=== PATIENT | female | born 1980 | race Caucasian/White ===

== ENCOUNTER 2016-06-01 09:07 | Emergency (ER) | payer MEDICAID ==
[~2016-06-01] VITALS: Ht 147.3 cm; Wt 77.1 kg
[~2016-06-01 09:07] MED LIST: ATEN50TA PO; ESZO3TAB10 PO; LORA2TAB95 PO; OXYC-133; ZOLP10TA2 PO; [UNRECOGNIZED DRUG - CODE]
[2016-06-01 09:12] VITALS: BP 119/90; PULSE 97; RESP 16; TEMP 97.8; O2SAT 99
--- NOTE | 2016-06-01 09:19 | NUR ---
Patient to ER bed 6 to gown for evaluation. Side rails up. Report given to Colleen TORIBIO.
--- NOTE | 2016-06-01 09:25 | NUR ---
Patient in bed, stable condition, alert and oriented x4. States was pulling laundry out and fell onto right side of body hitting leg and arm. States has pain in right knee, right thigh and right upper arm. Patient ambulating with steady gait, active range of motion in all joints. No deformities, bruising, or injury to body. No other complaints/injuries per patient or noted.
--- NOTE | 2016-06-01 09:34 | NUR ---
ER at bedside examining patient.
[2016-06-01] MEDS ORDERED: HYDROcodone/ACETAMIN 7.5-325 MG TAB PO ONE (09:45)
[2016-06-01] MEDS ORDERED: LORazepam 1 MG TABLET PO ONE (09:45)
--- NOTE | 2016-06-01 10:03 | NUR ---
Patient states can not urinate at this time (for pregancy test).
--- NOTE | 2016-06-01 10:31 | NUR ---
Patient refusing urine for test. aware.
[2016-06-01 11:05] VITALS: BP 121/77; PULSE 97; RESP 16; TEMP 98.1; O2SAT 99
--- NOTE | 2016-06-01 11:05 | NUR ---
Patient given written and verbal discharge instructions and verbalizes understanding. ER MD Dr. Lima discussed with patient the results and treatment provided. Patient in stable condition. ID arm band removed. No Rx given. Patient educated on pain management and to follow up with PMD. Pain Scale 0/10 Opportunity for questions provided and answered. Pt. not driving, waiting for her boyfriend to pick her up in the waiting area
== END 2016-06-01 11:05 | disposition home or self-care (01) ==
LOC: SED 09:07
DX: S80.01XA Contusion of right knee, initial encounter (principal); S70.11XA Contusion of right thigh, initial encounter; S40.021A Contusion of right upper arm, initial encounter; I10 Essential (primary) hypertension; Z88.0 Allergy status to penicillin; Z88.6 Allergy status to analgesic agent; Z91.048 Other nonmedicinal substance allergy status; W19.XXXA Unspecified fall, initial encounter; Y93.E2 Activity, laundry; Y92.89 Other specified places as the place of occurrence of the external cause; Y99.8 Other external cause status
CPT/HCPCS: 99283

== ENCOUNTER 2016-06-02 08:55 | Emergency (ER) | payer MEDICAID ==
[~2016-06-02] VITALS: Ht 147.3 cm; Wt 77.1 kg
[2016-06-02 08:55] VITALS: BP 121/80; PULSE 78; RESP 19; TEMP 98.1; O2SAT 97
--- NOTE | 2016-06-02 08:55 | NUR ---
BROUGHT IN BY PATT FARNSWORTH, PLACED IN BED #6 AND TRIAGED. REPORT GIVEN TO NURYS.
--- NOTE | 2016-06-02 09:01 | NUR ---
DR ROTH AT BEDSIDE FOR EVALUATION
[2016-06-02 09:12] VITALS: BP 117/78; PULSE 74; RESP 17; TEMP 98.7
--- NOTE | 2016-06-02 09:15 | NUR ---
OFFERED NON-NARCOTIC PAIN MEDICATION TO WHICH PT REFUSED.
[2016-06-02 09:20] VITALS: O2SAT 97
--- NOTE | 2016-06-02 09:20 | NUR ---
Patient given written and verbal discharge instructions and verbalizes understanding. ER MD discussed with patient the results and treatment provided. Given copies of tests performed in ER. Patient in stable condition. ID arm band removed. Rx of NONE given. Patient educated on pain management and to follow up with PMD. Pain Scale 0/10. Opportunity for questions provided and answered.
== END 2016-06-02 09:12 | disposition home or self-care (01) ==
LOC: SED 08:55
DX: G89.4 Chronic pain syndrome (principal); M79.601 Pain in right arm; I10 Essential (primary) hypertension; M41.9 Scoliosis, unspecified; Z88.0 Allergy status to penicillin; Z88.6 Allergy status to analgesic agent; Z91.048 Other nonmedicinal substance allergy status
CPT/HCPCS: 99283

== ENCOUNTER 2016-06-07 06:20 | Emergency (ER) | payer MEDICAID ==
[~2016-06-07] VITALS: Ht 147.3 cm; Wt 77.1 kg
[2016-06-07 06:20] VITALS: BP 136/71; PULSE 100; RESP 18; TEMP 97.8; O2SAT 96
--- NOTE | 2016-06-07 06:20 | NUR ---
PT BIB [facility] C/O BACK PAIN. PAIN SCALE 10/10. PT ALSO STATED SHE ALSO HAVE CHEST PAIN AND SOB BUT O2 SATURATION 96%. PT NOT IN CP DISTRESS AND WILL CONTINUE TO MONITOR.
--- NOTE | 2016-06-07 06:20 | NUR ---
Patient to ER bed 6 to gown for evaluation. Side rails up.
--- NOTE | 2016-06-07 07:00 | NUR ---
ER at bedside examining patient.
[2016-06-07 07:29] VITALS: BP 121/76; PULSE 78; RESP 17; TEMP 97.8; O2SAT 99
--- NOTE | 2016-06-07 07:31 | NUR ---
Patient given written and verbal discharge instructions and verbalizes understanding. ER MD discussed with patient the results of physical exam. ID arm band removed. No Rx given. Patient educated on pain management and to follow up with [facility] for Poly Substance Abuse. Pain Scale 3/10 Dr. Sun notified pain no medication given due to substance abuse and no ride home. Opportunity for questions provided and answered. Pt yelling as exiting emergency room stating she wants pain medication and is going to call 911. Dr Sun discussed with patient plan of care and informed pt to f/u with [facility] for detox from poly substance.
== END 2016-06-07 07:31 | disposition home or self-care (01) ==
LOC: SED 06:20
DX: Z76.5 Malingerer [conscious simulation] (principal); I10 Essential (primary) hypertension; R07.9 Chest pain, unspecified; F41.9 Anxiety disorder, unspecified; M41.9 Scoliosis, unspecified; Z88.0 Allergy status to penicillin; Z91.048 Other nonmedicinal substance allergy status; Z88.6 Allergy status to analgesic agent
CPT/HCPCS: 99283

== ENCOUNTER 2016-07-09 12:42 | Emergency (ER) | payer MEDICAID ==
[~2016-07-09] VITALS: Ht 147.3 cm; Wt 76.7 kg
[2016-07-09 12:50] VITALS: BP 114/67; PULSE 76; RESP 18; TEMP 98.2; O2SAT 98
--- NOTE | 2016-07-09 13:11 | NUR ---
Placed in room 3 . To gown for exam. Side rails up.
--- NOTE | 2016-07-09 13:13 | NUR ---
pt present to ED c/o of lower back pain for a couple of days, umbilical hernia pain for a while.pt awake,alert,no distress noted.
--- NOTE | 2016-07-09 13:23 | NUR ---
EVAN Chu at bedside examining patient.
--- NOTE | 2016-07-09 13:45 | NUR ---
Dr. Monahan at the bedside evaluating Pt. Currently awaiting for new orders.
[2016-07-09 13:50] VITALS: BP 124/64; PULSE 65; RESP 22; TEMP 98.5; O2SAT 99
--- NOTE | 2016-07-09 13:51 | NUR ---
Patient given written and verbal discharge instructions and verbalizes understanding. ER MD discussed with patient the results and treatment provided. Given copies of tests performed in ER. Patient in stable condition. ID arm band removed. IV catheter removed intact and dressing applied, no active bleeding. Rx of flexeril 5mg tab given. Patient educated on pain management and to follow up with PMD. Pain Scale 2/10. Opportunity for questions provided and answered.
== END 2016-07-09 13:51 | disposition home or self-care (01) ==
LOC: SED 12:42
DX: G89.29 Other chronic pain (principal); I10 Essential (primary) hypertension; Z88.5 Allergy status to narcotic agent; Z88.0 Allergy status to penicillin; Z91.048 Other nonmedicinal substance allergy status
CPT/HCPCS: 81025; 99283

== ENCOUNTER 2016-08-05 13:41 | Emergency (ER) | payer MEDICAID ==
[~2016-08-05] VITALS: Ht 147.3 cm; Wt 80.3 kg
[~2016-08-05 13:41] MED LIST changes: -ESZO3TAB10 PO; -LORA2TAB95 PO
--- NOTE | 2016-08-05 13:45 | NUR ---
Pt report received from CATARINO Crouch. Pt c/o mid chest pain since yesterday. Pt denies c/o radiation, no N/V reported. Non diaphoretic, VSS. Dr. Hernandez made aware of complaint.
--- NOTE | 2016-08-05 13:45 | NUR ---
Pt triaged, pt on stable condiiton VS WNL, EKG given to Dr Hernandez.
[2016-08-05 13:54] VITALS: BP_SYST 116
--- NOTE | 2016-08-05 14:00 | NUR ---
environmental services floor tech drawing cardiac blood work at this time
[2016-08-05 14:18] LABS: BASOPHILS # (AUTO) 0.1 K/uL (0.0-0.2); BASOPHILS % (AUTO) 0.7 % (0.0-2.0); EOSINOPHILS # (AUTO) 0.1 K/uL (0.0-0.4); EOSINOPHILS % (AUTO) 1.6 % (0.0-4.0); LYMPHOCYTES # (AUTO) 2.2 K/uL (1.0-5.5); MEAN CORPUSCULAR HEMOGLOBIN 22 pg (27-31); MEAN CORPUSCULAR HGB CONC 31 % (32-36); MEAN CORPUSCULAR VOLUME 70 fL (79.0-98.0); MONOCYTES # (AUTO) 0.8 K/uL (0.0-1.0); NEUTROPHILS # (AUTO) 5.8 K/uL (1.8-7.7); NEUTROPHILS % (AUTO) 63.7 % (40.0-70.0); PLATELET COUNT (AUTO) 227 K/uL (130-430); RED BLOOD CELL COUNT(AUTO) 4.58 MIL/uL (4.2-6.2); RED CELL DISTRIBUTION WIDTH 15.5 % (9.0-15.0); WHITE BLOOD COUNT (AUTO) 8.9 K/uL (4.8-10.8)
[2016-08-05 14:32] LABS: CALCIUM 9.1 mg/dL (8.4-11.0); CREATININE 0.7 mg/dL (0.55-1.30); POTASSIUM 3.6 mmol/L (3.5-5.1)
--- NOTE | 2016-08-05 15:19 | NUR ---
Dr. Hernandez at bedside to discuss POC.
--- NOTE | 2016-08-05 15:20 | NUR ---
Pt wants refill of psyc meds. States "my boyfriend has them and I can't get in touch with him."
[2016-08-05] MEDS ORDERED: IBUPROFEN 400 MG TABLET PO ONE (15:30)
--- NOTE | 2016-08-05 15:36 | NUR ---
endorsed patient from Yue Cordova.
[2016-08-05 15:41] LABS: SALICYLATE 1 mg/dL (3-30)
[2016-08-05 15:42] LABS: ALCOHOL, BLOOD < 3 mg/dL (<10)
[2016-08-05 16:22] LABS: BILIRUBIN,URINE NEGATIVE (NEGATIVE); BLOOD, URINE NEGATIVE (NEGATIVE); CLARITY/URINE CLEAR (CLEAR); COLOR,URINE YELLOW (YELLOW); GLUCOSE,URINE NEGATIVE (NEGATIVE); KETONES,URINE NEGATIVE (NEGATIVE); LEUKOCYTE ESTERASE ,URINE NEGATIVE (NEGATIVE); NITRITE, URINE NEGATIVE (NEGATIVE); PROTEIN URINE NEGATIVE (NEGATIVE); UROBILINOGEN,URINE 0.2 (0.2-1.0)
[2016-08-05 16:37] LABS: BARBITURATE, URINE POSITIVE (NEG <=200); BENZODIAZEPINE, URINE POSITIVE (NEG <=150); CANNABINOID, URINE NEGATIVE (NEG <=50); COCAINE, URINE NEGATIVE (NEG <=150); METHAMPHETAMINES SCREEN,URINE NEGATIVE (NEG <=500); OPIATE, URINE POSITIVE (NEG <=100); PHENCYCLIDINE SCREEN,URINE NEGATIVE (NEG <=25); UR TRICYCLIC ANTIDEPRESSANTS POSITIVE (NEG <=300); URINE AMPHETAMINE NEGATIVE (NEG <=500); URINE METHADONE NEGATIVE (NEG <=200); URINE OXYCODONE SCREEN NEGATIVE (NEG <=100); URINE PROPOXYPHENE SCREEN NEGATIVE (NEG <=300)
--- NOTE | 2016-08-05 16:53 | NUR ---
Psych eval team at bedside.
[2016-08-05 17:00] VITALS: BP_SYST 112
--- NOTE | 2016-08-05 17:00 | NUR ---
Patient given written and verbal discharge instructions and verbalizes understanding. ER MD discussed with patient the results and treatment provided. Patient in stable condition. ID arm band removed. Patient educated on pain management and to follow up with PMD. Pain Scale 0/10. Opportunity for questions provided and answered.
== END 2016-08-05 17:00 | disposition home or self-care (01) ==
LOC: SED 13:41
DX: R07.9 Chest pain, unspecified (principal); I10 Essential (primary) hypertension; Z88.5 Allergy status to narcotic agent; Z88.0 Allergy status to penicillin; Z91.048 Other nonmedicinal substance allergy status
CPT/HCPCS: 36415; 80048; 80307; 81003; 84484; 85025; 93005; 99285; G0481; G0482

== ENCOUNTER 2017-02-24 20:07 | Emergency (ER) | payer MEDICAID, OTHER ==
[~2017-02-24] VITALS: Ht 147.3 cm; Wt 81.6 kg
[2017-02-24 20:22] VITALS: BP_SYST 139
[2017-02-24 21:05] LABS: BILIRUBIN,URINE NEGATIVE (NEGATIVE); BLOOD, URINE NEGATIVE (NEGATIVE); CLARITY/URINE CLEAR (CLEAR); COLOR,URINE YELLOW (YELLOW); GLUCOSE,URINE NEGATIVE (NEGATIVE); KETONES,URINE NEGATIVE (NEGATIVE); LEUKOCYTE ESTERASE ,URINE NEGATIVE (NEGATIVE); NITRITE, URINE NEGATIVE (NEGATIVE); PH,URINE 5.5 (5.0-8.0); PROTEIN URINE NEGATIVE (NEGATIVE); UROBILINOGEN,URINE 0.2 (0.2-1.0)
[2017-02-24 21:36] LABS: BARBITURATE, URINE NEGATIVE (NEG <=200); BENZODIAZEPINE, URINE POSITIVE (NEG <=150); CANNABINOID, URINE NEGATIVE (NEG <=50); COCAINE, URINE NEGATIVE (NEG <=150); METHAMPHETAMINES SCREEN,URINE NEGATIVE (NEG <=500); OPIATE, URINE NEGATIVE (NEG <=100); PHENCYCLIDINE SCREEN,URINE NEGATIVE (NEG <=25); UR TRICYCLIC ANTIDEPRESSANTS NEGATIVE (NEG <=300); URINE AMPHETAMINE NEGATIVE (NEG <=500); URINE METHADONE NEGATIVE (NEG <=200); URINE OXYCODONE SCREEN NEGATIVE (NEG <=100); URINE PROPOXYPHENE SCREEN NEGATIVE (NEG <=300)
[2017-02-24] MEDS ORDERED: MORPHINE 4 MG/ML INJ. SYRINGE IM ONE (21:45)
[2017-02-24] MEDS ORDERED: ONDANSETRON HCL 4 MG/2 ML VIAL IM ONE (22:00)
[2017-02-24] MEDS ORDERED: LORazepam 2 MG/ML VIAL (FOR ER USE) IM ONE (23:30)
[2017-02-24 23:44] VITALS: BP_SYST 139
== END 2017-02-24 23:44 | disposition home or self-care (01) ==
LOC: SED 20:07
DX: K52.9 Noninfective gastroenteritis and colitis, unspecified (principal); I10 Essential (primary) hypertension; F41.9 Anxiety disorder, unspecified; M41.9 Scoliosis, unspecified; Z88.0 Allergy status to penicillin; Z88.6 Allergy status to analgesic agent; Z91.048 Other nonmedicinal substance allergy status; Z88.1 Allergy status to other antibiotic agents
CPT/HCPCS: 80307; 81003; 81025; 96372; 99284; J2060; J2270; J2405

== ENCOUNTER 2017-04-10 09:45 | Emergency (ER) | payer OTHER ==
[~2017-04-10] VITALS: Ht 147.3 cm; Wt 83.0 kg
[2017-04-10 10:04] VITALS: BP_SYST 116
[2017-04-10] MEDS: HYDROcodone/ACETAMIN 10-325 MG TAB PO ONE (10:42)
== END 2017-04-10 10:52 | disposition home or self-care (01) ==
LOC: SED 09:45
DX: G89.29 Other chronic pain (principal); M54.9 Dorsalgia, unspecified; I10 Essential (primary) hypertension; F41.9 Anxiety disorder, unspecified; M41.9 Scoliosis, unspecified; Z88.0 Allergy status to penicillin; Z88.6 Allergy status to analgesic agent; Z88.5 Allergy status to narcotic agent; Z91.048 Other nonmedicinal substance allergy status
CPT/HCPCS: 99283

== ENCOUNTER 2017-04-28 21:40 | Emergency (ER) | payer OTHER ==
[~2017-04-28] VITALS: Ht 147.3 cm; Wt 72.6 kg
[2017-04-28 21:55] VITALS: BP_SYST 152
--- NOTE | 2017-04-28 21:55 | NUR ---
Pt sttaes that she is out of her ativan medication and is having an anxiety attack. Pt would like a refill. Will continue to monitor. No distress noted. AAOx4.
--- NOTE | 2017-04-28 22:34 | NUR ---
ER Dr. Rico examining patient.
[2017-04-28 22:38] VITALS: BP_SYST 152
--- NOTE | 2017-04-28 22:38 | NUR ---
Patient given written and verbal discharge instructions and verbalizes understanding. ER MD discussed with patient the results and treatment provided. Patient in stable condition. ID arm band removed. Rx of Ativan given. Patient educated on pain management and to follow up with PMD. Pain Scale 0/10. Opportunity for questions provided and answered.
== END 2017-04-28 22:38 | disposition home or self-care (01) ==
LOC: SED 21:40
DX: F41.9 Anxiety disorder, unspecified (principal); I10 Essential (primary) hypertension; M41.9 Scoliosis, unspecified; Z88.0 Allergy status to penicillin; Z88.1 Allergy status to other antibiotic agents; Z88.6 Allergy status to analgesic agent; Z91.048 Other nonmedicinal substance allergy status
CPT/HCPCS: 99283

== ENCOUNTER 2017-05-02 14:07 | Emergency (ER) | payer OTHER ==
[~2017-05-02] VITALS: Ht 147.3 cm; Wt 81.6 kg
[2017-05-02 14:07] VITALS: BP_SYST 146
--- NOTE | 2017-05-02 14:07 | NUR ---
BROUGHT IMMEDIATELY BACK TO BED #5 AND TRIAGED. REPORT GIVEN TO ARIES
--- NOTE | 2017-05-02 14:12 | NUR ---
Patient to ER bed 05 to gown for evaluation. Side rails up. Report given to Kassi TORIBIO.
--- NOTE | 2017-05-02 14:20 | NUR ---
Pt AAOx4 ambulated into ED c/o anxiety and suicidal ideations x 3 days. Pt reports attempting to cut her L wrist with a razor. Pt L wrist intact, no signs of trauma, no deformities present. Pt crying at bedside reporting feeling stressed, anxious, and thirsty. PT states "I'm really scared that nobody believes me." Pt reports not sleeping x 3 days. Pt states she takes norco and ativan which relieved symptoms, but "I feel worse once the meds wear off." Pt reports feeling 10/10 pain on lower back. Will continue to monitor.
--- NOTE | 2017-05-02 14:30 | NUR ---
Pt removed all clothing and shoes and changed into a hospital gown. Pt is crying and in emotional distress but is compliant. All belongings secured in a labeled belongings bag, and belongings checklist completed at this time.
--- NOTE | 2017-05-02 14:45 | NUR ---
Pt lying down in bed and states she wishes she was . Still crying. Will continue to observe.
--- NOTE | 2017-05-02 15:15 | NUR ---
Evaluation by Dr. Godoy at this time.
--- NOTE | 2017-05-02 15:30 | NUR ---
Scientist/Engineer Will at bedside for blood draw.
--- NOTE | 2017-05-02 15:45 | NUR ---
Escorted to the restroom at this time.
[2017-05-02 15:49] LABS: BILIRUBIN,URINE NEGATIVE (NEGATIVE); BLOOD, URINE NEGATIVE (NEGATIVE); CLARITY/URINE CLEAR (CLEAR); COLOR,URINE YELLOW (YELLOW); GLUCOSE,URINE NEGATIVE (NEGATIVE); KETONES,URINE NEGATIVE (NEGATIVE); LEUKOCYTE ESTERASE ,URINE NEGATIVE (NEGATIVE); NITRITE, URINE NEGATIVE (NEGATIVE); PH,URINE 5.5 (5.0-8.0); PROTEIN URINE NEGATIVE (NEGATIVE); UROBILINOGEN,URINE 0.2 (0.2-1.0)
[2017-05-02 15:54] LABS: BARBITURATE, URINE NEGATIVE (NEG <=200); BENZODIAZEPINE, URINE POSITIVE (NEG <=150); CANNABINOID, URINE NEGATIVE (NEG <=50); COCAINE, URINE NEGATIVE (NEG <=150); METHAMPHETAMINES SCREEN,URINE NEGATIVE (NEG <=500); OPIATE, URINE NEGATIVE (NEG <=100); PHENCYCLIDINE SCREEN,URINE NEGATIVE (NEG <=25); UR TRICYCLIC ANTIDEPRESSANTS POSITIVE (NEG <=300); URINE AMPHETAMINE NEGATIVE (NEG <=500); URINE METHADONE NEGATIVE (NEG <=200); URINE OXYCODONE SCREEN NEGATIVE (NEG <=100); URINE PROPOXYPHENE SCREEN NEGATIVE (NEG <=300)
--- NOTE | 2017-05-02 16:00 | NUR ---
Jered TORIBIO at bedside to start IV line.
[2017-05-02 16:07] LABS: BASOPHILS % (AUTO) 0.4 % (0.0-2.0); EOSINOPHILS % (AUTO) 0.6 % (0.0-4.0); HEMATOCRIT 39.9 % (36-48); HEMOGLOBIN 12.7 g/dL (12.0-16.0); LYMPHOCYTES # (AUTO) 1.5 K/uL (1.0-5.5); LYMPHOCYTES % (AUTO) 19.1 % (20.5-51.5); MEAN CORPUSCULAR HEMOGLOBIN 27 pg (27-31); MEAN CORPUSCULAR HGB CONC 32 % (32-36); MEAN CORPUSCULAR VOLUME 84 fL (79.0-98.0); MONOCYTES # (AUTO) 0.5 K/uL (0.0-1.0); NEUTROPHILS # (AUTO) 5.7 K/uL (1.8-7.7); NEUTROPHILS % (AUTO) 73.9 % (40.0-70.0); PLATELET COUNT (AUTO) 231 K/uL (130-430); RED BLOOD CELL COUNT(AUTO) 4.75 MIL/uL (4.2-6.2); RED CELL DISTRIBUTION WIDTH 14.6 % (9.0-15.0); WHITE BLOOD COUNT (AUTO) 7.7 K/uL (4.8-10.8)
--- NOTE | 2017-05-02 16:15 | NUR ---
Kassi TORIBIO at bedside to medicate pt.
[2017-05-02 16:20] LABS: ANION GAP 9 (5-15); CHLORIDE 105 mmol/L (98-107); GLUCOSE 121 mg/dL (70-99); POTASSIUM 3.6 mmol/L (3.5-5.1); SODIUM SERUM 139 mmol/L (136-145); UREA NITROGEN, BLOOD 9 mg/dL (8-21)
[2017-05-02 16:21] LABS: CREATININE 0.59 mg/dL (0.55-1.30); GFR AFRICAN AMERICAN 147 mL/min (>90)
[2017-05-02] MEDS: OXYCODONE/ACETAMINOPHEN *10*mg/325 mg TABLET PO ONE (16:22)
[2017-05-02] MEDS: ONDANSETRON HCL 4 MG/2 ML VIAL IVP ONE (16:22)
--- NOTE | 2017-05-02 16:22 | NUR ---
Danna correa in [facility] - 05/02/17 at 1623 by [facility] Kassi TORIBIO at bedside to medicate.
[2017-05-02] MEDS: LORazepam 1 MG TABLET PO ONE (16:23)
[2017-05-02 16:25] LABS: ASPARTATE AMINOTRANSFERASE 17 U/L (10-37); TOTAL BILIRUBIN 0.3 mg/dL (0.0-1.0)
[2017-05-02 16:26] LABS: ACETAMINOPHEN < 1 ug/mL (1-30); ALANINE AMINOTRANSFERASE 23 U/L (12-78); ALBUMIN 4.2 g/dL (3.4-4.8)
--- NOTE | 2017-05-02 16:30 | NUR ---
Pt is sitting up and crying, stating that she is agitated. Kassi RN at bedside to start 1L NS IV bolus. Pt given cup of ice and apple juice upon request.
[2017-05-02] MEDS: NACL 0.9% 1,000 ML IV ONE (16:35)
--- NOTE | 2017-05-02 16:45 | NUR ---
Escorted to restroom and back to bed. Kassi RN at bedside for evaluation.
--- NOTE | 2017-05-02 17:00 | NUR ---
Pt is in bed and states she is feeling less anxious, relieved of her agitation, and that her pain level is now 3/10. Waiting for dietary to deliver food tray.
--- NOTE | 2017-05-02 17:15 | NUR ---
Dietary staff delivered soft food diet tray. Pt is eating at this time.
--- NOTE | 2017-05-02 18:09 | NUR ---
PT IS AWAKE AND ALERT. CALM AND VERY TALKATIVE
[2017-05-02] MEDS: LORazepam 2 MG/ML VIAL (FOR ER USE) IVP ONE (18:11)
[2017-05-02] MEDS: DIPHENHYDRAMINE INJ 50 MG/ML VIAL IVP ONE ×2 (18:11→19:42)
--- NOTE | 2017-05-02 18:14 | NUR ---
pt is on the phone with her fiance. He wanted to speak with me. He stated that she has an appointment with Mental health services and her psych on this April.
--- NOTE | 2017-05-02 18:31 | NUR ---
pt is calm. No distress. Her pain level is a 3/10.
--- NOTE | 2017-05-02 18:38 | NUR ---
pt is asking for percocet for her headache.
--- NOTE | 2017-05-02 18:48 | NUR ---
pt is compaining about headache and saying her pain is now 10/10. Pt also stated that she likes to come to the hospital because of the "good medication". pt is now sitting up.
--- NOTE | 2017-05-02 19:00 | NUR ---
Took pt to the restroom. Pt is back in bed.
--- NOTE | 2017-05-02 19:14 | NUR ---
Pt is falling asleep. No signs of distress. Will continue to monitor
--- NOTE | 2017-05-02 19:15 | NUR ---
Suicide Risk and Lethality Admission Assessment completed and placed in patient chart.
--- NOTE | 2017-05-02 19:20 | NUR ---
Care endorsed to Windy TORIBIO
--- NOTE | 2017-05-02 19:20 | NUR ---
Pt is awake. Complaining about headache. pt keeps stating she wants more drugs.
[2017-05-02] MEDS: ACETAMINOPHEN 500 MG TABLET PO ONE (19:25)
--- NOTE | 2017-05-02 19:26 | NUR ---
Patient refused tylenol for headache. Patient states she needs stronger meds. No acute distress noted. Will continue to monitor.
--- NOTE | 2017-05-02 19:26 | NUR ---
Pt is crying and in distress wanting stronger medication. Screaming "I want to go to sleep".
--- NOTE | 2017-05-02 19:41 | NUR ---
pt is in great distress screaming that "no one is listening" to her. pt is requesting norcos and screaming due to not recieving any. Will continue to monitor.
[2017-05-02] MEDS: HALOPERIDOL LACTATE 5 MG/ML VIAL IVP ONE (19:44)
--- NOTE | 2017-05-02 19:46 | NUR ---
pt is now asleep. Stevie contine to monitor
--- NOTE | 2017-05-02 19:59 | NUR ---
pt is asleep. will continue to monitor
--- NOTE | 2017-05-02 20:00 | NUR ---
PT is sleeping and in no sign of distress. will continue to monitor.
--- NOTE | 2017-05-02 20:05 | NUR ---
PET Team at bedside, examining patient.
--- NOTE | 2017-05-02 20:17 | NUR ---
PET team is bedside. pt is still sleeping. Pt is in no distress. Will continue to monitor.
--- NOTE | 2017-05-02 20:18 | NUR ---
Patient placed on 5150 hold by PET team.
--- NOTE | 2017-05-02 20:25 | NUR ---
Pt is sleeping. pt has no signs of distress. Will continue to monitor.
--- NOTE | 2017-05-02 20:45 | NUR ---
Pt is sleeping and in now sign of distress. will continue to monitor.
--- NOTE | 2017-05-02 21:15 | NUR ---
PT is sleeping and in no sign of distress. will continue to monitor.
--- NOTE | 2017-05-02 21:34 | NUR ---
Pt is sleeping. No signs of distress. will continue to monitor.
--- NOTE | 2017-05-02 21:51 | NUR ---
pt is sleeping. No signs of distress. will continue to monitor
--- NOTE | 2017-05-02 22:02 | NUR ---
Pt is sleeping. no signs of distress. will continue to monitor.
--- NOTE | 2017-05-02 22:16 | NUR ---
PT is sleeping. No signs of distress. Will continue to monitor.
--- NOTE | 2017-05-02 22:30 | NUR ---
Pt is awake and is requesting for another dose of Ativan. Dr. Pang says that she cannot have any more Ativan at this time. Pt remains calm and states that her mouth is dry. She is given cup of iced water.
--- NOTE | 2017-05-02 22:45 | NUR ---
Pt is asleep. No signs of distress. Will continue to monitor.
--- NOTE | 2017-05-02 23:00 | NUR ---
Pt is asleep. No signs of distress. Will continue to monitor.
--- NOTE | 2017-05-02 23:10 | NUR ---
Pt is asleep. No signs of distress. Will continue to monitor.
--- NOTE | 2017-05-02 23:42 | NUR ---
PT is asleep. No signs of distress. Will continue to monitor.
--- NOTE | 2017-05-03 | NUR ---
pt is sleeping. no signs of distress. Will continue to monitor.
--- NOTE | 2017-05-03 00:15 | NUR ---
pt is sleeping. no signs of any distress. Will continue to monitor.
--- NOTE | 2017-05-03 00:30 | NUR ---
PT is sleeping. no sign of distress. will continue to monitor.
--- NOTE | 2017-05-03 00:45 | NUR ---
PT is sleeping. No signs of distress. Will continue to monitor.
--- NOTE | 2017-05-03 01:00 | NUR ---
pt is sleeping. no signs of distress. Will continue to monitor.
--- NOTE | 2017-05-03 01:15 | NUR ---
PT is sleeping. no signs of distress. will continue to monitor.
--- NOTE | 2017-05-03 01:30 | NUR ---
pt is sleeping. No signs of distress. Will continue to monitor.
--- NOTE | 2017-05-03 01:45 | NUR ---
Pt is asleep. No sign of distress at this time. Will continue to monitor.
--- NOTE | 2017-05-03 02:00 | NUR ---
Pt is asleep. No sign of distress at this time. Will continue to monitor.
--- NOTE | 2017-05-03 02:10 | NUR ---
Spoke w/ Kye, pt's significant other, he advised me that pt has a psych appt on and they are trying to take pt down to [facility] to have insurance switch over to [facility]. Once insurance has switched over, they are going to placed pt on waiting list for [facility]. Pt's delinquency prevention social worker is Jessica Crooks [phone] or [phone] and Olga.
--- NOTE | 2017-05-03 02:15 | NUR ---
Pt is asleep. No sign of distress at this time. Will continue to monitor.
--- NOTE | 2017-05-03 02:30 | NUR ---
pt is asleep. No signs of distress at this time. Will continue to monitor.
--- NOTE | 2017-05-03 02:45 | NUR ---
Pt is asleep. No sign of distress at this time. Will continue to monitor.
--- NOTE | 2017-05-03 03:00 | NUR ---
Pt is asleep. No sign of distress at this time. Will continue to monitor.
--- NOTE | 2017-05-03 03:14 | NUR ---
Pt is asleep. No sign of distress at this time. Will continue to monitor.
--- NOTE | 2017-05-03 03:30 | NUR ---
PT is asleep. No signs of distress. Will continue to monitor.
--- NOTE | 2017-05-03 03:53 | NUR ---
pt is awake. Escorted pt to the restroom. pt is back in bed resting.
--- NOTE | 2017-05-03 04:00 | NUR ---
Pt is asleep. No sign of distress at this time. Will continue to monitor.
--- NOTE | 2017-05-03 04:15 | NUR ---
Pt is asleep. No sign of distress at this time. Will continue to monitor.
--- NOTE | 2017-05-03 04:30 | NUR ---
Pt is asleep. No sign of distress at this time. Will continue to monitor.
--- NOTE | 2017-05-03 04:45 | NUR ---
Pt is asleep. No sign of distress at this time. Will continue to monitor.
--- NOTE | 2017-05-03 05:03 | NUR ---
Pt is asleep. No sign of distress at this time. Will continue to monitor.
--- NOTE | 2017-05-03 05:18 | NUR ---
Pt is asleep. No sign of distress at this time. Will continue to monitor.
--- NOTE | 2017-05-03 05:30 | NUR ---
Pt is asleep. No sign of distress at this time. Will continue to monitor.
--- NOTE | 2017-05-03 05:45 | NUR ---
Pt is asleep. No sign of distress at this time. Will continue to monitor.
--- NOTE | 2017-05-03 06:00 | NUR ---
pt is asleep. no signs of distress. will continue to monitor.
--- NOTE | 2017-05-03 06:09 | NUR ---
pt is awake. Pt is sitting up and asking for medication. Pt is stating she has a headache and needs ativan and tyleol to help.
--- NOTE | 2017-05-03 06:24 | NUR ---
pt states her pain scale is 7/10 due to her headache. Pt states that her anxiety is getting worse and that she cannot sit still.
--- NOTE | 2017-05-03 06:39 | NUR ---
Patient ambulated to bathroom. Vital signs checked, WNL. Patient axious and stating " I need my ativan, I have my ativan at home, can I have my ativan now."
--- NOTE | 2017-05-03 06:45 | NUR ---
Received report at bedside PT is laying in bed asleep.
--- NOTE | 2017-05-03 07:00 | NUR ---
PT is up and agitated, she keeps saying "she needs to talk to the DR. I need my Ativan I take it at home.".
--- NOTE | 2017-05-03 07:05 | NUR ---
Report given to CATARINO Alejandro. All care endorsed.
--- NOTE | 2017-05-03 07:15 | NUR ---
PT is sitting upright in bed crying and is anxious. RN came to bedside and talked to the patient about her being able to receive the Ativan. PT is now more relaxed and cooperative and is asking for food.
--- NOTE | 2017-05-03 07:30 | NUR ---
PT laying in bed getting agitated asking why she has not received the Ativan yet, complaining that it is taking too long.
--- NOTE | 2017-05-03 07:45 | NUR ---
PT reports feeling anxious, tossing and turning in bed. Calling out at Nurses walking by. PT then assisted to the bathroom and is now sitting upright.
--- NOTE | 2017-05-03 08:00 | NUR ---
PT is sitting upright still anxious and and requests to speak with the RN.
[2017-05-03] MEDS: LORazepam 2 MG/ML VIAL (FOR ER USE) IVP ONE ×3 (08:26→18:02)
--- NOTE | 2017-05-03 08:29 | NUR ---
Assessment- A&O x4, Respiration even unlabored and clear no s/s of distress, pt states she wanted to get her life by cutting her wrist, no attempt, hx of SI with no attempts states last ideation was last year. Hx of anxiety and depression states taking her medication on regular basis. Lives with pamella, son (5yrs old) and pamella's parents. States home life is stable with good support and resources. Pt statesed she wanted to "end it all" because she has not been able to sleep x 3 days prior to coming into hospital. Pt states anxiety level 9/10 Ativan 1mg given per MD order, safety food tray provided. Pt does c/o RUCKER 9/10 with back pain. VS updated will continue to monitor closely. Addendum: 05/03/[address] Assessment- A&O x4, Respiration even unlabored and clear no s/s of distress, pt states she wanted to end her life by cutting her wrist, no attempt, hx of SI with no attempts states last ideation was last year. Hx of anxiety and depression states taking her medication on regular basis. Lives with pamella, son (5yrs old) and pamella's parents. States home life is stable with good support and resources. Pt stated she wanted to "end it all" because she has not been able to sleep x 3 days prior to coming into hospital. Pt states anxiety level 9/10 Ativan 1mg given per MD order, safety food tray provided. Pt does c/o RUCKER 9/10 with back pain. VS updated will continue to monitor closely.
--- NOTE | 2017-05-03 08:30 | NUR ---
RN in room doing assessment.
--- NOTE | 2017-05-03 08:40 | NUR ---
lethality assessment completed and place in chart
--- NOTE | 2017-05-03 08:45 | NUR ---
PT finished her meal and requested a phone call. Phone call was attempted but nobody picked up. PT is now in bed attempting to sleep.
--- NOTE | 2017-05-03 09:00 | NUR ---
PT in bed resting.
--- NOTE | 2017-05-03 09:15 | NUR ---
PT in bed sleeping.
--- NOTE | 2017-05-03 09:24 | NUR ---
Report given to donny pollard. PT still in bed asleep.
--- NOTE | 2017-05-03 09:30 | NUR ---
pt is asleep in bed. no signs of distress. will continue to monitor.
--- NOTE | 2017-05-03 09:45 | NUR ---
pt is sleeping in bed. no signs of distress. will continue to monitor.
--- NOTE | 2017-05-03 10:00 | NUR ---
pt is sleeping in bed. no signs of distress. will continue to monitor.
--- NOTE | 2017-05-03 10:15 | NUR ---
pt is sleeping in bed. no signs of distress. will continue to monitor.
--- NOTE | 2017-05-03 10:19 | NUR ---
pt woke up and stated her headache was a 10/10.
--- NOTE | 2017-05-03 10:30 | NUR ---
pt is awake in bed. stated her headache was 10/10. requested narcos because she was having an anxiety attack. pt is currently laying in bed drinking apple juice. will continue to monitor.
--- NOTE | 2017-05-03 10:36 | NUR ---
assisted pt to bathroom and pt is back in bed calling . will continue to monitor.
--- NOTE | 2017-05-03 10:36 | NUR ---
Pt stating she is having anxiety attack, pt easily calmed down. Resting in gurney juice provided. Sitter at bedside
--- NOTE | 2017-05-03 10:39 | NUR ---
Viry wipes provided
--- NOTE | 2017-05-03 10:45 | NUR ---
pt is sleeping in bed. no signs of distress. will continue to monitor.
--- NOTE | 2017-05-03 10:49 | NUR ---
Medication ordered for anxiety pt resting with eyes closed, medication held.
--- NOTE | 2017-05-03 11:00 | NUR ---
pt is sleeping in bed. no signs of distress. will continue to monitor.
--- NOTE | 2017-05-03 11:15 | NUR ---
pt is awake in bed askuing for the RN. pt said he pain is an 8/10 and feels anxious and shakey. will continue to monitor.
--- NOTE | 2017-05-03 11:32 | NUR ---
pt is getting frustrated and crying and yelling stating "no one wants me here. i dont want to live. no one is listening to me. everyone hates me" tried to calm pt down by talking about her family and she de-escalated for a bit but continued to yell and cry.
[2017-05-03] MEDS: HALOPERIDOL LACTATE 5 MG/ML VIAL IVP ONE (11:41)
[2017-05-03] MEDS: DIPHENHYDRAMINE INJ 50 MG/ML VIAL IVP ONE ×2 (11:41→18:03)
--- NOTE | 2017-05-03 11:50 | NUR ---
Patient crying, yelling, requesting percocet and ativan attempting to deescalated. Dr. Godoy spoke with patient, haldol and benadryl given placed on featheredge machine operator. Pt requested to use restroom stating she started her period, underwear and pad provided. Sitter at bedside
--- NOTE | 2017-05-03 11:50 | NUR ---
assisted pt to the bathroom and pt is back in bed. will continue to monitor.
--- NOTE | 2017-05-03 12:00 | NUR ---
pt is awake resting in bed. no signs of distress. will continue to monitor.
--- NOTE | 2017-05-03 12:15 | NUR ---
pt is awake and taking meds. safety tray is on the way. no signs of distress. will continue to monitor.
[2017-05-03] MEDS: OXYCODONE/ACETAMINOPHEN *10*mg/325 mg TABLET PO ONE (12:18)
--- NOTE | 2017-05-03 12:20 | NUR ---
Medicated with Percocet per Dr. Godoy's order for 01/27 back pain. On cardiac/spo2 monitor with high alarms. Side rails x 2 bed low brake on
--- NOTE | 2017-05-03 12:30 | NUR ---
pt is eating lunch, safety tray. no signs of distress. will continue to monitor.
--- NOTE | 2017-05-03 12:37 | NUR ---
pt said she was getting tired so she asked if she can just eat the rest later. pt is resting in bed. no signs of distress. will continue to monitor.
--- NOTE | 2017-05-03 12:45 | NUR ---
pt is resting in bed. no signs of distress. will continue to monitor.
--- NOTE | 2017-05-03 13:00 | NUR ---
pt is resting in bed. no signs of distress. will continue to monitor.
--- NOTE | 2017-05-03 13:09 | NUR ---
Pt inquiring about percocet duration and when her next dose of medication is. Pt verbilizing anxiety with no s/s of distress at this time
--- NOTE | 2017-05-03 13:19 | NUR ---
assisted pt to the bathroom. pt is now laying in bed. no signs of distress. will continue to monitor.
--- NOTE | 2017-05-03 13:30 | NUR ---
pt is awake and getting anxious. RN is speaking with pt about calming down. will continue to monitor.
--- NOTE | 2017-05-03 13:42 | NUR ---
Medicated with Ativan 2mg IVP on cardiac/spo2 monitor with high alarms side rails x 2 sitter at bedside. Will cont to monitor
--- NOTE | 2017-05-03 13:45 | NUR ---
pt is relaxing in bed. no signs of distress. will continue to monitor.
--- NOTE | 2017-05-03 13:54 | NUR ---
assisted pt to bathroom pt back in bed. will continue to monitor.
--- NOTE | 2017-05-03 14:00 | NUR ---
pt is resting in bed. no signs of distress. will continue to monitor.
--- NOTE | 2017-05-03 14:15 | NUR ---
pt is sleeping in bed. no signs of distress. will continue to monitor.
--- NOTE | 2017-05-03 14:30 | NUR ---
pt is sleeping in bed. no signs of distress. will continue to monitor.
--- NOTE | 2017-05-03 14:45 | NUR ---
pt is sleeping in bed. no signs of distress. will continue to monitor.
--- NOTE | 2017-05-03 15:07 | NUR ---
pt is resting in bed. no signs of distress will continue to monitor.
--- NOTE | 2017-05-03 15:15 | NUR ---
pt is sleeping in bed. no signs of distress. will continue to monitor.
--- NOTE | 2017-05-03 15:30 | NUR ---
pt is sleeping in bed. no signs of distress. will continue to monitor.
--- NOTE | 2017-05-03 15:45 | NUR ---
pt is in bed sleeping. pt said her pain is 0/10. no signs of distress. will continue to monitor.
--- NOTE | 2017-05-03 16:00 | NUR ---
Assumed care of patient at this time. Patient resting quietly in no acute distress on right side. Patient remains on process consultant, showing sinus rhythm without ectopy. Respirations even and unlabored, oxygen saturation of >95%, skin warm and dry to touch. Patient laying on right side in position of comfort, awaiting dispo.
--- NOTE | 2017-05-03 16:00 | NUR ---
pt is sleeping in bed. no signs of distress. will continue to monitor.
--- NOTE | 2017-05-03 16:15 | NUR ---
pt is sleeping in bed. no signs of distress. will continue to monitor.
--- NOTE | 2017-05-03 16:30 | NUR ---
pt is sleeping in bed. no signs of distress. will continue to monitor.
--- NOTE | 2017-05-03 16:45 | NUR ---
pt is asleep in bed. no signs of distress. will continue to monitor.
--- NOTE | 2017-05-03 17:00 | NUR ---
pt is sleeping in bed. no signs of distress. will continue to monitor.
--- NOTE | 2017-05-03 17:15 | NUR ---
pt is sleeping in bed. no signs of distress. will continue to monitor.
--- NOTE | 2017-05-03 17:30 | NUR ---
pt is awake and relaxing in bed. no signs of distress. will continue to monitor.
--- NOTE | 2017-05-03 17:45 | NUR ---
pt is awake and relaxed. pt is conversing with me about son. no signs of distress. will continue to monitor.
--- NOTE | 2017-05-03 18:00 | NUR ---
pt is laying in bed speaking about family. no signs of distress. will continue to monitor.
--- NOTE | 2017-05-03 18:00 | NUR ---
Patient has been medicated with Benadryl, and Ativan per MD order. Patient reports that she was feeling like she was having a Panic Attack. Patient has been seen and re-evaluated by Dr Godoy and orders were implemented as ordered.
--- NOTE | 2017-05-03 18:15 | NUR ---
Patient resting comfortably. Will continue to monitor
--- NOTE | 2017-05-03 18:30 | NUR ---
Patient resting comfortably. Will continiue to monitor.
--- NOTE | 2017-05-03 18:45 | NUR ---
Patient comfortable and resting. Will continue to monitor.
--- NOTE | 2017-05-03 19:00 | NUR ---
Patient comfortable and resting. Will continue to monitor
--- NOTE | 2017-05-03 19:15 | NUR ---
Patient served dinner and eating. Will continue to monitor.
--- NOTE | 2017-05-03 19:30 | NUR ---
Patient comfortable and resting. Will continue to monitor.
--- NOTE | 2017-05-03 19:45 | NUR ---
Assisting patient to the restroom. Will continue to monitor.
--- NOTE | 2017-05-03 20:01 | NUR ---
Patient resting. Will continue to monitor.
--- NOTE | 2017-05-03 20:15 | NUR ---
Patient is resting. Will continue to monitor.
--- NOTE | 2017-05-03 20:30 | NUR ---
Patient is resting. Will continue to monitor.
--- NOTE | 2017-05-03 20:45 | NUR ---
Patient is resting. Will continue to monitor.
--- NOTE | 2017-05-03 21:00 | NUR ---
Patient resting. Will continue to monitor.
--- NOTE | 2017-05-03 21:15 | NUR ---
Patient is resting. Will continue to monitor.
--- NOTE | 2017-05-03 21:30 | NUR ---
Patient resting. Will continue to monitor.
--- NOTE | 2017-05-03 21:45 | NUR ---
Patient is resting. Will continue to monitor.
--- NOTE | 2017-05-03 22:00 | NUR ---
Patient resting. Will continue to monitor.
--- NOTE | 2017-05-03 22:15 | NUR ---
Patient is resting. Will continue to monitor.
--- NOTE | 2017-05-03 22:30 | NUR ---
Patient is resting. Will continue to monitor.
--- NOTE | 2017-05-03 22:45 | NUR ---
Patient used the restroom with assistance. Patient back in bed resting.
--- NOTE | 2017-05-03 23:00 | NUR ---
Patient resting in bed. Will continue to monitor.
--- NOTE | 2017-05-03 23:15 | NUR ---
Patient resting in bed. Will continue to monitor
--- NOTE | 2017-05-03 23:30 | NUR ---
Patient resting in bed. Will continue to monitor.
--- NOTE | 2017-05-03 23:45 | NUR ---
Patient resting in bed. Will continue to monitor.
--- NOTE | 2017-05-04 | NUR ---
Patient resting quietly in no acute distress, will continue to observe and assess.
--- NOTE | 2017-05-04 00:15 | NUR ---
Patient up to bathroom with slow, steady gait in no acute distress. Patient back to bed, with slow steady gait. Respirations even and unlabored, skins warm and dry to touch. Will continue to observe and assess.
--- NOTE | 2017-05-04 00:29 | NUR ---
pt up using the restroom . back in bed sitting at the end up the bed just staring at the ground.
--- NOTE | 2017-05-04 00:45 | NUR ---
Patient resting quietly in no acute distress, will continue to observe and assess.
--- NOTE | 2017-05-04 00:58 | NUR ---
Patient requesting OB pads, stating that she is on her period. Patient provided with OB pads x 3. Patient also requesting Tylenol for discomfort from her period. Will notify Dr Molina of patient's request for Tylenol.
--- NOTE | 2017-05-04 01:15 | NUR ---
Patient resting in bed. Will continue to monitor
--- NOTE | 2017-05-04 01:30 | NUR ---
Patient resting in bed. Will continue to monitor
--- NOTE | 2017-05-04 01:45 | NUR ---
Patient resting in bed. Will continue to monitor.
--- NOTE | 2017-05-04 02:00 | NUR ---
Patient resting in bed. Will continue to monitor.
--- NOTE | 2017-05-04 02:15 | NUR ---
Patient resting in bed. Will continue to monitor
--- NOTE | 2017-05-04 02:30 | NUR ---
Patient resting in bed. Will continue to monitor
--- NOTE | 2017-05-04 02:45 | NUR ---
Patient resting in bed. Will continue to monitor
--- NOTE | 2017-05-04 03:00 | NUR ---
Patient resting in bed. Will continue to monitor.
--- NOTE | 2017-05-04 03:15 | NUR ---
Patient is resting in bed. Will continue to monitor.
--- NOTE | 2017-05-04 03:30 | NUR ---
Patient is resting in bed. Will continue to monitor.
--- NOTE | 2017-05-04 03:45 | NUR ---
Patient is resting in bed. Will continue to monitor.
--- NOTE | 2017-05-04 03:45 | NUR ---
Recieved report from Malcolm. Will assume care at this time. Patient sleeping quietly. Respirations even and unlabored. Vital signs within normal limits. Will continue to monitor.
--- NOTE | 2017-05-04 04:00 | NUR ---
Patient is resting in bed. Will continue to monitor.
--- NOTE | 2017-05-04 04:15 | NUR ---
Patient resting in bed. WIll continue to monitor.
--- NOTE | 2017-05-04 04:30 | NUR ---
Patient resting in bed. Will continue to monitor.
--- NOTE | 2017-05-04 04:45 | NUR ---
Patient resting in bed. Will continue to monitor.
--- NOTE | 2017-05-04 05:00 | NUR ---
Patient resting in bed. Will continue to monitor.
--- NOTE | 2017-05-04 05:15 | NUR ---
Patient resting in bed. Will continue to monitor
--- NOTE | 2017-05-04 05:45 | NUR ---
Patient continuing to sleep. Respirations even and unlabored. Displays no signs of obvious distress. Will continue to monitor.
--- NOTE | 2017-05-04 06:10 | NUR ---
Bedside sitter interchanged. New sitter updated on patient condition and status.
--- NOTE | 2017-05-04 06:28 | NUR ---
OBSERVATION NOTE : PT IS ASLEEP WILL CONTINUE TO MONITOR
--- NOTE | 2017-05-04 06:30 | NUR ---
PT IS ASLEEP WILL CONTINUE TO MONITOR
--- NOTE | 2017-05-04 06:45 | NUR ---
Danna correa in [facility] - 05/04/17 at 0723 by SDCNAMJ PT IS MUNA WILL CONTINUE TO MONITOR
--- NOTE | 2017-05-04 06:45 | NUR ---
PT IS ASLEEP WILL CONTINUE TO MONITOR
--- NOTE | 2017-05-04 07:00 | NUR ---
PT IS ASLEEP WILL CONTINUE TO MONITOR
--- NOTE | 2017-05-04 07:15 | NUR ---
PT IS IN RESTROOM
--- NOTE | 2017-05-04 07:15 | NUR ---
Report given to Daniel TORIBIO.
--- NOTE | 2017-05-04 07:30 | NUR ---
PT IS RESTLESS WALKING AROUND ASK RN FOR MEDICATION
--- NOTE | 2017-05-04 07:30 | NUR ---
Danna correa in [facility] - 05/04/17 at 0806 by SDCNAMJ PT IS OUT OF BED WALKING AROUND
--- NOTE | 2017-05-04 07:45 | NUR ---
Danna correa in [facility] - 05/04/17 at 0800 by SDCNAMJ PT IS EATING BRAK FAST
--- NOTE | 2017-05-04 07:45 | NUR ---
PT IS EATING BREAKFAST
[2017-05-04] MEDS: ATENOLOL 50 MG TABLET (TENORMIN) PO ONE (07:58)
--- NOTE | 2017-05-04 08:00 | NUR ---
PT WAS GIVEN MEDICATON NOW LAYING DOWN IN BED
[2017-05-04] MEDS: LORazepam 2 MG/ML VIAL (FOR ER USE) IVP ONE ×3 (08:03→15:01)
--- NOTE | 2017-05-04 08:06 | NUR ---
Danna correa in [facility] - 05/04/17 at 0807 by SDCNAMJ PT IS RESTLESS WALKING AROUND ASK FOR MEDICATION
--- NOTE | 2017-05-04 08:31 | NUR ---
Pt resting comfortably after being medicated. No signs of distress. Will continue to monitor.
--- NOTE | 2017-05-04 08:39 | NUR ---
Daniel is at bedside medicating pt.
[2017-05-04] MEDS: HYDROcodone/ACETAMIN 10-325 MG TAB PO ONE (08:40)
--- NOTE | 2017-05-04 08:40 | NUR ---
Pt medicated for pain level 8/10 in head and lower back. Pt tolerated well; will continue to monitor.
--- NOTE | 2017-05-04 08:45 | NUR ---
Pt went to restroom in stable condition with no noted difficulty.
--- NOTE | 2017-05-04 09:00 | NUR ---
PT IS RESTING
--- NOTE | 2017-05-04 09:15 | NUR ---
PT IS RESTING
--- NOTE | 2017-05-04 09:30 | NUR ---
PT IS RESTING
--- NOTE | 2017-05-04 09:45 | NUR ---
PT IS ASKING FOR MEDICATION COMPLAINS OF ANXIATY
--- NOTE | 2017-05-04 10:05 | NUR ---
PT WENT TO THE RESTROOM
--- NOTE | 2017-05-04 10:15 | NUR ---
PT IS RESTING WILL CONTINUE TO MONITOR
--- NOTE | 2017-05-04 10:20 | NUR ---
Pt medicated and tolerated well; will continue to monitor.
--- NOTE | 2017-05-04 10:30 | NUR ---
PT IS RESTING NO SIGNS OF DIFFCULTIES WILL CONTINUE TO MONITOR
--- NOTE | 2017-05-04 10:45 | NUR ---
PT IS RESTING
--- NOTE | 2017-05-04 11:00 | NUR ---
PT IS RESTING
--- NOTE | 2017-05-04 11:15 | NUR ---
PT IS RESTING
--- NOTE | 2017-05-04 11:20 | NUR ---
Report given to Isac TORIBIO at [place]. Accepting MD Dr. Yang. Patient will go to [facility]. Will arrange for ambulance transfer.
--- NOTE | 2017-05-04 11:30 | NUR ---
PT IS IN RESTROOM
--- NOTE | 2017-05-04 11:45 | NUR ---
PT IS RESTING
--- NOTE | 2017-05-04 12:10 | NUR ---
PT IS RESTING NO CHANGES
--- NOTE | 2017-05-04 12:30 | NUR ---
PT IS EATING LUNCH
--- NOTE | 2017-05-04 12:45 | NUR ---
PT IS EATING LUNCH
--- NOTE | 2017-05-04 13:00 | NUR ---
PT IS OUT OF BED WALKING AROUND
--- NOTE | 2017-05-04 13:30 | NUR ---
RN IS GIVING MEDICATION TO PT
[2017-05-04] MEDS: HYDROcodone/ACETAMIN 5-325 MG TAB (NORCO/ VICODIN) PO ONE (13:35)
--- NOTE | 2017-05-04 13:46 | NUR ---
PT IS OUT OF BED WALKING AROUND THE IMMEDIATE AREA
--- NOTE | 2017-05-04 14:36 | NUR ---
AT THIS TIME ABULANCE HAS ARRIVE TO TRANSPORT PT TO [facility]
[2017-05-04 15:15] VITALS: BP_SYST 134
--- NOTE | 2017-05-04 15:15 | NUR ---
Patient to be transferred to [place] under the care of Dr. Yang. Is being transferred due to higher level of care. Receiving facility has accepting physician and available space. ER physician has signed transfer form. Patient or responsible constitution party has agreed to transfer and signed form. Patient belongings inventoried and will be sent with patient. Copy of nursing notes, lab reports, EKG, Physicians Orders and X-rays to be sent with patient. Report given to HARVEY Burgos. VS stable upon discharge.
== END 2017-05-04 15:15 ==
LOC: SED 14:07
DX: R45.851 Suicidal ideations (principal); M41.9 Scoliosis, unspecified; F41.9 Anxiety disorder, unspecified; Z76.5 Malingerer [conscious simulation]; Z88.0 Allergy status to penicillin; Z88.6 Allergy status to analgesic agent; Z88.1 Allergy status to other antibiotic agents; Z88.5 Allergy status to narcotic agent; Z91.048 Other nonmedicinal substance allergy status
CPT/HCPCS: 36415; 80053; 80307; 81003; 81025; 84484; 85025; 93005; 96361; 96374; 96375; 96376; 99285; G0480; G0481; G0482; J1200 ×2; J1630 ×2; J2060 ×3; J2405; J7030; J7060

== ENCOUNTER 2017-05-11 18:33 | Emergency (ER) | payer OTHER | END 2017-05-11 19:11 | disposition left against medical advice (07) | LOC: SED 18:33 | DX: R10.9 Unspecified abdominal pain (principal); Z53.21 Procedure and treatment not carried out due to patient leaving prior to being seen by health care provider ==

== ENCOUNTER 2017-05-12 09:33 | Emergency (ER) | payer OTHER ==
[~2017-05-12] VITALS: Ht 147.3 cm; Wt 90.7 kg
[2017-05-12 09:47] VITALS: BP_SYST 118
[2017-05-12] MEDS ORDERED: MAG HYDROX/AL HYDROX/SIMETH 30 ML, BELLADONNA ALKALOIDS/PHENOBARB 10 ML, LIDOCAINE VISC... PO ONE ×3 (10:45)
[2017-05-12] MEDS ORDERED: LORazepam 1 MG TABLET PO ONE (10:45)
[2017-05-12 11:00] VITALS: BP_SYST 118
== END 2017-05-12 11:00 | disposition home or self-care (01) ==
LOC: SED 09:33
DX: F41.0 Panic disorder [episodic paroxysmal anxiety] (principal); F41.9 Anxiety disorder, unspecified; I10 Essential (primary) hypertension; F32.9 Major depressive disorder, single episode, unspecified; Z88.0 Allergy status to penicillin; Z88.6 Allergy status to analgesic agent; Z91.048 Other nonmedicinal substance allergy status; Z79.899 Other long term (current) drug therapy
CPT/HCPCS: 74018; 81025; 99283; J2001

== ENCOUNTER 2017-05-14 09:47 | Emergency (ER) | payer OTHER ==
[~2017-05-14] VITALS: Ht 147.3 cm; Wt 81.6 kg
[2017-05-14 09:47] VITALS: BP_SYST 118
--- NOTE | 2017-05-14 09:57 | NUR ---
BROUGHT BACK TO BED #5 AND TRIAGED. REPORT GIVEN TO NURSE
--- NOTE | 2017-05-14 10:08 | NUR ---
DR ROTH AT BEDSIDE FOR EVALUATION
--- NOTE | 2017-05-14 10:12 | NUR ---
PT UP TO NURSING STATION BEGGING FOR MORE MEDICATION.
--- NOTE | 2017-05-14 10:12 | NUR ---
Danna correa in ED - 05/14/[address] at [address] Poole at bedside for evaluation
[2017-05-14] MEDS ORDERED: ALPRAZolam 0.25 MG TABLET PO ONE ×2 (10:30→12:00)
--- NOTE | 2017-05-14 11:50 | NUR ---
Pt c/o anxiety, Dr. Poole notified.
--- NOTE | 2017-05-14 12:20 | NUR ---
Pt states that she feels better, requesting RX for xanax. EVAN SHARP aware.
--- NOTE | 2017-05-14 12:29 | NUR ---
Patient given written and verbal discharge instructions and verbalizes understanding. ER MD discussed with patient the results and treatment provided. Patient in stable condition. ID arm band removed. Rx of xanax 0.5mg quanity 4 given. Patient educated on pain management and to follow up with PMD. Pain Scale 0/10. Opportunity for questions provided and answered.
[2017-05-14 12:30] VITALS: BP_SYST 106
== END 2017-05-14 12:30 | disposition home or self-care (01) ==
LOC: SED 09:47
DX: K42.9 Umbilical hernia without obstruction or gangrene (principal); F41.9 Anxiety disorder, unspecified; I10 Essential (primary) hypertension; Z88.0 Allergy status to penicillin; Z88.6 Allergy status to analgesic agent; Z88.5 Allergy status to narcotic agent; Z90.49 Acquired absence of other specified parts of digestive tract
CPT/HCPCS: 99284

== ENCOUNTER 2017-05-27 11:59 | Emergency (ER) | payer MEDICAID, OTHER ==
[~2017-05-27] VITALS: Ht 147.3 cm; Wt 81.6 kg
[2017-05-27 12:00] VITALS: BP_SYST 119
--- NOTE | 2017-05-27 12:00 | NUR ---
BROUGHT IN BY [facility], PLACED IN ROOM #4 AND TRIAGED. REPORT GIVEN TO JD
--- NOTE | 2017-05-27 12:10 | NUR ---
Pt presents to ER c/o abdominal pain 11/27. Pt was at [facility] where she was denied narcotic pain meds, pt called 911 from parking lot at [facility]. Pt is in no acute distress, AOX4, respirations even and unlabored.
--- NOTE | 2017-05-27 12:12 | NUR ---
ER Dr. Poole at bedside examining patient.
[2017-05-27 12:40] VITALS: BP_SYST 110
--- NOTE | 2017-05-27 12:40 | NUR ---
Patient given written and verbal discharge instructions and verbalizes understanding. ER MD discussed with patient the results and treatment provided. Patient in stable condition. ID arm band removed. Patient educated on pain management and to follow up with PMD. Pain Scale 4/10, pt instructed to f/u with pain management Opportunity for questions provided and answered.
== END 2017-05-27 12:40 | disposition home or self-care (01) ==
LOC: SED 11:59
DX: G89.29 Other chronic pain (principal); R10.84 Generalized abdominal pain; I10 Essential (primary) hypertension; F41.9 Anxiety disorder, unspecified; M41.9 Scoliosis, unspecified; Z88.0 Allergy status to penicillin; Z88.6 Allergy status to analgesic agent; Z88.5 Allergy status to narcotic agent; Z91.048 Other nonmedicinal substance allergy status
CPT/HCPCS: 99283

== ENCOUNTER 2017-05-29 20:10 | Emergency (ER) | payer MEDICAID ==
[~2017-05-29] VITALS: Ht 149.9 cm; Wt 81.6 kg
[2017-05-29 20:21] VITALS: BP_SYST 142
[2017-05-29] MEDS ORDERED: SUMAtriptan SUCCINATE 6 MG/0.5 ML VIAL SUBCUT ONE (21:00)
[2017-05-29 21:30] LABS: BASOPHILS # (AUTO) 0.1 K/uL (0.0-0.2); BASOPHILS % (AUTO) 0.8 % (0.0-2.0); EOSINOPHILS # (AUTO) 0.1 K/uL (0.0-0.4); EOSINOPHILS % (AUTO) 1.5 % (0.0-4.0); HEMATOCRIT 33.4 % (36-48); LYMPHOCYTES # (AUTO) 1.9 K/uL (1.0-5.5); LYMPHOCYTES % (AUTO) 22.8 % (20.5-51.5); MEAN CORPUSCULAR HEMOGLOBIN 27 pg (27-31); MEAN CORPUSCULAR HGB CONC 33 % (32-36); MEAN CORPUSCULAR VOLUME 82 fL (79.0-98.0); MONOCYTES # (AUTO) 0.6 K/uL (0.0-1.0); MONOCYTES % (AUTO) 6.9 % (1.7-9.3); NEUTROPHILS # (AUTO) 5.8 K/uL (1.8-7.7); PLATELET COUNT (AUTO) 196 K/uL (130-430); RED BLOOD CELL COUNT(AUTO) 4.09 MIL/uL (4.2-6.2); RED CELL DISTRIBUTION WIDTH 14.6 % (9.0-15.0); WHITE BLOOD COUNT (AUTO) 8.5 K/uL (4.8-10.8)
[2017-05-29 21:43] LABS: ACETAMINOPHEN < 1 ug/mL (1-30)
[2017-05-29 21:47] LABS: ANION GAP 10 (5-15); CALCIUM 8.7 mg/dL (8.4-11.0); CHLORIDE 107 mmol/L (98-107); CREATININE 0.67 mg/dL (0.55-1.30); GLUCOSE 102 mg/dL (70-99); POTASSIUM 3.6 mmol/L (3.5-5.1); SODIUM SERUM 145 mmol/L (136-145); UREA NITROGEN, BLOOD 10 mg/dL (8-21)
[2017-05-29 21:48] LABS: GFR AFRICAN AMERICAN 127 mL/min (>90)
[2017-05-29 21:53] LABS: ALANINE AMINOTRANSFERASE 23 U/L (12-78); ALBUMIN 3.6 g/dL (3.4-4.8); ASPARTATE AMINOTRANSFERASE 16 U/L (10-37); TOTAL BILIRUBIN 0.1 mg/dL (0.0-1.0)
[2017-05-29 21:59] LABS: ALCOHOL, BLOOD < 3 mg/dL (<10); HCG,QUANTITATIVE 0 mIU/ML (0-6)
[2017-05-29 22:22] LABS: BILIRUBIN,URINE NEGATIVE (NEGATIVE); BLOOD, URINE NEGATIVE (NEGATIVE); CLARITY/URINE CLEAR (CLEAR); COLOR,URINE YELLOW (YELLOW); GLUCOSE,URINE NEGATIVE (NEGATIVE); KETONES,URINE NEGATIVE (NEGATIVE); LEUKOCYTE ESTERASE ,URINE NEGATIVE (NEGATIVE); NITRITE, URINE NEGATIVE (NEGATIVE); PROTEIN URINE NEGATIVE (NEGATIVE); UROBILINOGEN,URINE 0.2 (0.2-1.0)
[2017-05-29 22:30] LABS: BARBITURATE, URINE POSITIVE (NEG <=200); BENZODIAZEPINE, URINE POSITIVE (NEG <=150); COCAINE, URINE NEGATIVE (NEG <=150); METHAMPHETAMINES SCREEN,URINE NEGATIVE (NEG <=500); URINE AMPHETAMINE NEGATIVE (NEG <=500); URINE METHADONE NEGATIVE (NEG <=200)
[2017-05-29] MEDS ORDERED: HALOPERIDOL LACTATE 5 MG/ML VIAL IM ONE (22:30)
[2017-05-29] MEDS ORDERED: DIPHENHYDRAMINE INJ 50 MG/ML VIAL IM ONE (22:30)
[2017-05-29 22:31] LABS: CANNABINOID, URINE NEGATIVE (NEG <=50); OPIATE, URINE POSITIVE (NEG <=100); PHENCYCLIDINE SCREEN,URINE NEGATIVE (NEG <=25); UR TRICYCLIC ANTIDEPRESSANTS POSITIVE (NEG <=300); URINE OXYCODONE SCREEN NEGATIVE (NEG <=100); URINE PROPOXYPHENE SCREEN NEGATIVE (NEG <=300)
[2017-05-30] MEDS ORDERED: ACETAMINOPHEN 500 MG TABLET PO ONE (07:15)
[2017-05-30] MEDS ORDERED: DIPHENHYDRAMINE INJ 50 MG/ML VIAL IM ONE (08:30)
[2017-05-30] MEDS ORDERED: HALOPERIDOL LACTATE 5 MG/ML VIAL IM ONE (08:30)
[2017-05-30] MEDS ORDERED: LORazepam 2 MG/ML VIAL (FOR ER USE) IM ONE (08:45)
[2017-05-30 12:00] VITALS: BP_SYST 133
== END 2017-05-30 12:00 | disposition home or self-care (01) ==
LOC: SED 20:10
DX: T42.4X2A Poisoning by benzodiazepines, intentional self-harm, initial encounter (principal); F41.9 Anxiety disorder, unspecified; D64.9 Anemia, unspecified; G89.29 Other chronic pain; M54.9 Dorsalgia, unspecified; F11.20 Opioid dependence, uncomplicated; F13.20 Sedative, hypnotic or anxiolytic dependence, uncomplicated; E66.9 Obesity, unspecified; Z68.36 Body mass index [BMI] 36.0-36.9, adult; Z76.5 Malingerer [conscious simulation]; Z88.5 Allergy status to narcotic agent; Z88.0 Allergy status to penicillin; Z88.6 Allergy status to analgesic agent; Z91.048 Other nonmedicinal substance allergy status; Z79.899 Other long term (current) drug therapy; Y92.89 Other specified places as the place of occurrence of the external cause
CPT/HCPCS: 36415; 80053; 80307; 81003; 84702; 85025; 93005; 96372; 99285; G0480; G0481; G0482; J1200 ×2; J1630; J2060; J3030

== ENCOUNTER 2017-06-01 16:16 | Emergency (ER) | payer MEDICAID ==
[~2017-06-01] VITALS: Ht 147.3 cm; Wt 83.9 kg
[2017-06-01 16:20] VITALS: BP_SYST 161
[2017-06-01] MEDS ORDERED: DIAZEPAM 10 MG/2 ML DISP.SYRIN IM ONE (17:00)
[2017-06-01] MEDS ORDERED: ONDANSETRON 4 MG ODT TAB PO ONE (17:00)
[2017-06-01 19:10] VITALS: BP_SYST 149
== END 2017-06-01 19:10 | disposition home or self-care (01) ==
LOC: SED 16:16
DX: F41.9 Anxiety disorder, unspecified (principal); J06.9 Acute upper respiratory infection, unspecified; I10 Essential (primary) hypertension; M41.9 Scoliosis, unspecified; E66.9 Obesity, unspecified; Z68.38 Body mass index [BMI] 38.0-38.9, adult; Z90.49 Acquired absence of other specified parts of digestive tract; Z88.0 Allergy status to penicillin; Z88.5 Allergy status to narcotic agent; Z88.6 Allergy status to analgesic agent
CPT/HCPCS: 36415; 81025; 86710; 99284; J3360; Q0162

== ENCOUNTER 2017-06-03 14:43 | Emergency (ER) | payer MEDICAID ==
--- NOTE | 2017-06-03 14:43 | NUR ---
CALLED TO TRIAGE, ACCORDING TO ADMITTING, PT LEFT OUT THE FRONT DOOR. UNABLE TO LOCATE PT.
--- NOTE | 2017-06-03 14:51 | NUR ---
CALLED FOR TRIAGE, UNABLE TO LOCATE PT.
--- NOTE | 2017-06-03 15:00 | NUR ---
PT IS LWBS, NEVER TRIAGED.
== END 2017-06-03 15:00 | disposition left against medical advice (07) ==
LOC: SED 14:43
DX: M54.9 Dorsalgia, unspecified (principal); Z53.21 Procedure and treatment not carried out due to patient leaving prior to being seen by health care provider

== ENCOUNTER 2017-06-11 09:46 | Emergency (ER) | payer MEDICAID ==
[~2017-06-11] VITALS: Ht 147.3 cm; Wt 81.6 kg
[2017-06-11 09:46] VITALS: BP_SYST 150
[2017-06-11 10:21] VITALS: BP_SYST 132
== END 2017-06-11 10:21 | disposition home or self-care (01) ==
LOC: SED 09:46
DX: G89.29 Other chronic pain (principal); M54.5 Low back pain; I10 Essential (primary) hypertension; F41.9 Anxiety disorder, unspecified; M41.9 Scoliosis, unspecified; Z88.5 Allergy status to narcotic agent; Z88.6 Allergy status to analgesic agent; Z88.0 Allergy status to penicillin; Z91.048 Other nonmedicinal substance allergy status
CPT/HCPCS: 99283

== ENCOUNTER 2017-08-04 09:56 | Emergency (ER) | payer MEDICAID ==
[~2017-08-04] VITALS: Ht 147.3 cm; Wt 88.5 kg
[2017-08-04 10:03] VITALS: BP_SYST 146
[2017-08-04] MEDS ORDERED: LORazepam 1 MG TABLET PO ONE (11:00)
[2017-08-04 11:06] VITALS: BP_SYST 142
== END 2017-08-04 11:06 | disposition home or self-care (01) ==
LOC: SED 09:56
DX: F41.9 Anxiety disorder, unspecified (principal); G89.29 Other chronic pain; M54.5 Low back pain; M54.2 Cervicalgia; I10 Essential (primary) hypertension; Z88.6 Allergy status to analgesic agent; Z88.0 Allergy status to penicillin; Z88.8 Allergy status to other drugs, medicaments and biological substances
CPT/HCPCS: 99284

== ENCOUNTER 2017-08-14 14:30 | Emergency (ER) | payer MEDICAID ==
[~2017-08-14] VITALS: Ht 147.3 cm; Wt 79.4 kg
[2017-08-14 14:45] VITALS: BP_SYST 120
[2017-08-14 15:09] LABS: BILIRUBIN,URINE NEGATIVE (NEGATIVE); BLOOD, URINE NEGATIVE (NEGATIVE); CLARITY/URINE HAZY (CLEAR); COLOR,URINE YELLOW (YELLOW); GLUCOSE,URINE NEGATIVE (NEGATIVE); KETONES,URINE NEGATIVE (NEGATIVE); LEUKOCYTE ESTERASE ,URINE 1+ (NEGATIVE); NITRITE, URINE NEGATIVE (NEGATIVE); PROTEIN URINE NEGATIVE (NEGATIVE); UROBILINOGEN,URINE 0.2 (0.2-1.0)
[2017-08-14 15:16] LABS: BACTERIA,URINE MODERATE /HPF (None Seen); RBC,URINE NONE SEEN /HPF (0-3)
[2017-08-14 15:17] LABS: MUCUS,URINE None Seen /LPF (None Seen)
[2017-08-14] MEDS: PHENAZOPYRIDINE HCL 100 MG TABLET PO ONE (15:33)
[2017-08-14] MEDS: SULFAMETHOXAZOLE/TRIMETHOPR DS 1 TABLET PO ONE (15:33)
[2017-08-14 15:47] VITALS: BP_SYST 120
== END 2017-08-14 15:47 | disposition home or self-care (01) ==
LOC: SED 14:30
DX: N39.0 Urinary tract infection, site not specified (principal); I10 Essential (primary) hypertension; F41.9 Anxiety disorder, unspecified; F32.9 Major depressive disorder, single episode, unspecified; Z88.5 Allergy status to narcotic agent; Z88.0 Allergy status to penicillin; Z88.6 Allergy status to analgesic agent; Z91.048 Other nonmedicinal substance allergy status
CPT/HCPCS: 81000-TC; 87086; 99284

== ENCOUNTER 2017-08-17 11:21 | Emergency (ER) | payer MEDICAID ==
[~2017-08-17] VITALS: Ht 147.3 cm; Wt 87.1 kg
[2017-08-17 11:25] VITALS: BP_SYST 113
[2017-08-17 14:30] LABS: BASOPHILS % (AUTO) 0.4 % (0.0-2.0); EOSINOPHILS # (AUTO) 0.2 K/uL (0.0-0.4); EOSINOPHILS % (AUTO) 2.2 % (0.0-4.0); HEMATOCRIT 30.5 % (36-48); HEMOGLOBIN 9.6 g/dL (12.0-16.0); LYMPHOCYTES # (AUTO) 1.6 K/uL (1.0-5.5); LYMPHOCYTES % (AUTO) 15.3 % (20.5-51.5); MEAN CORPUSCULAR HEMOGLOBIN 25 pg (27-31); MEAN CORPUSCULAR HGB CONC 32 % (32-36); MEAN CORPUSCULAR VOLUME 78 fL (79.0-98.0); MONOCYTES # (AUTO) 0.6 K/uL (0.0-1.0); MONOCYTES % (AUTO) 5.7 % (1.7-9.3); NEUTROPHILS # (AUTO) 8.2 K/uL (1.8-7.7); NEUTROPHILS % (AUTO) 76.4 % (40.0-70.0); PLATELET COUNT (AUTO) 195 K/uL (130-430); RED BLOOD CELL COUNT(AUTO) 3.91 MIL/uL (4.2-6.2); RED CELL DISTRIBUTION WIDTH 15.9 % (9.0-15.0); WHITE BLOOD COUNT (AUTO) 10.6 K/uL (4.8-10.8)
[2017-08-17 14:35] LABS: ANION GAP 6 (5-15); CALCIUM 8.9 mg/dL (8.4-11.0); CHLORIDE 102 mmol/L (98-107); CREATININE 0.66 mg/dL (0.55-1.30); GLUCOSE 89 mg/dL (70-99); POTASSIUM 4.3 mmol/L (3.5-5.1); SODIUM SERUM 140 mmol/L (136-145); UREA NITROGEN, BLOOD 11 mg/dL (8-21)
[2017-08-17 14:41] LABS: ALANINE AMINOTRANSFERASE 19 U/L (12-78); ALBUMIN 3.8 g/dL (3.4-4.8); ASPARTATE AMINOTRANSFERASE 17 U/L (10-37); TOTAL BILIRUBIN 0.1 mg/dL (0.0-1.0)
[2017-08-17 15:07] VITALS: BP_SYST 113
[2017-08-17 15:10] LABS: ACETAMINOPHEN < 1 ug/mL (1-30); ALCOHOL, BLOOD < 3 mg/dL (<10); GFR AFRICAN AMERICAN 129 mL/min (>90)
== END 2017-08-17 15:07 | disposition home or self-care (01) ==
LOC: SED 11:21
DX: R51 Headache (principal); I10 Essential (primary) hypertension; G89.29 Other chronic pain; Z88.0 Allergy status to penicillin; Z88.6 Allergy status to analgesic agent
CPT/HCPCS: 36415; 80053; 85025; 99285; G0480; G0481; G0482

== ENCOUNTER 2017-10-16 13:54 | Emergency (ER) | payer MEDICAID ==
[~2017-10-16] VITALS: Ht 147.3 cm; Wt 90.7 kg
[2017-10-16 14:00] VITALS: BP_SYST 138
--- NOTE | 2017-10-16 14:03 | NUR ---
Patient to ER bed 05 to gown for evaluation. Side rails up.
--- NOTE | 2017-10-16 14:15 | NUR ---
ER at bedside examining patient.
[2017-10-16] MEDS ORDERED: ACETAMINOPHEN 500 MG TABLET PO ONE (14:30)
[2017-10-16 14:31] LABS: BILIRUBIN,URINE NEGATIVE (NEGATIVE); BLOOD, URINE NEGATIVE (NEGATIVE); CLARITY/URINE CLEAR (CLEAR); COLOR,URINE YELLOW (YELLOW); GLUCOSE,URINE NEGATIVE (NEGATIVE); KETONES,URINE NEGATIVE (NEGATIVE); LEUKOCYTE ESTERASE ,URINE TRACE (NEGATIVE); NITRITE, URINE NEGATIVE (NEGATIVE); PH,URINE 6.5 (5.0-8.0); PROTEIN URINE NEGATIVE (NEGATIVE); UROBILINOGEN,URINE 0.2 (0.2-1.0)
[2017-10-16 14:39] LABS: RBC,URINE 0-3 /HPF (0-3)
[2017-10-16 14:40] LABS: BACTERIA,URINE MODERATE /HPF (None Seen)
--- NOTE | 2017-10-16 14:57 | NUR ---
MEDICATED PT WITH TYLENOL EXTRA STRENGTH FOR PAIN TO HER LEGS. PT ANXIOUS AND ASKED IF SHE CAN HAVE SOME ATIVAN. INFORMED DR BRASWELL ABOUT HER COMPLAINT. NO NEW ORDERS. PT MADE AWARE.
--- NOTE | 2017-10-16 15:05 | NUR ---
Patient given written and verbal discharge instructions and verbalizes understanding. ER MD BRASWELL discussed with patient the results and treatment provided. Patient in stable condition. ID arm band removed. Rx of CIPRO, ATENOLO AND ATARAX given. Patient educated on pain management and to follow up with PMD. Pain Scale 8. Opportunity for questions provided and answered. Medication side effect fact sheet provided.
== END 2017-10-16 15:05 | disposition home or self-care (01) ==
LOC: SED 13:54
DX: N39.0 Urinary tract infection, site not specified (principal); M79.605 Pain in left leg; M79.604 Pain in right leg; F41.9 Anxiety disorder, unspecified; I10 Essential (primary) hypertension; M41.9 Scoliosis, unspecified; Z88.5 Allergy status to narcotic agent; Z88.0 Allergy status to penicillin; Z88.6 Allergy status to analgesic agent; Z91.048 Other nonmedicinal substance allergy status; Z90.49 Acquired absence of other specified parts of digestive tract
CPT/HCPCS: 81000-TC; 87086; 99284

== ENCOUNTER 2017-10-29 09:57 | Emergency (ER) | payer MEDICAID ==
[~2017-10-29] VITALS: Ht 147.3 cm; Wt 90.7 kg
[2017-10-29 10:05] VITALS: BP_SYST 125
[2017-10-29] MEDS ORDERED: CYCLOBENZAPRINE HCL 10 MG TABLET (FLEXERIL) PO ONE (10:45)
[2017-10-29] MEDS ORDERED: ACETAMINOPHEN 500 MG TABLET PO ONE (10:45)
== END 2017-10-29 10:52 | disposition home or self-care (01) ==
LOC: SED 09:57
DX: M54.5 Low back pain (principal); F32.9 Major depressive disorder, single episode, unspecified; F41.9 Anxiety disorder, unspecified; I10 Essential (primary) hypertension; Z76.5 Malingerer [conscious simulation]; Z88.6 Allergy status to analgesic agent; Z88.0 Allergy status to penicillin; Z91.048 Other nonmedicinal substance allergy status; Z79.899 Other long term (current) drug therapy
CPT/HCPCS: 99281

== ENCOUNTER 2017-10-31 12:57 | Emergency (ER) | payer MEDICAID ==
[~2017-10-31] VITALS: Ht 147.3 cm; Wt 90.7 kg
[2017-10-31 13:07] VITALS: BP_SYST 138
[2017-10-31] MEDS ORDERED: DIPHENHYDRAMINE INJ 50 MG/ML VIAL IM ONE (13:15)
[2017-10-31 13:24] VITALS: BP_SYST 138
== END 2017-10-31 13:24 | disposition home or self-care (01) ==
LOC: SED 12:57
DX: G43.909 Migraine, unspecified, not intractable, without status migrainosus (principal); F32.9 Major depressive disorder, single episode, unspecified; F41.9 Anxiety disorder, unspecified; I10 Essential (primary) hypertension; Z76.5 Malingerer [conscious simulation]; Z88.6 Allergy status to analgesic agent; Z88.0 Allergy status to penicillin; Z91.048 Other nonmedicinal substance allergy status; Z79.899 Other long term (current) drug therapy
CPT/HCPCS: 96372; 99283; J1200

== ENCOUNTER 2017-12-21 10:20 | Emergency (ER) | payer MEDICAID ==
[~2017-12-21] VITALS: Ht 147.3 cm; Wt 68.0 kg
[2017-12-21 10:25] VITALS: BP_SYST 180
[2017-12-21] MEDS ORDERED: NACL 0.9% 1,000 ML IV ONE (10:36)
[2017-12-21] MEDS ORDERED: MORPHINE 4 MG/ML INJ. SYRINGE IVP ONE (11:15)
[2017-12-21] MEDS ORDERED: ONDANSETRON HCL 4 MG/2 ML VIAL IVP ONE (11:15)
[2017-12-21 11:38] LABS: BASOPHILS # (AUTO) 0.1 K/uL (0.0-0.2); BASOPHILS % (AUTO) 0.8 % (0.0-2.0); EOSINOPHILS # (AUTO) 0.2 K/uL (0.0-0.4); EOSINOPHILS % (AUTO) 2.1 % (0.0-4.0); HEMATOCRIT 37.7 % (36-48); LYMPHOCYTES # (AUTO) 1.4 K/uL (1.0-5.5); LYMPHOCYTES % (AUTO) 17.3 % (20.5-51.5); MEAN CORPUSCULAR HEMOGLOBIN 25 pg (27-31); MEAN CORPUSCULAR HGB CONC 32 % (32-36); MEAN CORPUSCULAR VOLUME 79 fL (79.0-98.0); MONOCYTES # (AUTO) 0.6 K/uL (0.0-1.0); MONOCYTES % (AUTO) 6.8 % (1.7-9.3); NEUTROPHILS # (AUTO) 5.8 K/uL (1.8-7.7); PLATELET COUNT (AUTO) 235 K/uL (130-430); RED BLOOD CELL COUNT(AUTO) 4.77 MIL/uL (4.2-6.2); WHITE BLOOD COUNT (AUTO) 8.1 K/uL (4.8-10.8)
[2017-12-21 11:51] LABS: CALCIUM 9.1 mg/dL (8.4-11.0); CREATININE 0.67 mg/dL (0.55-1.30); POTASSIUM 3.8 mmol/L (3.5-5.1)
[2017-12-21 11:55] LABS: ALBUMIN 4.2 g/dL (3.4-4.8); TOTAL BILIRUBIN 0.2 mg/dL (0.0-1.0)
[2017-12-21] MEDS ORDERED: LORazepam 2 MG/ML VIAL (FOR ER USE) IVP ONE (12:30)
[2017-12-21 13:12] LABS: BILIRUBIN,URINE NEGATIVE (NEGATIVE); BLOOD, URINE 3+ (NEGATIVE); CLARITY/URINE HAZY (CLEAR); COLOR,URINE RED (YELLOW); GLUCOSE,URINE NEGATIVE (NEGATIVE); KETONES,URINE NEGATIVE (NEGATIVE); LEUKOCYTE ESTERASE ,URINE 1+ (NEGATIVE); NITRITE, URINE NEGATIVE (NEGATIVE); PROTEIN URINE 2+ (NEGATIVE); UROBILINOGEN,URINE 0.2 (0.2-1.0)
[2017-12-21 13:49] VITALS: BP_SYST 164
[2017-12-21 13:56] LABS: BACTERIA,URINE MODERATE /HPF (None Seen)
[2017-12-21 13:57] LABS: MUCUS,URINE 1+ /LPF (None Seen)
== END 2017-12-21 13:49 | disposition home or self-care (01) ==
LOC: SED 10:20
DX: G89.29 Other chronic pain (principal); R10.30 Lower abdominal pain, unspecified; F41.9 Anxiety disorder, unspecified; I10 Essential (primary) hypertension; F32.9 Major depressive disorder, single episode, unspecified; Z76.5 Malingerer [conscious simulation]; Z88.6 Allergy status to analgesic agent; Z88.0 Allergy status to penicillin; Z91.048 Other nonmedicinal substance allergy status; Z88.5 Allergy status to narcotic agent; Z79.899 Other long term (current) drug therapy
CPT/HCPCS: 36415; 80053; 81000; 81025; 82150; 83690; 85025; 87086; 96374; 96375; 99284; J2060; J2270; J2405; J7030

== ENCOUNTER 2018-04-15 11:51 | Emergency (ER) | payer MEDICAID ==
--- NOTE | 2018-04-15 11:52 | NUR ---
Patient to ER bed 04 to gown for evaluation. Side rails up.
--- NOTE | 2018-04-15 11:53 | NUR ---
Pt brought by self, A&Ox4, pt presents to ER with abdominal pain and anxiety, Hx of hernia , VS WNL, respirations even and unlabored, cap refill <3.
[2018-04-15 11:57] VITALS: BP_SYST 122
--- NOTE | 2018-04-15 12:25 | NUR ---
Dr Matthews at bedside examining patient
[2018-04-15] MEDS ORDERED: LORazepam 1 MG TABLET PO ONE (12:30)
--- NOTE | 2018-04-15 13:04 | NUR ---
PT'S FATHER IN LAW HERE TO TAKE PT HOME. ATIVAN 2 MG TABLETS GIVEN ORDERED.
--- NOTE | 2018-04-15 13:06 | NUR ---
Patient given written and verbal discharge instructions and verbalizes understanding. ER MD PETERSON discussed with patient the results and treatment provided. Patient in stable condition. ID arm band removed. Rx of ATIVAN AND CELEBREX given. Patient educated on pain management and to follow up with PMD. Pain Scale 4. Opportunity for questions provided and answered. Medication side effect fact sheet provided.
== END 2018-04-15 13:06 | disposition home or self-care (01) ==
LOC: SED 11:51
DX: F41.9 Anxiety disorder, unspecified (principal); I10 Essential (primary) hypertension; Z88.0 Allergy status to penicillin; Z88.6 Allergy status to analgesic agent; Z91.048 Other nonmedicinal substance allergy status
CPT/HCPCS: 99283

== ENCOUNTER 2018-04-28 14:30 | Emergency (ER) | payer MEDICAID ==
[~2018-04-28] VITALS: Ht 147.3 cm; Wt 91.2 kg
--- NOTE | 2018-04-28 14:40 | NUR ---
Patient to ER bed 08 to gown for evaluation. Side rails up.
--- NOTE | 2018-04-28 14:42 | NUR ---
Pt brought by self, A&Ox4, anxious, pt presents to ER with abdominal pain, states she has a chronic hernia, afebrile, skin pink and warm, cap refill <3, VS WNL,denies N/V/D.
[2018-04-28 14:44] VITALS: BP_SYST 161
--- NOTE | 2018-04-28 14:54 | NUR ---
Dr Kelly at bedside examining patient
--- NOTE | 2018-04-28 15:00 | NUR ---
Pt medicated as ordered, well tolerated.
[2018-04-28] MEDS: LORazepam 1 MG TABLET PO ONE (15:11)
[2018-04-28] MEDS: ONDANSETRON 4 MG ODT TAB PO ONE (15:22)
--- NOTE | 2018-04-28 15:37 | NUR ---
Patient given written and verbal discharge instructions and verbalizes understanding. ER MD discussed with patient the results and treatment provided. Patient in stable condition. ID arm band removed. Rx of Atenolol 50mg given. Patient educated on pain management and to follow up with PMD. Pain Scale Opportunity for questions provided and answered. Medication side effect fact sheet provided.
== END 2018-04-28 15:37 | disposition home or self-care (01) ==
LOC: SED 14:30
DX: K42.9 Umbilical hernia without obstruction or gangrene (principal); G89.29 Other chronic pain; F11.20 Opioid dependence, uncomplicated; F41.9 Anxiety disorder, unspecified; I10 Essential (primary) hypertension; F32.9 Major depressive disorder, single episode, unspecified; Z88.0 Allergy status to penicillin; Z88.6 Allergy status to analgesic agent; Z91.048 Other nonmedicinal substance allergy status
CPT/HCPCS: 99283; Q0162

== ENCOUNTER 2018-05-13 11:23 | Emergency (ER) | payer MEDICAID ==
[~2018-05-13] VITALS: Ht 149.9 cm; Wt 90.7 kg
[2018-05-13 11:28] VITALS: BP_SYST 139
[2018-05-13] MEDS ORDERED: DIPHENHYDRAMINE INJ 50 MG/ML VIAL IM ONE (13:00)
== END 2018-05-13 13:10 | disposition left against medical advice (07) ==
LOC: SED 11:23
DX: F41.9 Anxiety disorder, unspecified (principal); I10 Essential (primary) hypertension; F32.9 Major depressive disorder, single episode, unspecified; Z88.0 Allergy status to penicillin; Z88.6 Allergy status to analgesic agent; Z91.048 Other nonmedicinal substance allergy status; Z79.899 Other long term (current) drug therapy
CPT/HCPCS: 99281

== ENCOUNTER 2018-05-18 11:34 | Emergency (ER) | payer MEDICAID ==
[~2018-05-18] VITALS: Ht 157.5 cm; Wt 99.8 kg
[2018-05-18 11:40] VITALS: BP_SYST 118
[2018-05-18] MEDS ORDERED: DIPHENHYDRAMINE INJ 50 MG/ML VIAL IM ONE (12:00)
[2018-05-18 12:36] VITALS: BP_SYST 126
== END 2018-05-18 12:36 | disposition home or self-care (01) ==
LOC: SED 11:34
DX: F41.9 Anxiety disorder, unspecified (principal); R19.7 Diarrhea, unspecified; R63.0 Anorexia; I10 Essential (primary) hypertension; F32.9 Major depressive disorder, single episode, unspecified; Z88.0 Allergy status to penicillin; Z88.6 Allergy status to analgesic agent; Z91.048 Other nonmedicinal substance allergy status; Z79.899 Other long term (current) drug therapy
CPT/HCPCS: 99283

== ENCOUNTER 2018-05-23 23:34 | Emergency (ER) | payer MEDICAID ==
[~2018-05-23] VITALS: Ht 147.3 cm; Wt 89.8 kg
[2018-05-23 23:53] VITALS: BP_SYST 122
[2018-05-24] MEDS ORDERED: MORPHINE SULFATE 10 MG/ML VIAL IM ONE ×2 (01:00→03:15)
[2018-05-24] MEDS ORDERED: LORazepam 1 MG TABLET PO ONE (01:00)
[2018-05-24] MEDS ORDERED: DIPHENHYDRAMINE INJ 50 MG/ML VIAL IM ONE ×2 (01:00→03:15)
[2018-05-24] MEDS ORDERED: PANTOPRAZOLE SODIUM 40 MG TAB PO ONE (01:00)
[2018-05-24 01:01] LABS: BILIRUBIN,URINE NEGATIVE (NEGATIVE); BLOOD, URINE NEGATIVE (NEGATIVE); CLARITY/URINE SL HAZY (CLEAR); COLOR,URINE YELLOW (YELLOW); GLUCOSE,URINE NEGATIVE (NEGATIVE); KETONES,URINE NEGATIVE (NEGATIVE); LEUKOCYTE ESTERASE ,URINE 2+ (NEGATIVE); NITRITE, URINE NEGATIVE (NEGATIVE); PROTEIN URINE NEGATIVE (NEGATIVE); UROBILINOGEN,URINE 0.2 (0.2-1.0)
[2018-05-24 01:15] LABS: BACTERIA,URINE MODERATE /HPF (None Seen); MUCUS,URINE 1+ /LPF (None Seen); RBC,URINE 0-3 /HPF (0-3); WBC,URINE 20-50 /HPF (0-3)
[2018-05-24] MEDS ORDERED: ONDANSETRON 4 MG ODT TAB PO ONE ×2 (01:30→03:15)
[2018-05-24 01:49] LABS: CALCIUM 9.2 mg/dL (8.4-11.0); CREATININE 0.59 mg/dL (0.55-1.30)
[2018-05-24 01:55] LABS: ALBUMIN 3.9 g/dL (3.4-4.8); TOTAL BILIRUBIN 0.3 mg/dL (0.0-1.0)
[2018-05-24 01:56] LABS: POTASSIUM 2.8 mmol/L (3.5-5.1)
[2018-05-24 01:58] LABS: BASOPHILS % (AUTO) 0.2 % (0.0-2.0); EOSINOPHILS # (AUTO) 0.1 K/uL (0.0-0.4); EOSINOPHILS % (AUTO) 0.6 % (0.0-4.0); HEMATOCRIT 37.1 % (36-48); HEMOGLOBIN 11.5 g/dL (12.0-16.0); LYMPHOCYTES # (AUTO) 2.2 K/uL (1.0-5.5); LYMPHOCYTES % (AUTO) 14.3 % (20.5-51.5); MEAN CORPUSCULAR HEMOGLOBIN 24 pg (27-31); MEAN CORPUSCULAR HGB CONC 31 % (32-36); MEAN CORPUSCULAR VOLUME 78 fL (79.0-98.0); MONOCYTES # (AUTO) 0.8 K/uL (0.0-1.0); MONOCYTES % (AUTO) 5.2 % (1.7-9.3); NEUTROPHILS # (AUTO) 12.3 K/uL (1.8-7.7); NEUTROPHILS % (AUTO) 79.7 % (40.0-70.0); PLATELET COUNT (AUTO) 308 K/uL (130-430); RED BLOOD CELL COUNT(AUTO) 4.77 MIL/uL (4.2-6.2); RED CELL DISTRIBUTION WIDTH 15.2 % (9.0-15.0); WHITE BLOOD COUNT (AUTO) 15.4 K/uL (4.8-10.8)
[2018-05-24] MEDS ORDERED: POTASSIUM CHLORIDE 20 MEQ TAB.PRT.SR PO ONE (02:15)
[2018-05-24 04:22] VITALS: BP_SYST 117
== END 2018-05-24 04:22 | disposition home or self-care (01) ==
LOC: SED 23:34
DX: R10.13 Epigastric pain (principal); R11.10 Vomiting, unspecified; R19.7 Diarrhea, unspecified; I10 Essential (primary) hypertension; Z88.0 Allergy status to penicillin; Z88.6 Allergy status to analgesic agent; Z91.048 Other nonmedicinal substance allergy status; Z79.899 Other long term (current) drug therapy
CPT/HCPCS: 36415; 80053; 81000; 83690; 85025; 87086; 96372; 99284; J1200; J2270; Q0162

== ENCOUNTER 2018-06-27 03:08 | Emergency (ER) | payer MEDICAID ==
[~2018-06-27] VITALS: Ht 147.3 cm; Wt 72.6 kg
[2018-06-27 03:30] VITALS: BP_SYST 135
[2018-06-27] MEDS ORDERED: NACL 0.9% 1,000 ML IV ONE (05:02)
[2018-06-27 05:10] LABS: BILIRUBIN,URINE NEGATIVE (NEGATIVE); BLOOD, URINE NEGATIVE (NEGATIVE); CLARITY/URINE CLEAR (CLEAR); COLOR,URINE YELLOW (YELLOW); GLUCOSE,URINE NEGATIVE (NEGATIVE); KETONES,URINE NEGATIVE (NEGATIVE); LEUKOCYTE ESTERASE ,URINE NEGATIVE (NEGATIVE); NITRITE, URINE NEGATIVE (NEGATIVE); PROTEIN URINE NEGATIVE (NEGATIVE); UROBILINOGEN,URINE 0.2 (0.2-1.0)
[2018-06-27] MEDS ORDERED: clonazePAM 0.5 MG TABLET PO ONE (05:15)
[2018-06-27] MEDS ORDERED: MORPHINE SULFATE 10 MG/ML VIAL IVP ONE (05:15)
[2018-06-27 07:11] VITALS: BP_SYST 135
== END 2018-06-27 07:11 | disposition home or self-care (01) ==
LOC: SED 03:08
DX: M54.5 Low back pain (principal); R10.9 Unspecified abdominal pain; I10 Essential (primary) hypertension; Z88.0 Allergy status to penicillin; Z88.6 Allergy status to analgesic agent; Z91.048 Other nonmedicinal substance allergy status; Z79.899 Other long term (current) drug therapy
CPT/HCPCS: 81003; 96372; 99283; J2270

== ENCOUNTER 2018-08-13 17:38 | Emergency (ER) | payer MEDICAID ==
[~2018-08-13] VITALS: Ht 147.3 cm; Wt 90.7 kg
[2018-08-13 18:00] VITALS: BP_SYST 128
[2018-08-13] MEDS ORDERED: DIPHENOXYLATE HCL/ATROP SULF 2.5 MG TAB PO ONE (18:30)
[2018-08-13 18:38] VITALS: BP_SYST 128
== END 2018-08-13 18:38 | disposition home or self-care (01) ==
LOC: SED 17:38
DX: R19.7 Diarrhea, unspecified (principal); I10 Essential (primary) hypertension; F32.9 Major depressive disorder, single episode, unspecified; F41.9 Anxiety disorder, unspecified; Z88.0 Allergy status to penicillin; Z88.6 Allergy status to analgesic agent; Z91.048 Other nonmedicinal substance allergy status; Z79.899 Other long term (current) drug therapy
CPT/HCPCS: 82962; 99283

== ENCOUNTER 2018-09-03 11:46 | Emergency (ER) | payer MEDICAID ==
[~2018-09-03] VITALS: Ht 147.3 cm; Wt 90.7 kg
[2018-09-03 11:46] VITALS: BP_SYST 115
[2018-09-03] MEDS ORDERED: clonazePAM 0.5 MG TABLET PO ONE (12:30)
[2018-09-03 13:19] VITALS: BP_SYST 115
== END 2018-09-03 13:19 | disposition home or self-care (01) ==
LOC: SED 11:46
DX: F41.9 Anxiety disorder, unspecified (principal); F32.9 Major depressive disorder, single episode, unspecified; I10 Essential (primary) hypertension; Z88.0 Allergy status to penicillin; Z88.6 Allergy status to analgesic agent; Z91.048 Other nonmedicinal substance allergy status; Z79.899 Other long term (current) drug therapy
CPT/HCPCS: 99284

== ENCOUNTER 2018-09-15 10:38 | Emergency (ER) | payer MEDICAID ==
[~2018-09-15] VITALS: Ht 147.3 cm; Wt 90.7 kg
[2018-09-15 10:38] VITALS: BP_SYST 157
--- NOTE | 2018-09-15 10:38 | NUR ---
BROUGHT BACK TO BED #4 AND TRIAGED. REPORT GIVEN TO GRACIELA
--- NOTE | 2018-09-15 10:50 | NUR ---
ER Dr. PETERSON at bedside examining patient.
[2018-09-15] MEDS ORDERED: NACL 0.9% 1,000 ML IV ONE (11:00)
--- NOTE | 2018-09-15 11:00 | NUR ---
PATIENT SITTING UP ON BED. AAOx4. RESPIRATIONS EVEN AND UNABORED. NO SOB. DENIES OF ANY CHEST PAIN, HEADACHE, DIZZINESS, NAUSEA, OR VOMITING. NO NUMBNESS OR TINGLING. PT WITH C/O LOW MID BACK PAIN AND DIARRHEA x1 MONTH. PT DENIES OF ANY FALL, TRAUMA, OR HEAVY LIFTING. LOW BACK PAIN WORSENS UPON MOVEMENT. NO OBJECTIVE S/SX OF PAIN OBSERVED. REST AND RELAXATION ENCOURAGED. MD ORDERS NOTED AND TO BE CARRIED OUT.
--- NOTE | 2018-09-15 11:33 | NUR ---
IVF OF NS 1000ML STARTED PER MD ORDERS. TOLERATING WELL. PLEASE SEE EMAR FOR DETAILS.
[2018-09-15 11:42] LABS: BASOPHILS # (AUTO) 0.1 K/uL (0.0-0.2); BASOPHILS % (AUTO) 0.9 % (0.0-2.0); EOSINOPHILS # (AUTO) 0.1 K/uL (0.0-0.4); HEMATOCRIT 34.1 % (36-48); HEMOGLOBIN 10.4 g/dL (12.0-16.0); LYMPHOCYTES # (AUTO) 1.5 K/uL (1.0-5.5); LYMPHOCYTES % (AUTO) 15.2 % (20.5-51.5); MEAN CORPUSCULAR HEMOGLOBIN 22 pg (27-31); MEAN CORPUSCULAR HGB CONC 30 % (32-36); MONOCYTES # (AUTO) 0.7 K/uL (0.0-1.0); MONOCYTES % (AUTO) 6.7 % (1.7-9.3); NEUTROPHILS # (AUTO) 7.5 K/uL (1.8-7.7); NEUTROPHILS % (AUTO) 76.2 % (40.0-70.0); PLATELET COUNT (AUTO) 247 K/uL (130-430); RED CELL DISTRIBUTION WIDTH 17.2 % (9.0-15.0); WHITE BLOOD COUNT (AUTO) 9.9 K/uL (4.8-10.8)
[2018-09-15 11:53] LABS: CALCIUM 8.8 mg/dL (8.4-11.0); CREATININE 0.65 mg/dL (0.55-1.30); MEAN CORPUSCULAR VOLUME 71 fL (79.0-98.0); POTASSIUM 3.9 mmol/L (3.5-5.1)
[2018-09-15 11:56] LABS: BARBITURATE, URINE NEGATIVE (NEG <=200); BENZODIAZEPINE, URINE NEGATIVE (NEG <=150); CANNABINOID, URINE NEGATIVE (NEG <=50); COCAINE, URINE NEGATIVE (NEG <=150); METHAMPHETAMINES SCREEN,URINE NEGATIVE (NEG <=500); OPIATE, URINE NEGATIVE (NEG <=100); PHENCYCLIDINE SCREEN,URINE NEGATIVE (NEG <=25); UR TRICYCLIC ANTIDEPRESSANTS NEGATIVE (NEG <=300); URINE AMPHETAMINE NEGATIVE (NEG <=500); URINE METHADONE NEGATIVE (NEG <=200); URINE OXYCODONE SCREEN NEGATIVE (NEG <=100); URINE PROPOXYPHENE SCREEN NEGATIVE (NEG <=300)
[2018-09-15 11:59] LABS: ALBUMIN 3.7 g/dL (3.4-4.8); TOTAL BILIRUBIN 0.2 mg/dL (0.0-1.0)
--- NOTE | 2018-09-15 12:05 | NUR ---
Patient resting quietly. No acute distress noted. Vital signs within normal range.
--- NOTE | 2018-09-15 13:00 | NUR ---
RPatient resting quietly. No acute distress noted.
[2018-09-15] MEDS ORDERED: CARISOPRODOL 350 MG TABLET PO ONE (13:30)
--- NOTE | 2018-09-15 13:33 | NUR ---
PT STILL WITH C/O LOW BACK PAIN = 09/27. NO OBJECTIVE S/SX OF PAIN OBSERVED. REST AND RELAXATION ENCOURAGED. SOMA ADMINISTERED PER MD ORDERS. TOLERATED WELL. PLEASE SEE EMAR FOR DETAILS.
[2018-09-15 14:00] VITALS: BP_SYST 141
--- NOTE | 2018-09-15 14:00 | NUR ---
Patient given written and verbal discharge instructions and verbalizes understanding. ER MD discussed with patient the results and treatment provided. Patient in stable condition. ID arm band removed. IV catheter removed intact and dressing applied, no active bleeding. Rx of SOMA given. Patient educated on pain management and to follow up with PMD. Pain Scale 4/10; TOLERABLE VERBALIZED. NO OBJECTIVE S/SX OF PAIN OBSERVED. Opportunity for questions provided and answered. Medication side effect fact sheet provided. PATIENT IN GOOD CONDITION AND IN NO ACUTE DISTRESS. PATIENT VERBALIZED RELIEF FROM ABDOMINAL PAIN AND GOOD RELIEF FROM BACK PAIN. PAIN = 4/10; TOLERABLE VERBALIZED.
== END 2018-09-15 14:00 | disposition home or self-care (01) ==
LOC: SED 10:38
DX: M54.5 Low back pain (principal); R25.2 Cramp and spasm; I10 Essential (primary) hypertension; F41.9 Anxiety disorder, unspecified; Z79.899 Other long term (current) drug therapy; Z88.0 Allergy status to penicillin; Z88.6 Allergy status to analgesic agent; Z88.8 Allergy status to other drugs, medicaments and biological substances
CPT/HCPCS: 36415; 74021; 80053; 80307; 82272; 85025; 87045; 87046 ×2; 89055; 99284; J7030

== ENCOUNTER 2018-09-17 13:23 | Emergency (ER) | payer MEDICAID ==
[~2018-09-17] VITALS: Ht 147.3 cm; Wt 90.7 kg
[2018-09-17 13:23] VITALS: BP_SYST 116
[2018-09-17 13:57] VITALS: BP_SYST 116
== END 2018-09-17 13:57 | disposition home or self-care (01) ==
LOC: SED 13:23
DX: R19.7 Diarrhea, unspecified (principal); I10 Essential (primary) hypertension; F32.9 Major depressive disorder, single episode, unspecified; F41.9 Anxiety disorder, unspecified; Z88.0 Allergy status to penicillin; Z88.6 Allergy status to analgesic agent; Z91.048 Other nonmedicinal substance allergy status; Z79.899 Other long term (current) drug therapy
CPT/HCPCS: 99281

== ENCOUNTER 2018-09-18 13:26 | Emergency (ER) | payer MEDICAID ==
[~2018-09-18] VITALS: Ht 147.3 cm; Wt 91.6 kg
[2018-09-18] MEDS ORDERED: NACL 0.9% 1,000 ML IV ONE ×2 (13:29→13:45)
[2018-09-18 13:41] VITALS: BP_SYST 141
--- NOTE | 2018-09-18 13:45 | NUR ---
Patient to ER bed 8 to gown for evaluation. Side rails up. Report given to Christina TORIBIO.
--- NOTE | 2018-09-18 13:50 | NUR ---
ER Dr. Pang at bedside examining patient.
[2018-09-18] MEDS ORDERED: MORPHINE 4 MG/ML INJ. SYRINGE IVP ONE ×2 (14:00→15:15)
[2018-09-18 14:36] LABS: BILIRUBIN,URINE NEGATIVE (NEGATIVE); BLOOD, URINE NEGATIVE (NEGATIVE); CLARITY/URINE CLEAR (CLEAR); COLOR,URINE YELLOW (YELLOW); GLUCOSE,URINE NEGATIVE (NEGATIVE); KETONES,URINE NEGATIVE (NEGATIVE); LEUKOCYTE ESTERASE ,URINE NEGATIVE (NEGATIVE); NITRITE, URINE NEGATIVE (NEGATIVE); PROTEIN URINE 1+ (NEGATIVE); UROBILINOGEN,URINE 0.2 (0.2-1.0)
[2018-09-18 14:40] LABS: BASOPHILS # (AUTO) 0.1 K/uL (0.0-0.2); BASOPHILS % (AUTO) 0.6 % (0.0-2.0); EOSINOPHILS % (AUTO) 0.5 % (0.0-4.0); HEMATOCRIT 33.9 % (36-48); HEMOGLOBIN 10.4 g/dL (12.0-16.0); LYMPHOCYTES # (AUTO) 1.6 K/uL (1.0-5.5); LYMPHOCYTES % (AUTO) 15.6 % (20.5-51.5); MEAN CORPUSCULAR HEMOGLOBIN 22 pg (27-31); MEAN CORPUSCULAR HGB CONC 31 % (32-36); MEAN CORPUSCULAR VOLUME 71 fL (79.0-98.0); MONOCYTES # (AUTO) 0.6 K/uL (0.0-1.0); MONOCYTES % (AUTO) 5.9 % (1.7-9.3); NEUTROPHILS # (AUTO) 7.8 K/uL (1.8-7.7); NEUTROPHILS % (AUTO) 77.4 % (40.0-70.0); PLATELET COUNT (AUTO) 267 K/uL (130-430); RED BLOOD CELL COUNT(AUTO) 4.78 MIL/uL (4.2-6.2); RED CELL DISTRIBUTION WIDTH 17.4 % (9.0-15.0)
[2018-09-18 14:44] LABS: CALCIUM 8.8 mg/dL (8.4-11.0); CREATININE 0.61 mg/dL (0.55-1.30); POTASSIUM 3.6 mmol/L (3.5-5.1)
[2018-09-18 14:45] LABS: RBC,URINE NONE SEEN /HPF (0-3); WBC,URINE 0-3 /HPF (0-3)
[2018-09-18 14:46] LABS: BACTERIA,URINE MODERATE /HPF (None Seen); MUCUS,URINE 3+ /LPF (None Seen)
[2018-09-18 14:48] LABS: ALBUMIN 4.1 g/dL (3.4-4.8); TOTAL BILIRUBIN 0.3 mg/dL (0.0-1.0)
--- NOTE | 2018-09-18 15:45 | NUR ---
After signing discharge orders and removal of IV and armband, patient states " I have a fast heart, can you check it". I placed a new pulse-ox sensor and monitored vs on testing specialist, heart rate 66. I assisted patient to wheel chair, patient continued to complain of high heart rate, verified heart rate again by palpatation. Heart rate 63. Patient states I dont want to leave, I made Dr. Pang aware.
--- NOTE | 2018-09-18 15:50 | NUR ---
Educate patient on discharge orders. Patient continued to ask not to be sent home. Made Jered Andrew RN aware and aske dfor assistance with patient.
--- NOTE | 2018-09-18 15:53 | NUR ---
Patient was ready to be discharged and developing burning lower chest pain. Dr. Pang aware. New orders for EKG. Patient is now crying. States that she is really concerned because she is afraid to go [place] eand have diarrhea, despite not having diarrhea during her visit to the ER and having a prescription for Loperamide at home.
[2018-09-18 16:34] VITALS: BP_SYST 135
--- NOTE | 2018-09-18 16:34 | NUR ---
Patient given written and verbal discharge instructions and verbalizes understanding. ER MD discussed with patient the results and treatment provided. Patient in stable condition. ID arm band removed. Patient educated on combining perscription medications and speciafically narcotics with xanax. Patient states she understands.Patient appropriate and folowing instructions, able to verbalized instructions. Rx of Xanax & lopermide given. Patient educated on pain management and to follow up with PMD. Pain Scale 0/10. Opportunity for questions provided and answered. Medication side effect fact sheet provided.
== END 2018-09-18 16:34 | disposition home or self-care (01) ==
LOC: SED 13:26
DX: G89.29 Other chronic pain (principal); F41.9 Anxiety disorder, unspecified; R19.7 Diarrhea, unspecified; I10 Essential (primary) hypertension; F32.9 Major depressive disorder, single episode, unspecified; Z90.49 Acquired absence of other specified parts of digestive tract; Z88.0 Allergy status to penicillin; Z88.6 Allergy status to analgesic agent; Z91.048 Other nonmedicinal substance allergy status; Z79.899 Other long term (current) drug therapy
CPT/HCPCS: 36415; 80053; 81000; 83605; 83690; 84484; 85025; 87040; 93005; 96374; 99284; J2270

== ENCOUNTER 2018-09-29 13:03 | Emergency (ER) | payer MEDICAID ==
[~2018-09-29] VITALS: Ht 147.3 cm; Wt 93.0 kg
[2018-09-29 13:08] VITALS: BP_SYST 124
--- NOTE | 2018-09-29 13:15 | NUR ---
Placed in room 05 . Placed on electronic device monitor, blood pressure machine and pulse oximeter. To gown for exam. Side rails up. Report given to Christina TORIBIO.
--- NOTE | 2018-09-29 13:20 | NUR ---
Patient presented to ER with c/o epigastric pain and anxiety. Patient alert and oriented x4, ambulatory to ER, afebrile, skin pink, pain 8/10, denies N/V/D. Patient arrived to ER with 6 year old son c/o anxiety x2 days, and epigastric started today.
--- NOTE | 2018-09-29 13:20 | NUR ---
EKG done at bedside
--- NOTE | 2018-09-29 13:29 | NUR ---
EVAN ROSARIO examining patient.
[2018-09-29] MEDS ORDERED: ALPRAZolam 0.25 MG TABLET PO ONE (13:30)
[2018-09-29] MEDS ORDERED: MAG HYDROX/AL HYDROX/SIMETH 30 ML, LIDOCAINE VISCOUS 2% 15ML (PO) 10 ML, DICYCLOMINE HC... PO ONE ×3 (13:45)
[2018-09-29 14:05] VITALS: BP_SYST 124
--- NOTE | 2018-09-29 14:07 | NUR ---
Patient given written and verbal discharge instructions and verbalizes understanding. ER MD discussed with patient the results and treatment provided. Patient in stable condition. ID arm band removed. Rx of OMEPROZOLE AND SOMA given. Patient educated on pain management and to follow up with PMD. Pain Scale 2/10 TOLERABLE. Opportunity for questions provided and answered. Medication side effect fact sheet provided.
== END 2018-09-29 14:07 | disposition home or self-care (01) ==
LOC: SED 13:03
DX: F41.9 Anxiety disorder, unspecified (principal); G89.29 Other chronic pain; R10.13 Epigastric pain; M54.9 Dorsalgia, unspecified; I10 Essential (primary) hypertension; F32.9 Major depressive disorder, single episode, unspecified; Z79.899 Other long term (current) drug therapy; Z88.0 Allergy status to penicillin; Z88.6 Allergy status to analgesic agent; Z88.8 Allergy status to other drugs, medicaments and biological substances; Z91.048 Other nonmedicinal substance allergy status
CPT/HCPCS: 81025; 99283; J2001

== ENCOUNTER 2018-10-02 11:13 | Emergency (ER) | payer MEDICAID ==
[~2018-10-02] VITALS: Ht 147.3 cm; Wt 93.0 kg
[2018-10-02 11:19] VITALS: BP_SYST 128
[2018-10-02] MEDS ORDERED: LORazepam 2 MG/ML VIAL (FOR ER USE) IM ONE (11:30)
[2018-10-02 11:52] VITALS: BP_SYST 128
== END 2018-10-02 11:53 | disposition home or self-care (01) ==
LOC: SED 11:13
DX: F41.9 Anxiety disorder, unspecified (principal); G89.29 Other chronic pain; M54.9 Dorsalgia, unspecified; I10 Essential (primary) hypertension; Z76.5 Malingerer [conscious simulation]; Z88.0 Allergy status to penicillin; Z88.6 Allergy status to analgesic agent; Z91.048 Other nonmedicinal substance allergy status; Z79.899 Other long term (current) drug therapy
CPT/HCPCS: 96372; 99284; J2060

== ENCOUNTER 2018-10-10 20:51 | Emergency (ER) | payer MEDICAID ==
[~2018-10-10] VITALS: Ht 172.7 cm; Wt 99.8 kg
[2018-10-10 20:55] VITALS: BP_SYST 132
--- NOTE | 2018-10-10 21:00 | NUR ---
Patient triaged and placed in waiting room. VSS and patient appears in no acute distress at this time. Accompanied by SELF, awaiting available bed, and MD notified of need for MSE.
--- NOTE | 2018-10-10 21:05 | NUR ---
Patient to ER bed 5 for evaluation.
--- NOTE | 2018-10-10 21:15 | NUR ---
Dr. Gillespie bedside for Pt eval
[2018-10-10] MEDS ORDERED: NACL 0.9% 1,000 ML IV ONE (21:18)
--- NOTE | 2018-10-10 21:20 | NUR ---
Pt BIB friend (enedina) to ED C/O 3 week history of constant, 10/10, diffuse abdominal pain. The Pt claims that she was previously seen at [facility] and was to be admitted for a hernia surgery but left because "I was scared of the surgery so I told them no and left." The Pt is now requesting to be treated with Dilaudid or Morphine. No other injuries and or complaints noted. VSS no s/s of acute distress. Resting on gurney with rails up
[2018-10-10 21:53] LABS: BILIRUBIN,URINE NEGATIVE (NEGATIVE); BLOOD, URINE 3+ (NEGATIVE); CLARITY/URINE HAZY (CLEAR); COLOR,URINE RED (YELLOW); GLUCOSE,URINE NEGATIVE (NEGATIVE); KETONES,URINE NEGATIVE (NEGATIVE); LEUKOCYTE ESTERASE ,URINE 1+ (NEGATIVE); NITRITE, URINE NEGATIVE (NEGATIVE); PH,URINE 8.5 (5.0-8.0); PROTEIN URINE 1+ (NEGATIVE); UROBILINOGEN,URINE 0.2 (0.2-1.0)
--- NOTE | 2018-10-10 22:00 | NUR ---
Pt aware Dr. Gillespie will not be prescribing Pt with Dilaudid.
[2018-10-10 22:02] LABS: BACTERIA,URINE MODERATE /HPF (None Seen); MUCUS,URINE None Seen /LPF (None Seen); RBC,URINE 50-80 /HPF (0-3)
[2018-10-10 22:16] LABS: BASOPHILS # (AUTO) 0.1 K/uL (0.0-0.2); BASOPHILS % (AUTO) 0.7 % (0.0-2.0); EOSINOPHILS # (AUTO) 0.3 K/uL (0.0-0.4); EOSINOPHILS % (AUTO) 3.3 % (0.0-4.0); HEMATOCRIT 26.8 % (36-48); HEMOGLOBIN 8.2 g/dL (12.0-16.0); LYMPHOCYTES # (AUTO) 1.9 K/uL (1.0-5.5); LYMPHOCYTES % (AUTO) 24.7 % (20.5-51.5); MEAN CORPUSCULAR HEMOGLOBIN 22 pg (27-31); MEAN CORPUSCULAR HGB CONC 31 % (32-36); MEAN CORPUSCULAR VOLUME 72 fL (79.0-98.0); MONOCYTES # (AUTO) 0.8 K/uL (0.0-1.0); MONOCYTES % (AUTO) 10.6 % (1.7-9.3); NEUTROPHILS # (AUTO) 4.7 K/uL (1.8-7.7); NEUTROPHILS % (AUTO) 60.7 % (40.0-70.0); PLATELET COUNT (AUTO) 253 K/uL (130-430); RED BLOOD CELL COUNT(AUTO) 3.71 MIL/uL (4.2-6.2); RED CELL DISTRIBUTION WIDTH 17.9 % (9.0-15.0); WHITE BLOOD COUNT (AUTO) 7.8 K/uL (4.8-10.8)
[2018-10-10 22:47] LABS: CALCIUM 8.9 mg/dL (8.4-11.0); CREATININE 0.65 mg/dL (0.55-1.30); POTASSIUM 4.1 mmol/L (3.5-5.1)
[2018-10-10 22:53] LABS: ALBUMIN 3.3 g/dL (3.4-4.8)
[2018-10-10 23:05] LABS: TOTAL BILIRUBIN 0.1 mg/dL (0.0-1.0)
[2018-10-10 23:10] VITALS: BP_SYST 132
--- NOTE | 2018-10-10 23:10 | NUR ---
Patient given written and verbal discharge instructions and verbalizes understanding. ER MD discussed with patient the results and treatment provided. Patient in stable condition. ID arm band removed. IV catheter removed intact and dressing applied, no active bleeding. Patient educated on pain management and to follow up with PMD. Pain Scale 0/10 Opportunity for questions provided and answered.
== END 2018-10-10 23:10 | disposition home or self-care (01) ==
LOC: SED 20:51
DX: R10.84 Generalized abdominal pain (principal); F32.9 Major depressive disorder, single episode, unspecified; F41.9 Anxiety disorder, unspecified; I10 Essential (primary) hypertension; Z90.710 Acquired absence of both cervix and uterus; Z79.899 Other long term (current) drug therapy; Z88.0 Allergy status to penicillin; Z88.6 Allergy status to analgesic agent; Z91.048 Other nonmedicinal substance allergy status
CPT/HCPCS: 36415; 80053; 81000; 82150; 83690; 85025; 85610; 87086; 99283; J7030

== ENCOUNTER 2018-10-30 13:51 | Emergency (ER) | payer MEDICAID ==
[~2018-10-30] VITALS: Ht 147.3 cm; Wt 90.7 kg
[2018-10-30 13:59] VITALS: BP_SYST 123
[2018-10-30] MEDS ORDERED: NACL 0.9% 1,000 ML IV ONE (14:14)
[2018-10-30] MEDS ORDERED: ONDANSETRON HCL 4 MG/2 ML VIAL IVP ONE (14:15)
[2018-10-30] MEDS ORDERED: MORPHINE 4 MG/ML INJ. SYRINGE IVP ONE (14:30)
[2018-10-30 15:09] LABS: BASOPHILS # (AUTO) 0.1 K/uL (0.0-0.2)
[2018-10-30 15:13] LABS: BASOPHILS % (AUTO) 0.8 % (0.0-2.0); EOSINOPHILS # (AUTO) 0.3 K/uL (0.0-0.4); EOSINOPHILS % (AUTO) 4.1 % (0.0-4.0); HEMATOCRIT 27.9 % (36-48); HEMOGLOBIN 8.6 g/dL (12.0-16.0); LYMPHOCYTES # (AUTO) 1.7 K/uL (1.0-5.5); LYMPHOCYTES % (AUTO) 22.4 % (20.5-51.5); MEAN CORPUSCULAR HEMOGLOBIN 22 pg (27-31); MEAN CORPUSCULAR HGB CONC 31 % (32-36); MEAN CORPUSCULAR VOLUME 72 fL (79.0-98.0); MONOCYTES # (AUTO) 0.6 K/uL (0.0-1.0); MONOCYTES % (AUTO) 8.2 % (1.7-9.3); NEUTROPHILS # (AUTO) 4.8 K/uL (1.8-7.7); NEUTROPHILS % (AUTO) 64.5 % (40.0-70.0); PLATELET COUNT (AUTO) 231 K/uL (130-430); RED CELL DISTRIBUTION WIDTH 17.8 % (9.0-15.0); WHITE BLOOD COUNT (AUTO) 7.4 K/uL (4.8-10.8)
[2018-10-30 15:22] LABS: BILIRUBIN,URINE NEGATIVE (NEGATIVE); BLOOD, URINE NEGATIVE (NEGATIVE); CLARITY/URINE CLEAR (CLEAR); GLUCOSE,URINE NEGATIVE (NEGATIVE); KETONES,URINE NEGATIVE (NEGATIVE); NITRITE, URINE NEGATIVE (NEGATIVE); PROTEIN URINE NEGATIVE (NEGATIVE); UROBILINOGEN,URINE 0.2 (0.2-1.0)
[2018-10-30 15:27] LABS: CALCIUM 8.8 mg/dL (8.4-11.0); CREATININE 0.62 mg/dL (0.55-1.30); POTASSIUM 3.7 mmol/L (3.5-5.1)
[2018-10-30 15:29] LABS: COLOR,URINE STRAW (YELLOW); LEUKOCYTE ESTERASE ,URINE TRACE (NEGATIVE)
[2018-10-30 15:30] LABS: BACTERIA,URINE MODERATE /HPF (None Seen); MUCUS,URINE None Seen /LPF (None Seen); RBC,URINE 0-3 /HPF (0-3)
[2018-10-30 15:32] LABS: ALBUMIN 3.7 g/dL (3.4-4.8); TOTAL BILIRUBIN 0.2 mg/dL (0.0-1.0)
[2018-10-30] MEDS ORDERED: BELLADONNA ALKALOIDS/PHENOBARB 5 ML UDC PO ONE (15:45)
[2018-10-30] MEDS ORDERED: LIDOCAINE VISCOUS 2%, 15 ML UDC MM ONE (15:45)
[2018-10-30] MEDS ORDERED: MAG-AL HYDROX/SIMETH 30 ML UDC PO ONE (15:45)
[2018-10-30 16:16] VITALS: BP_SYST 123
== END 2018-10-30 16:16 | disposition home or self-care (01) ==
LOC: SED 13:51
DX: K46.9 Unspecified abdominal hernia without obstruction or gangrene (principal); N39.0 Urinary tract infection, site not specified; D64.9 Anemia, unspecified; I10 Essential (primary) hypertension; F32.9 Major depressive disorder, single episode, unspecified; F41.9 Anxiety disorder, unspecified; Z88.0 Allergy status to penicillin; Z88.6 Allergy status to analgesic agent; Z91.048 Other nonmedicinal substance allergy status; Z79.899 Other long term (current) drug therapy
CPT/HCPCS: 36415; 74176; 80053; 81000; 81025; 83690; 85025; 87086; 96374; 96375; 99284; J2001; J2270; J2405; J7030

== ENCOUNTER 2018-11-01 15:10 | Emergency (ER) | payer MEDICAID ==
[~2018-11-01] VITALS: Ht 147.3 cm; Wt 90.7 kg
[2018-11-01 15:22] VITALS: BP_SYST 128
[2018-11-01 16:23] LABS: BASOPHILS # (AUTO) 0.1 K/uL (0.0-0.2); BASOPHILS % (AUTO) 0.6 % (0.0-2.0); EOSINOPHILS # (AUTO) 0.3 K/uL (0.0-0.4); HEMATOCRIT 30.3 % (36-48); HEMOGLOBIN 9.1 g/dL (12.0-16.0); LYMPHOCYTES # (AUTO) 1.5 K/uL (1.0-5.5); LYMPHOCYTES % (AUTO) 17.1 % (20.5-51.5); MEAN CORPUSCULAR HEMOGLOBIN 22 pg (27-31); MEAN CORPUSCULAR HGB CONC 30 % (32-36); MEAN CORPUSCULAR VOLUME 72 fL (79.0-98.0); MONOCYTES # (AUTO) 0.6 K/uL (0.0-1.0); MONOCYTES % (AUTO) 7.1 % (1.7-9.3); NEUTROPHILS # (AUTO) 6.1 K/uL (1.8-7.7); NEUTROPHILS % (AUTO) 71.2 % (40.0-70.0); PLATELET COUNT (AUTO) 233 K/uL (130-430); RED BLOOD CELL COUNT(AUTO) 4.22 MIL/uL (4.2-6.2); RED CELL DISTRIBUTION WIDTH 17.6 % (9.0-15.0); WHITE BLOOD COUNT (AUTO) 8.6 K/uL (4.8-10.8)
[2018-11-01 16:32] LABS: CREATININE 0.65 mg/dL (0.55-1.30); POTASSIUM 3.9 mmol/L (3.5-5.1)
[2018-11-01 16:36] LABS: ALBUMIN 3.7 g/dL (3.4-4.8); TOTAL BILIRUBIN 0.2 mg/dL (0.0-1.0)
--- NOTE | 2018-11-01 16:45 | NUR ---
Patient to ER bed 08 to gown for evaluation. Side rails up.
--- NOTE | 2018-11-01 16:47 | NUR ---
Pt brought by self,A&Ox4, pt presents to ER with abdominal pain , nausea, loose stool, pt states she has Hx of umbilical hernia, skin pink and warm, no active vomiting noted at this time, cap refill <3, VSS, respirations even and unlabored, pt able to ambulate, VSS.
--- NOTE | 2018-11-01 17:00 | NUR ---
Dr Fitzpatrick at bedside examining patient
[2018-11-01] MEDS ORDERED: HYDROcodone/ACETAMIN 5-325 MG TAB (NORCO/ VICODIN) PO ONE (17:15)
[2018-11-01 17:38] VITALS: BP_SYST 128
--- NOTE | 2018-11-01 17:42 | NUR ---
Patient given written and verbal discharge instructions and verbalizes understanding. ER MD discussed with patient the results and treatment provided. Patient in stable condition. ID arm band removed. Rx of [place] given. Patient educated on pain management and to follow up with PMD. Pain Scale 2/10 tolerable for patient. Opportunity for questions provided and answered. Medication side effect fact sheet provided.
== END 2018-11-01 17:38 | disposition home or self-care (01) ==
LOC: SED 15:10
DX: K42.9 Umbilical hernia without obstruction or gangrene (principal); I10 Essential (primary) hypertension; F32.9 Major depressive disorder, single episode, unspecified; F41.9 Anxiety disorder, unspecified; Z79.899 Other long term (current) drug therapy; Z88.0 Allergy status to penicillin; Z88.6 Allergy status to analgesic agent; Z91.048 Other nonmedicinal substance allergy status
CPT/HCPCS: 36415; 80053; 81002; 83690-TC; 85025; 99283

== ENCOUNTER 2018-11-06 12:43 | Emergency (ER) | payer MEDICAID ==
[~2018-11-06] VITALS: Ht 147.3 cm; Wt 136.1 kg
[2018-11-06 13:42] VITALS: BP_SYST 140
[2018-11-06 15:00] LABS: BASOPHILS % (AUTO) 0.5 % (0.0-2.0); EOSINOPHILS # (AUTO) 0.1 K/uL (0.0-0.4); HEMOGLOBIN 9.6 g/dL (12.0-16.0); LYMPHOCYTES # (AUTO) 1.1 K/uL (1.0-5.5); LYMPHOCYTES % (AUTO) 14.7 % (20.5-51.5); MEAN CORPUSCULAR HEMOGLOBIN 22 pg (27-31); MEAN CORPUSCULAR HGB CONC 30 % (32-36); MEAN CORPUSCULAR VOLUME 72 fL (79.0-98.0); MONOCYTES # (AUTO) 0.5 K/uL (0.0-1.0); MONOCYTES % (AUTO) 6.1 % (1.7-9.3); NEUTROPHILS # (AUTO) 5.8 K/uL (1.8-7.7); NEUTROPHILS % (AUTO) 76.7 % (40.0-70.0); PLATELET COUNT (AUTO) 278 K/uL (130-430); RED BLOOD CELL COUNT(AUTO) 4.45 MIL/uL (4.2-6.2); RED CELL DISTRIBUTION WIDTH 17.6 % (9.0-15.0); WHITE BLOOD COUNT (AUTO) 7.5 K/uL (4.8-10.8)
[2018-11-06 15:09] LABS: CREATININE 0.62 mg/dL (0.55-1.30); POTASSIUM 4.1 mmol/L (3.5-5.1)
[2018-11-06 15:13] LABS: ALBUMIN 3.9 g/dL (3.4-4.8); TOTAL BILIRUBIN 0.2 mg/dL (0.0-1.0)
[2018-11-06] MEDS ORDERED: HYDROcodone/ACETAMIN 5-325 MG TAB (NORCO/ VICODIN) PO ONE (15:30)
[2018-11-06 16:00] VITALS: BP_SYST 135
== END 2018-11-06 16:00 | disposition home or self-care (01) ==
LOC: SED 12:43
DX: G89.29 Other chronic pain (principal); R42 Dizziness and giddiness; I10 Essential (primary) hypertension; F32.9 Major depressive disorder, single episode, unspecified; F41.9 Anxiety disorder, unspecified; Z88.0 Allergy status to penicillin; Z88.6 Allergy status to analgesic agent; Z91.048 Other nonmedicinal substance allergy status; Z79.899 Other long term (current) drug therapy
CPT/HCPCS: 36415; 80053; 83690-TC; 85025; 99283

== ENCOUNTER 2018-11-15 16:04 | Emergency (ER) | payer MEDICAID ==
[~2018-11-15] VITALS: Ht 177.8 cm; Wt 90.7 kg
[2018-11-15 16:08] VITALS: BP_SYST 126
[2018-11-15 16:34] VITALS: BP_SYST 126
== END 2018-11-15 16:34 | disposition home or self-care (01) ==
LOC: SED 16:04
DX: M54.9 Dorsalgia, unspecified (principal); I10 Essential (primary) hypertension; F41.9 Anxiety disorder, unspecified; F32.9 Major depressive disorder, single episode, unspecified; Z88.0 Allergy status to penicillin; Z88.5 Allergy status to narcotic agent; Z88.6 Allergy status to analgesic agent; Z88.8 Allergy status to other drugs, medicaments and biological substances; Z79.899 Other long term (current) drug therapy
CPT/HCPCS: 81002; 99282

== ENCOUNTER 2018-11-24 10:50 | Emergency (ER) | payer MEDICAID ==
[~2018-11-24] VITALS: Ht 147.3 cm; Wt 99.8 kg
[2018-11-24 10:50] VITALS: BP_SYST 153
[2018-11-24 11:54] VITALS: BP_SYST 142
== END 2018-11-24 11:54 | disposition home or self-care (01) ==
LOC: SED 10:50
DX: F41.9 Anxiety disorder, unspecified (principal); G89.29 Other chronic pain; I10 Essential (primary) hypertension; Z88.0 Allergy status to penicillin; Z88.5 Allergy status to narcotic agent; Z79.899 Other long term (current) drug therapy
CPT/HCPCS: 81002; 81025; 99283

== ENCOUNTER 2018-12-17 10:48 | Emergency (ER) | payer MEDICAID ==
[~2018-12-17] VITALS: Ht 147.3 cm; Wt 90.7 kg
[2018-12-17 11:07] VITALS: BP_SYST 131
--- NOTE | 2018-12-17 16:00 | NUR ---
Called patient x 1 , no answer
== END 2018-12-17 16:00 | disposition left against medical advice (07) ==
LOC: SED 10:48
DX: R10.31 Right lower quadrant pain (principal); R10.32 Left lower quadrant pain; I10 Essential (primary) hypertension; F41.9 Anxiety disorder, unspecified; F32.9 Major depressive disorder, single episode, unspecified; Z88.0 Allergy status to penicillin; Z88.6 Allergy status to analgesic agent; Z91.048 Other nonmedicinal substance allergy status; Z79.899 Other long term (current) drug therapy; Z53.21 Procedure and treatment not carried out due to patient leaving prior to being seen by health care provider

== ENCOUNTER 2018-12-19 16:40 | Emergency (ER) | payer MEDICAID ==
[~2018-12-19] VITALS: Ht 147.3 cm; Wt 90.7 kg
[2018-12-19 16:51] VITALS: BP_SYST 119
[2018-12-19 17:40] LABS: BASOPHILS % (AUTO) 0.5 % (0.0-2.0); EOSINOPHILS # (AUTO) 0.2 K/uL (0.0-0.4); EOSINOPHILS % (AUTO) 1.9 % (0.0-4.0); HEMATOCRIT 31.7 % (36-48); HEMOGLOBIN 9.7 g/dL (12.0-16.0); LYMPHOCYTES # (AUTO) 1.5 K/uL (1.0-5.5); LYMPHOCYTES % (AUTO) 18.1 % (20.5-51.5); MEAN CORPUSCULAR HEMOGLOBIN 21 pg (27-31); MEAN CORPUSCULAR HGB CONC 31 % (32-36); MEAN CORPUSCULAR VOLUME 70 fL (79.0-98.0); MONOCYTES # (AUTO) 0.7 K/uL (0.0-1.0); MONOCYTES % (AUTO) 8.1 % (1.7-9.3); NEUTROPHILS # (AUTO) 5.9 K/uL (1.8-7.7); NEUTROPHILS % (AUTO) 71.4 % (40.0-70.0); PLATELET COUNT (AUTO) 242 K/uL (130-430); RED BLOOD CELL COUNT(AUTO) 4.52 MIL/uL (4.2-6.2); RED CELL DISTRIBUTION WIDTH 17.9 % (9.0-15.0); WHITE BLOOD COUNT (AUTO) 8.2 K/uL (4.8-10.8)
[2018-12-19 18:21] LABS: CALCIUM 9.3 mg/dL (8.4-11.0); CREATININE 0.54 mg/dL (0.55-1.30)
[2018-12-19 18:25] LABS: ALBUMIN 3.8 g/dL (3.4-4.8); TOTAL BILIRUBIN 0.1 mg/dL (0.0-1.0)
[2018-12-19] MEDS ORDERED: HYDROcodone/ACETAMIN 5-325 MG TAB (NORCO/ VICODIN) PO ONE (19:00)
[2018-12-19 19:07] VITALS: BP_SYST 119
== END 2018-12-19 19:06 | disposition home or self-care (01) ==
LOC: SED 16:40
DX: R10.31 Right lower quadrant pain (principal); R10.32 Left lower quadrant pain; R11.2 Nausea with vomiting, unspecified; R19.7 Diarrhea, unspecified; I10 Essential (primary) hypertension; F32.9 Major depressive disorder, single episode, unspecified; F41.9 Anxiety disorder, unspecified; Z88.0 Allergy status to penicillin; Z88.6 Allergy status to analgesic agent; Z91.048 Other nonmedicinal substance allergy status; Z79.899 Other long term (current) drug therapy
CPT/HCPCS: 36415; 74018; 80053; 81025; 82150-TC; 83605; 83690-TC; 84703; 85025; 85610-TC; 85730-TC; 99284

== ENCOUNTER 2018-12-29 19:28 | Emergency (ER) | payer MEDICAID ==
[~2018-12-29] VITALS: Ht 147.3 cm; Wt 90.7 kg
[2018-12-29 19:35] VITALS: BP_SYST 160
--- NOTE | 2018-12-29 19:43 | NUR ---
Patient to ER bed 3 for evaluation. Side rails up.
--- NOTE | 2018-12-29 19:44 | NUR ---
Pt C/O abdominal pain x 2 days associated with nausea and vomiting. Pt denies any guarding, no rigidity, no other symptoms at this time. Was seen on 12/19/18 for the same chief complaint. Will continue to monitor.
--- NOTE | 2018-12-29 19:55 | NUR ---
ER Dr. Lima at bedside examining patient.
[2018-12-29] MEDS ORDERED: NACL 0.9% 1,000 ML IV ONE (20:01)
[2018-12-29] MEDS ORDERED: MORPHINE 4 MG/ML INJ. SYRINGE IVP ONE ×3 (20:15→22:00)
[2018-12-29] MEDS ORDERED: ONDANSETRON HCL 4 MG/2 ML VIAL IVP ONE (20:15)
[2018-12-29] MEDS ORDERED: DIPHENHYDRAMINE INJ 50 MG/ML VIAL IVP ONE (20:15)
[2018-12-29 21:04] LABS: BILIRUBIN,URINE NEGATIVE (NEGATIVE); BLOOD, URINE 3+ (NEGATIVE); CLARITY/URINE SL CLOUDY (CLEAR); COLOR,URINE RED (YELLOW); GLUCOSE,URINE NEGATIVE (NEGATIVE); KETONES,URINE NEGATIVE (NEGATIVE); LEUKOCYTE ESTERASE ,URINE TRACE (NEGATIVE); NITRITE, URINE NEGATIVE (NEGATIVE); PROTEIN URINE 2+ (NEGATIVE); UROBILINOGEN,URINE 0.2 (0.2-1.0)
--- NOTE | 2018-12-29 21:05 | NUR ---
Patient transported to radiology via gurney, accompanied by rad staff.
[2018-12-29 21:11] LABS: BASOPHILS % (AUTO) 0.5 % (0.0-2.0); EOSINOPHILS # (AUTO) 0.1 K/uL (0.0-0.4); EOSINOPHILS % (AUTO) 1.5 % (0.0-4.0); HEMATOCRIT 27.6 % (36-48); HEMOGLOBIN 8.6 g/dL (12.0-16.0); LYMPHOCYTES # (AUTO) 1.7 K/uL (1.0-5.5); MEAN CORPUSCULAR HEMOGLOBIN 22 pg (27-31); MEAN CORPUSCULAR HGB CONC 31 % (32-36); MEAN CORPUSCULAR VOLUME 70 fL (79.0-98.0); MONOCYTES # (AUTO) 0.7 K/uL (0.0-1.0); MONOCYTES % (AUTO) 7.1 % (1.7-9.3); NEUTROPHILS # (AUTO) 6.6 K/uL (1.8-7.7); NEUTROPHILS % (AUTO) 71.9 % (40.0-70.0); PLATELET COUNT (AUTO) 246 K/uL (130-430); RED BLOOD CELL COUNT(AUTO) 3.93 MIL/uL (4.2-6.2); RED CELL DISTRIBUTION WIDTH 17.8 % (9.0-15.0); WHITE BLOOD COUNT (AUTO) 9.2 K/uL (4.8-10.8)
--- NOTE | 2018-12-29 21:16 | NUR ---
Pt returned in stable condition. Will continue to monitor.
[2018-12-29 21:17] LABS: CALCIUM 8.1 mg/dL (8.4-11.0); CREATININE 0.6 mg/dL (0.55-1.30); POTASSIUM 3.5 mmol/L (3.5-5.1)
[2018-12-29 21:18] LABS: BACTERIA,URINE FEW /HPF (None Seen); RBC,URINE >100 /HPF (0-3)
[2018-12-29 21:19] LABS: MUCUS,URINE None Seen /LPF (None Seen)
[2018-12-29 21:28] LABS: ALBUMIN 3.5 g/dL (3.4-4.8); TOTAL BILIRUBIN 0.1 mg/dL (0.0-1.0)
--- NOTE | 2018-12-29 22:19 | NUR ---
Pt is resting comfortably in bed, has been medicated with Morphine 3 mg for abdominal pain 11/27. Will continue to monitor.
--- NOTE | 2018-12-29 22:51 | NUR ---
Patient given written and verbal discharge instructions and verbalizes understanding. ER MD discussed with patient the results and treatment provided. Patient in stable condition. ID arm band removed. IV catheter removed intact and dressing applied, no active bleeding. Rx of Ativan, Soma and [place] given. Patient educated on pain management and to follow up with PMD. Pain Scale 0. Opportunity for questions provided and answered. Medication side effect fact sheet provided.
[2018-12-29 22:52] VITALS: BP_SYST 133
== END 2018-12-29 22:52 | disposition home or self-care (01) ==
LOC: SED 19:28
DX: K42.9 Umbilical hernia without obstruction or gangrene (principal); Z86.2 Personal history of diseases of the blood and blood-forming organs and certain disorders involving the immune mechanism; I10 Essential (primary) hypertension; F32.9 Major depressive disorder, single episode, unspecified; F41.9 Anxiety disorder, unspecified; Z88.0 Allergy status to penicillin; Z88.6 Allergy status to analgesic agent; Z91.048 Other nonmedicinal substance allergy status; Z79.899 Other long term (current) drug therapy
CPT/HCPCS: 36415; 74176; 80053; 81000; 85025; 87086; 96361; 96374; 96375; 99284; J1200; J2270; J2405; J7030

== ENCOUNTER 2019-01-03 21:00 | Emergency (ER) | payer MEDICAID ==
[~2019-01-03] VITALS: Ht 147.3 cm; Wt 93.4 kg
[2019-01-03 21:21] VITALS: BP_SYST 124
--- NOTE | 2019-01-03 21:26 | NUR ---
Patient triaged and placed in waiting room. VSS and patient appears in no acute distress at this time. Accompanied by self, awaiting available bed, and MD notified of need for MSE.
[2019-01-03 22:08] LABS: BASOPHILS # (AUTO) 0.1 K/uL (0.0-0.2); BASOPHILS % (AUTO) 0.7 % (0.0-2.0); EOSINOPHILS # (AUTO) 0.1 K/uL (0.0-0.4); EOSINOPHILS % (AUTO) 1.5 % (0.0-4.0); HEMATOCRIT 29.3 % (36-48); HEMOGLOBIN 8.9 g/dL (12.0-16.0); LYMPHOCYTES % (AUTO) 21.6 % (20.5-51.5); MEAN CORPUSCULAR HEMOGLOBIN 21 pg (27-31); MEAN CORPUSCULAR HGB CONC 30 % (32-36); MEAN CORPUSCULAR VOLUME 70 fL (79.0-98.0); MONOCYTES # (AUTO) 0.8 K/uL (0.0-1.0); MONOCYTES % (AUTO) 8.8 % (1.7-9.3); NEUTROPHILS # (AUTO) 6.3 K/uL (1.8-7.7); NEUTROPHILS % (AUTO) 67.4 % (40.0-70.0); PLATELET COUNT (AUTO) 242 K/uL (130-430); RED BLOOD CELL COUNT(AUTO) 4.18 MIL/uL (4.2-6.2); RED CELL DISTRIBUTION WIDTH 17.9 % (9.0-15.0); WHITE BLOOD COUNT (AUTO) 9.3 K/uL (4.8-10.8)
[2019-01-03 22:25] LABS: CALCIUM 8.7 mg/dL (8.4-11.0); CREATININE 0.63 mg/dL (0.55-1.30); POTASSIUM 3.4 mmol/L (3.5-5.1)
[2019-01-03 22:30] LABS: ALBUMIN 3.7 g/dL (3.4-4.8); TOTAL BILIRUBIN 0.1 mg/dL (0.0-1.0)
--- NOTE | 2019-01-03 22:33 | NUR ---
Patient to ER bed 5 to gown for evaluation. Side rails up. Report given to Dorys TORIBIO by Jj TORIBIO.
--- NOTE | 2019-01-03 22:45 | NUR ---
Patient brought in complaining of bilateral pelvic pain starting today that is sharp and shooting 10/10. Reports vomiting and diarrhea. No other complaints/injuries per patient or as noted. Will continue to monitor.
[2019-01-03 23:02] LABS: BILIRUBIN,URINE NEGATIVE (NEGATIVE); BLOOD, URINE NEGATIVE (NEGATIVE); CLARITY/URINE CLOUDY (CLEAR); COLOR,URINE YELLOW (YELLOW); GLUCOSE,URINE NEGATIVE (NEGATIVE); KETONES,URINE NEGATIVE (NEGATIVE); LEUKOCYTE ESTERASE ,URINE TRACE (NEGATIVE); NITRITE, URINE NEGATIVE (NEGATIVE); PROTEIN URINE NEGATIVE (NEGATIVE); UROBILINOGEN,URINE 0.2 (0.2-1.0)
--- NOTE | 2019-01-03 23:20 | NUR ---
ER Dr. Lima at bedside examining patient.
[2019-01-03] MEDS ORDERED: NACL 0.9% 1,000 ML IV ONE (23:23)
[2019-01-03] MEDS ORDERED: DIPHENHYDRAMINE INJ 50 MG/ML VIAL IVP ONE (23:30)
[2019-01-03] MEDS ORDERED: ONDANSETRON HCL 4 MG/2 ML VIAL IVP ONE (23:30)
[2019-01-03 23:43] LABS: BACTERIA,URINE FEW /HPF (None Seen); RBC,URINE 0-3 /HPF (0-3)
--- NOTE | 2019-01-03 23:54 | NUR ---
Patient requesting pain medication for headache 01/27. States "Morphine 2 mg IV Push works great for me. Can you please ask the doctor?" notified.
[2019-01-04] MEDS ORDERED: HYDROcodone/ACETAMIN 7.5-325 MG TAB PO ONE
--- NOTE | 2019-01-04 | NUR ---
Patient moved to Hallway bed 1
--- NOTE | 2019-01-04 00:58 | NUR ---
Patient complaining of pain abdomen 01/27. No acute distress noted. Patient sitting in gurney using cell phone. Requesting stronger pain medication.
[2019-01-04] MEDS ORDERED: MORPHINE 4 MG/ML INJ. SYRINGE IVP ONE ×2 (01:00→03:00)
--- NOTE | 2019-01-04 01:41 | NUR ---
Patient off unit to ultrasound
--- NOTE | 2019-01-04 02:32 | NUR ---
ER at bedside re examining patient.
[2019-01-04 03:08] VITALS: BP_SYST 132
--- NOTE | 2019-01-04 03:08 | NUR ---
Patient given written and verbal discharge instructions and verbalizes understanding. ER MD discussed with patient the results and treatment provided. Patient in stable condition. ID arm band removed. IV catheter removed intact and dressing applied, no active bleeding. No Rx given. Patient educated on pain management and to follow up with PMD on Thursday. Pain Scale 0/10 Opportunity for questions provided and answered.
== END 2019-01-04 03:08 | disposition home or self-care (01) ==
LOC: SED 21:00
DX: R10.2 Pelvic and perineal pain (principal); R11.10 Vomiting, unspecified; R19.7 Diarrhea, unspecified; I10 Essential (primary) hypertension; F32.9 Major depressive disorder, single episode, unspecified; F41.9 Anxiety disorder, unspecified; Z90.49 Acquired absence of other specified parts of digestive tract; Z79.899 Other long term (current) drug therapy; Z88.0 Allergy status to penicillin; Z88.6 Allergy status to analgesic agent; Z91.048 Other nonmedicinal substance allergy status
CPT/HCPCS: 36415; 76830; 76857; 80053; 81000; 85025; 87086; 96361; 96374; 96375 ×2; 96376; 99284; J1200; J2270; J2405; J7030

== ENCOUNTER 2019-01-06 18:01 | Emergency (ER) | payer MEDICAID ==
[~2019-01-06] VITALS: Ht 147.3 cm; Wt 93.4 kg
[2019-01-06 18:17] VITALS: BP_SYST 130
== END 2019-01-06 18:20 | disposition left against medical advice (07) ==
LOC: SED 18:01
DX: R10.2 Pelvic and perineal pain (principal); Z53.21 Procedure and treatment not carried out due to patient leaving prior to being seen by health care provider

== ENCOUNTER 2019-01-08 16:55 | Emergency (ER) | payer MEDICAID ==
[~2019-01-08] VITALS: Ht 147.3 cm; Wt 90.7 kg
[2019-01-08 17:16] VITALS: BP_SYST 149
[2019-01-08 18:31] LABS: CALCIUM 8.8 mg/dL (8.4-11.0); CREATININE 0.5 mg/dL (0.55-1.30); POTASSIUM 3.7 mmol/L (3.5-5.1)
[2019-01-08 18:37] LABS: BASOPHILS # (AUTO) 0.1 K/uL (0.0-0.2); BASOPHILS % (AUTO) 0.7 % (0.0-2.0); EOSINOPHILS # (AUTO) 0.1 K/uL (0.0-0.4); EOSINOPHILS % (AUTO) 1.4 % (0.0-4.0); HEMATOCRIT 32.3 % (36-48); HEMOGLOBIN 9.6 g/dL (12.0-16.0); LYMPHOCYTES # (AUTO) 1.6 K/uL (1.0-5.5); LYMPHOCYTES % (AUTO) 18.1 % (20.5-51.5); MEAN CORPUSCULAR HEMOGLOBIN 21 pg (27-31); MEAN CORPUSCULAR HGB CONC 30 % (32-36); MEAN CORPUSCULAR VOLUME 70 fL (79.0-98.0); MONOCYTES # (AUTO) 0.6 K/uL (0.0-1.0); MONOCYTES % (AUTO) 6.8 % (1.7-9.3); NEUTROPHILS # (AUTO) 6.5 K/uL (1.8-7.7); PLATELET COUNT (AUTO) 239 K/uL (130-430); RED BLOOD CELL COUNT(AUTO) 4.59 MIL/uL (4.2-6.2); RED CELL DISTRIBUTION WIDTH 17.8 % (9.0-15.0); WHITE BLOOD COUNT (AUTO) 8.9 K/uL (4.8-10.8)
[2019-01-08 18:44] LABS: ALBUMIN 3.9 g/dL (3.4-4.8); TOTAL BILIRUBIN 0.2 mg/dL (0.0-1.0)
[2019-01-08 20:33] LABS: BILIRUBIN,URINE NEGATIVE (NEGATIVE); BLOOD, URINE NEGATIVE (NEGATIVE); CLARITY/URINE CLEAR (CLEAR); COLOR,URINE YELLOW (YELLOW); GLUCOSE,URINE NEGATIVE (NEGATIVE); KETONES,URINE NEGATIVE (NEGATIVE); LEUKOCYTE ESTERASE ,URINE NEGATIVE (NEGATIVE); NITRITE, URINE NEGATIVE (NEGATIVE); PH,URINE 6.5 (5.0-8.0); PROTEIN URINE NEGATIVE (NEGATIVE); UROBILINOGEN,URINE 0.2 (0.2-1.0)
--- NOTE | 2019-01-08 22:04 | NUR ---
Patient to ER bed 5 to gown for evaluation. Side rails up. Report given to KIERRA TORIBIO.
--- NOTE | 2019-01-08 22:10 | NUR ---
Patient arrived via POV, AAOx4, and ambulatory with steady gait. Patient c/c of lower abdominal pain, vomiting, diarrhea x4 days. Patient has subjective fever. Patient rates pain 10/10. Patient calm and cooperative. Will continue to follow up and monitor.
--- NOTE | 2019-01-08 23:15 | NUR ---
ER at bedside examining patient.
[2019-01-08 23:40] VITALS: BP_SYST 149
--- NOTE | 2019-01-08 23:40 | NUR ---
Dr. Gonzales spoke with patient regarding medication prescriptions. Stating, "It is not safe for me to give you any more prescriptions, showing her the cures printout." Patient became upset, crying, then walked out. No discharge paperwork given.
== END 2019-01-08 23:40 | disposition home or self-care (01) ==
LOC: SED 16:55
DX: R10.30 Lower abdominal pain, unspecified (principal); Z88.0 Allergy status to penicillin; Z88.6 Allergy status to analgesic agent; Z91.048 Other nonmedicinal substance allergy status; Z79.899 Other long term (current) drug therapy
CPT/HCPCS: 36415; 80053; 81003; 81025; 83690-TC; 85025; 99283

== ENCOUNTER 2019-01-18 19:04 | Emergency (ER) | payer MEDICAID ==
[~2019-01-18] VITALS: Ht 147.3 cm; Wt 90.7 kg
[2019-01-18 19:43] VITALS: BP_SYST 147
[2019-01-19] MEDS ORDERED: ACETAMINOPHEN 500 MG TABLET PO ONE (00:45)
[2019-01-19 01:10] LABS: BILIRUBIN,URINE NEGATIVE (NEGATIVE); BLOOD, URINE NEGATIVE (NEGATIVE); CLARITY/URINE HAZY (CLEAR); COLOR,URINE YELLOW (YELLOW); GLUCOSE,URINE NEGATIVE (NEGATIVE); KETONES,URINE NEGATIVE (NEGATIVE); LEUKOCYTE ESTERASE ,URINE 3+ (NEGATIVE); NITRITE, URINE NEGATIVE (NEGATIVE); PH,URINE 5.5 (5.0-8.0); PROTEIN URINE NEGATIVE (NEGATIVE); UROBILINOGEN,URINE 0.2 (0.2-1.0)
[2019-01-19 01:16] LABS: BACTERIA,URINE MANY /HPF (None Seen); RBC,URINE 0-3 /HPF (0-3); WBC,URINE 50-80 /HPF (0-3)
[2019-01-19 01:16] LABS: BASOPHILS # (AUTO) 0.1 K/uL (0.0-0.2); BASOPHILS % (AUTO) 0.8 % (0.0-2.0); EOSINOPHILS % (AUTO) 0.2 % (0.0-4.0); HEMOGLOBIN 10.1 g/dL (12.0-16.0); LYMPHOCYTES % (AUTO) 13.5 % (20.5-51.5); MEAN CORPUSCULAR HEMOGLOBIN 22 pg (27-31); MEAN CORPUSCULAR HGB CONC 33 % (32-36); MEAN CORPUSCULAR VOLUME 69 fL (79.0-98.0); MONOCYTES % (AUTO) 6.8 % (1.7-9.3); NEUTROPHILS # (AUTO) 11.5 K/uL (1.8-7.7); NEUTROPHILS % (AUTO) 78.7 % (40.0-70.0); PLATELET COUNT (AUTO) 250 K/uL (130-430); RED BLOOD CELL COUNT(AUTO) 4.53 MIL/uL (4.2-6.2); RED CELL DISTRIBUTION WIDTH 17.6 % (9.0-15.0); WHITE BLOOD COUNT (AUTO) 14.6 K/uL (4.8-10.8)
[2019-01-19] MEDS ORDERED: CIPROFLOXACIN HCL 500 MG TABLET PO ONE (01:30)
[2019-01-19] MEDS ORDERED: ONDANSETRON 4 MG ODT TAB PO ONE (01:45)
[2019-01-19 02:58] LABS: ANION GAP 10 (5-15); CHLORIDE 99 mmol/L (98-107); CREATININE 0.61 mg/dL (0.55-1.30); GLUCOSE 98 mg/dL (70-99); POTASSIUM 3.5 mmol/L (3.5-5.1); SODIUM SERUM 137 mmol/L (136-145); UREA NITROGEN, BLOOD 8 mg/dL (8-21)
[2019-01-19 03:04] LABS: BARBITURATE, URINE NEGATIVE (NEG <=200); BENZODIAZEPINE, URINE POSITIVE (NEG <=150); CANNABINOID, URINE NEGATIVE (NEG <=50); COCAINE, URINE NEGATIVE (NEG <=150); METHAMPHETAMINES SCREEN,URINE NEGATIVE (NEG <=500); OPIATE, URINE POSITIVE (NEG <=100); PHENCYCLIDINE SCREEN,URINE NEGATIVE (NEG <=25); URINE AMPHETAMINE NEGATIVE (NEG <=500); URINE METHADONE NEGATIVE (NEG <=200)
[2019-01-19 03:05] LABS: UR TRICYCLIC ANTIDEPRESSANTS NEGATIVE (NEG <=300); URINE OXYCODONE SCREEN NEGATIVE (NEG <=100); URINE PROPOXYPHENE SCREEN NEGATIVE (NEG <=300)
[2019-01-19 03:10] LABS: ACETAMINOPHEN 3 ug/mL (1-30); ALANINE AMINOTRANSFERASE 10 U/L (12-78); ALBUMIN 3.9 g/dL (3.4-4.8); ALCOHOL, BLOOD < 3 mg/dL (<10); ASPARTATE AMINOTRANSFERASE 13 U/L (10-37); GFR AFRICAN AMERICAN 140 mL/min (>90); TOTAL BILIRUBIN 0.3 mg/dL (0.0-1.0)
[2019-01-19] MEDS ORDERED: LORazepam 1 MG TABLET PO ONE (08:00)
[2019-01-19 09:32] VITALS: BP_SYST 138
== END 2019-01-19 09:32 | disposition home or self-care (01) ==
LOC: SED 19:04
DX: R10.33 Periumbilical pain (principal); F41.9 Anxiety disorder, unspecified; I10 Essential (primary) hypertension; Z88.0 Allergy status to penicillin; Z88.6 Allergy status to analgesic agent; Z91.048 Other nonmedicinal substance allergy status; Z79.899 Other long term (current) drug therapy
CPT/HCPCS: 36415; 74176; 80053; 80307; 81000; 81025; 82140; 85025; 87086; 99284; G0480; G0481; G0482; Q0162

== ENCOUNTER 2019-01-24 18:50 | Emergency (ER) | payer MEDICAID ==
[~2019-01-24] VITALS: Ht 147.3 cm; Wt 93.0 kg
[2019-01-24 18:52] VITALS: BP_SYST 142
[2019-01-24 19:48] LABS: BASOPHILS # (AUTO) 0.1 K/uL (0.0-0.2); BASOPHILS % (AUTO) 0.8 % (0.0-2.0); EOSINOPHILS # (AUTO) 0.2 K/uL (0.0-0.4); EOSINOPHILS % (AUTO) 2.7 % (0.0-4.0); HEMOGLOBIN 8.8 g/dL (12.0-16.0); LYMPHOCYTES % (AUTO) 24.1 % (20.5-51.5); MEAN CORPUSCULAR HEMOGLOBIN 21 pg (27-31); MEAN CORPUSCULAR HGB CONC 31 % (32-36); MEAN CORPUSCULAR VOLUME 70 fL (79.0-98.0); MONOCYTES # (AUTO) 0.6 K/uL (0.0-1.0); MONOCYTES % (AUTO) 6.9 % (1.7-9.3); NEUTROPHILS # (AUTO) 5.5 K/uL (1.8-7.7); NEUTROPHILS % (AUTO) 65.5 % (40.0-70.0); PLATELET COUNT (AUTO) 257 K/uL (130-430); RED BLOOD CELL COUNT(AUTO) 4.17 MIL/uL (4.2-6.2); RED CELL DISTRIBUTION WIDTH 17.6 % (9.0-15.0); WHITE BLOOD COUNT (AUTO) 8.5 K/uL (4.8-10.8)
[2019-01-24 20:06] LABS: ALBUMIN 3.4 g/dL (3.4-4.8); CREATININE 0.62 mg/dL (0.55-1.30); POTASSIUM 3.1 mmol/L (3.5-5.1); TOTAL BILIRUBIN 0.2 mg/dL (0.0-1.0)
[2019-01-24 20:12] LABS: CALCIUM 8.2 mg/dL (8.4-11.0)
[2019-01-24] MEDS ORDERED: MORPHINE 4 MG/ML INJ. SYRINGE IM ONE (20:15)
[2019-01-24] MEDS ORDERED: POTASSIUM CHLORIDE 20 MEQ TAB.PRT.SR PO ONE (20:30)
[2019-01-24 20:50] VITALS: BP_SYST 142
== END 2019-01-24 20:50 | disposition home or self-care (01) ==
LOC: SED 18:50
DX: G89.29 Other chronic pain (principal); R10.10 Upper abdominal pain, unspecified; E87.6 Hypokalemia; D64.9 Anemia, unspecified; I10 Essential (primary) hypertension; F41.9 Anxiety disorder, unspecified; Z98.51 Tubal ligation status; Z79.899 Other long term (current) drug therapy; Z88.0 Allergy status to penicillin; Z88.6 Allergy status to analgesic agent; Z91.048 Other nonmedicinal substance allergy status
CPT/HCPCS: 36415; 80053; 81002; 81025; 83690; 85025; 96372; 99283; J2270

== ENCOUNTER 2019-02-04 14:08 | Emergency (ER) | payer MEDICAID ==
[~2019-02-04] VITALS: Ht 147.3 cm; Wt 90.7 kg
[2019-02-04 14:18] VITALS: BP_SYST 148
[2019-02-04] MEDS ORDERED: NACL 0.9% 1,000 ML IV ONE (14:30)
[2019-02-04] MEDS ORDERED: LORazepam 2 MG/ML VIAL IVP ONE (14:30)
[2019-02-04] MEDS ORDERED: ONDANSETRON HCL 4 MG/2 ML VIAL IVP ONE (14:30)
[2019-02-04] MEDS ORDERED: SUMAtriptan SUCCINATE 6 MG/0.5 ML VIAL SUBCUT ONE (14:30)
[2019-02-04] MEDS ORDERED: HYDROcodone/ACETAMIN 5-325 MG TAB (NORCO/ VICODIN) PO ONE (15:30)
[2019-02-04 16:02] VITALS: BP_SYST 136
== END 2019-02-04 16:02 | disposition home or self-care (01) ==
LOC: SED 14:08
DX: K42.9 Umbilical hernia without obstruction or gangrene (principal); G43.909 Migraine, unspecified, not intractable, without status migrainosus; I10 Essential (primary) hypertension; F32.9 Major depressive disorder, single episode, unspecified; F41.9 Anxiety disorder, unspecified; Z76.5 Malingerer [conscious simulation]; Z79.899 Other long term (current) drug therapy; Z88.0 Allergy status to penicillin; Z88.6 Allergy status to analgesic agent; Z91.048 Other nonmedicinal substance allergy status
CPT/HCPCS: 96374; 96375; 99283; J2060; J2405; J3030; J7030

== ENCOUNTER 2019-02-21 15:09 | Emergency (ER) | payer MEDICAID ==
[~2019-02-21] VITALS: Ht 147.3 cm; Wt 90.7 kg
[2019-02-21 15:45] VITALS: BP_SYST 158
[2019-02-21] MEDS ORDERED: IPRATROPIUM/ALBUTEROL SULFATE 3 ML AMPUL.NEB (DUONEB) INH ONE (17:00)
[2019-02-21] MEDS ORDERED: ACETAMINOPHEN 500 MG TABLET PO ONE (17:00)
[2019-02-21 17:45] VITALS: BP_SYST 148
== END 2019-02-21 17:45 | disposition home or self-care (01) ==
LOC: SED 15:09
DX: K42.9 Umbilical hernia without obstruction or gangrene (principal); R05 Cough; R03.0 Elevated blood-pressure reading, without diagnosis of hypertension; I10 Essential (primary) hypertension; F32.9 Major depressive disorder, single episode, unspecified; F41.9 Anxiety disorder, unspecified; Z88.0 Allergy status to penicillin; Z88.6 Allergy status to analgesic agent; Z79.899 Other long term (current) drug therapy
CPT/HCPCS: 94640; 99283

== ENCOUNTER 2019-02-27 11:19 | Emergency (ER) | payer MEDICAID ==
[~2019-02-27] VITALS: Ht 147.3 cm; Wt 113.4 kg
[2019-02-27 11:30] VITALS: BP_SYST 161
--- NOTE | 2019-02-27 11:30 | NUR ---
Patient to ER bed 8 to gown for evaluation. Side rails up.
--- NOTE | 2019-02-27 11:34 | NUR ---
ER at bedside examining patient.
--- NOTE | 2019-02-27 11:40 | NUR ---
Pt c/o exacerbation of chronic abd pain.
[2019-02-27 11:53] LABS: BASOPHILS % (AUTO) 0.4 % (0.0-2.0); EOSINOPHILS # (AUTO) 0.2 K/uL (0.0-0.4); EOSINOPHILS % (AUTO) 2.4 % (0.0-4.0); HEMATOCRIT 27.8 % (36-48); HEMOGLOBIN 8.4 g/dL (12.0-16.0); LYMPHOCYTES # (AUTO) 1.4 K/uL (1.0-5.5); MEAN CORPUSCULAR HEMOGLOBIN 21 pg (27-31); MEAN CORPUSCULAR HGB CONC 30 % (32-36); MEAN CORPUSCULAR VOLUME 68 fL (79.0-98.0); MONOCYTES # (AUTO) 0.7 K/uL (0.0-1.0); MONOCYTES % (AUTO) 9.1 % (1.7-9.3); NEUTROPHILS # (AUTO) 5.4 K/uL (1.8-7.7); NEUTROPHILS % (AUTO) 70.1 % (40.0-70.0); PLATELET COUNT (AUTO) 201 K/uL (130-430); RED CELL DISTRIBUTION WIDTH 17.5 % (9.0-15.0); WHITE BLOOD COUNT (AUTO) 7.7 K/uL (4.8-10.8)
--- NOTE | 2019-02-27 11:59 | NUR ---
Patient transported to radiology via gurney, accompanied by bag grader.
--- NOTE | 2019-02-27 12:10 | NUR ---
RETURNED FROM RADIOLOGY
[2019-02-27 12:19] LABS: BILIRUBIN,URINE NEGATIVE (NEGATIVE); BLOOD, URINE NEGATIVE (NEGATIVE); COLOR,URINE YELLOW (YELLOW); GLUCOSE,URINE NEGATIVE (NEGATIVE); KETONES,URINE NEGATIVE (NEGATIVE); LEUKOCYTE ESTERASE ,URINE TRACE (NEGATIVE); NITRITE, URINE NEGATIVE (NEGATIVE); PROTEIN URINE NEGATIVE (NEGATIVE); UROBILINOGEN,URINE 0.2 (0.2-1.0)
--- NOTE | 2019-02-27 12:23 | NUR ---
DR CARDENAS AT BEDSIDE FOR RE-EVALUATION
[2019-02-27 12:41] LABS: CALCIUM 8.4 mg/dL (8.4-11.0); CREATININE 0.59 mg/dL (0.55-1.30); POTASSIUM 3.6 mmol/L (3.5-5.1)
[2019-02-27 12:46] LABS: ALBUMIN 3.6 g/dL (3.4-4.8); TOTAL BILIRUBIN 0.2 mg/dL (0.0-1.0)
--- NOTE | 2019-02-27 12:50 | NUR ---
Pt refused meds.
--- NOTE | 2019-02-27 12:55 | NUR ---
Patient given written and verbal discharge instructions and verbalizes understanding. ER MD discussed with patient the results and treatment provided. Patient in stable condition. ID arm band removed. Rx of lisinopril and extra strength tylenol given. Patient educated on pain management and to follow up with PMD. Pain Scale 3 Opportunity for questions provided and answered. Medication side effect fact sheet provided.
[2019-02-27] MEDS ORDERED: ACETAMINOPHEN 500 MG TABLET PO ONE (13:00)
[2019-02-27 13:24] VITALS: BP_SYST 161
[2019-02-27 13:24] LABS: BACTERIA,URINE FEW /HPF (None Seen); CLARITY/URINE HAZY (CLEAR); RBC,URINE 0-3 /HPF (0-3)
[2019-02-27 13:25] LABS: MUCUS,URINE None Seen /LPF (None Seen)
== END 2019-02-27 12:55 | disposition home or self-care (01) ==
LOC: SED 11:19
DX: K43.9 Ventral hernia without obstruction or gangrene (principal); I10 Essential (primary) hypertension; F32.9 Major depressive disorder, single episode, unspecified; F41.9 Anxiety disorder, unspecified; Z88.0 Allergy status to penicillin; Z88.6 Allergy status to analgesic agent; Z88.8 Allergy status to other drugs, medicaments and biological substances; Z79.899 Other long term (current) drug therapy; Z90.49 Acquired absence of other specified parts of digestive tract
CPT/HCPCS: 36415; 80053; 81000-TC; 81025; 85025; 87086; 99284

== ENCOUNTER 2019-04-25 15:03 | Emergency (ER) | payer MEDICAID ==
[~2019-04-25] VITALS: Ht 147.3 cm; Wt 90.7 kg
[2019-04-25 15:25] VITALS: BP_SYST 155
--- NOTE | 2019-04-25 15:29 | NUR ---
Patient triaged and placed in waiting room. VSS and patient appears in no acute distress at this time. Accompanied by son, awaiting available bed, and MD notified of need for MSE.
--- NOTE | 2019-04-25 17:29 | NUR ---
ER at bedside examining patient.
--- NOTE | 2019-04-25 17:45 | NUR ---
patient bib family with cc of anxiety, no s/s of distress, denies pain and discomfort. vital sign stable, afebrile. assessment done. no other concerned noted.
[2019-04-25] MEDS ORDERED: LORazepam 1 MG TABLET PO ONE (18:00)
[2019-04-25 18:05] VITALS: BP_SYST 150
--- NOTE | 2019-04-25 18:05 | NUR ---
Patient given written and verbal discharge instructions and verbalizes understanding. ER MD SANTANA discussed with patient the results and treatment provided. Patient in stable condition. ID arm band removed. Rx of lorazepam given. Patient educated on pain management and to follow up with PMD. Pain Scale 0. Opportunity for questions provided and answered. Medication side effect fact sheet provided.
== END 2019-04-25 18:05 | disposition home or self-care (01) ==
LOC: SED 15:03
DX: F41.9 Anxiety disorder, unspecified (principal); I10 Essential (primary) hypertension; F32.9 Major depressive disorder, single episode, unspecified; Z88.0 Allergy status to penicillin; Z88.6 Allergy status to analgesic agent; Z88.8 Allergy status to other drugs, medicaments and biological substances
CPT/HCPCS: 99284

== ENCOUNTER 2019-05-09 16:09 | Emergency (ER) | payer MEDICAID ==
[~2019-05-09] VITALS: Ht 147.3 cm; Wt 92.1 kg
[2019-05-09 16:20] VITALS: BP_SYST 156
--- NOTE | 2019-05-09 17:35 | NUR ---
Patient to ER bed 1 to gown for evaluation. Side rails up.
--- NOTE | 2019-05-09 17:55 | NUR ---
pt arrives from home w/ c/o dizziness and anxiety. EKG was done while in triage and given to
--- NOTE | 2019-05-09 18:00 | NUR ---
ER Dr. Matthews at bedside examining patient.
[2019-05-09] MEDS ORDERED: MORPHINE 2 MG/ML INJ. SYRINGE IM ONE (18:15)
[2019-05-09] MEDS ORDERED: LORazepam 2 MG/ML VIAL IM ONE ×2 (18:15→19:15)
--- NOTE | 2019-05-09 18:24 | NUR ---
medicated the pt w/ Ativan and Morphine IM per MD order. Will reassess.
--- NOTE | 2019-05-09 19:25 | NUR ---
Ativan 2mg IM given per md order
[2019-05-09 19:28] VITALS: BP_SYST 128
--- NOTE | 2019-05-09 19:31 | NUR ---
Patient given written and verbal discharge instructions and verbalizes understanding. ER MD discussed with patient the results and treatment provided. Patient in stable condition. ID arm band removed. Rx of Xanax given. Patient educated on pain management and to follow up with PMD. Pain Scale 0/10. Opportunity for questions provided and answered. Medication side effect fact sheet provided.
== END 2019-05-09 19:28 | disposition home or self-care (01) ==
LOC: SED 16:09
DX: F41.9 Anxiety disorder, unspecified (principal); I10 Essential (primary) hypertension; F32.9 Major depressive disorder, single episode, unspecified; Z79.899 Other long term (current) drug therapy; Z88.0 Allergy status to penicillin; Z88.6 Allergy status to analgesic agent; Z88.8 Allergy status to other drugs, medicaments and biological substances
CPT/HCPCS: 96372; 99283; J2060; J2270; 93005

== ENCOUNTER 2019-05-17 11:46 | Emergency (ER) | payer MEDICAID ==
[~2019-05-17] VITALS: Ht 147.3 cm; Wt 99.8 kg
[2019-05-17 11:52] VITALS: BP_SYST 114
--- NOTE | 2019-05-17 12:00 | NUR ---
PT CAME TO ER FOR BACK PAIN RATING 8/10. RESTING IN [place], AO4, AWAITING .
[2019-05-17] MEDS ORDERED: NACL 0.9% 1,000 ML IV ONE (12:03)
--- NOTE | 2019-05-17 12:05 | NUR ---
ER at bedside examining patient.
[2019-05-17] MEDS ORDERED: ONDANSETRON HCL 4 MG/2 ML VIAL IVP ONE (12:15)
[2019-05-17] MEDS ORDERED: MORPHINE 4 MG/ML INJ. SYRINGE IVP ONE (12:15)
[2019-05-17 12:25] LABS: BASOPHILS # (AUTO) 0.1 K/uL (0.0-0.2); BASOPHILS % (AUTO) 0.7 % (0.0-2.0); EOSINOPHILS # (AUTO) 0.1 K/uL (0.0-0.4); EOSINOPHILS % (AUTO) 1.3 % (0.0-4.0); HEMOGLOBIN 9.4 g/dL (12.0-16.0); LYMPHOCYTES # (AUTO) 1.5 K/uL (1.0-5.5); MEAN CORPUSCULAR HEMOGLOBIN 21 pg (27-31); MEAN CORPUSCULAR HGB CONC 30 % (32-36); MEAN CORPUSCULAR VOLUME 70 fL (79.0-98.0); MONOCYTES # (AUTO) 0.7 K/uL (0.0-1.0); MONOCYTES % (AUTO) 8.3 % (1.7-9.3); NEUTROPHILS # (AUTO) 5.9 K/uL (1.8-7.7); NEUTROPHILS % (AUTO) 71.7 % (40.0-70.0); PLATELET COUNT (AUTO) 234 K/uL (130-430); RED BLOOD CELL COUNT(AUTO) 4.46 MIL/uL (4.2-6.2); RED CELL DISTRIBUTION WIDTH 19.3 % (9.0-15.0); WHITE BLOOD COUNT (AUTO) 8.3 K/uL (4.8-10.8)
[2019-05-17] MEDS ORDERED: LEVOFLOXACIN 500 MG/D5W 100 ML IV ONE ×2 (12:30→12:48)
[2019-05-17 12:38] LABS: CALCIUM 8.9 mg/dL (8.4-11.0); CREATININE 0.57 mg/dL (0.55-1.30); POTASSIUM 3.9 mmol/L (3.5-5.1)
[2019-05-17 12:43] LABS: PROTHROMBIN TIME 10.2 SECS (9.5-12.5)
[2019-05-17] MEDS ORDERED: MORPHINE SULFATE 10 MG/ML VIAL ONE (12:43)
[2019-05-17 12:44] LABS: ALBUMIN 4.2 g/dL (3.4-4.8); TOTAL BILIRUBIN 0.2 mg/dL (0.0-1.0)
--- NOTE | 2019-05-17 12:46 | NUR ---
Pt taken to radiology via wheelchair
--- NOTE | 2019-05-17 12:53 | NUR ---
Pt returned from radiology
--- NOTE | 2019-05-17 13:00 | NUR ---
PT CONSISTENTLY ASKING FOR DOSAGES OF ATIVAN AND MORPHINE. PT THEN CALLED NURSES STATION ON PHONE TO ASK FOR ATIVAN AND MORPHINE 4MG.
[2019-05-17] MEDS ORDERED: MORPHINE 2 MG/ML INJ. SYRINGE IVP ONE (13:15)
[2019-05-17] MEDS ORDERED: LORazepam 1 MG TABLET PO ONE (13:15)
--- NOTE | 2019-05-17 13:29 | NUR ---
Blood cultures drawn prior to antibiotics
[2019-05-17 13:35] LABS: BILIRUBIN,URINE NEGATIVE (NEGATIVE); BLOOD, URINE NEGATIVE (NEGATIVE); CLARITY/URINE CLOUDY (CLEAR); COLOR,URINE YELLOW (YELLOW); GLUCOSE,URINE NEGATIVE (NEGATIVE); KETONES,URINE NEGATIVE (NEGATIVE); LEUKOCYTE ESTERASE ,URINE 3+ (NEGATIVE); NITRITE, URINE NEGATIVE (NEGATIVE); PROTEIN URINE NEGATIVE (NEGATIVE); UROBILINOGEN,URINE 0.2 (0.2-1.0)
[2019-05-17 14:22] VITALS: BP_SYST 114
--- NOTE | 2019-05-17 14:22 | NUR ---
Patient given written and verbal discharge instructions and verbalizes understanding. ER MD discussed with patient the results and treatment provided. Patient in stable condition. ID arm band removed. IV catheter removed intact and dressing applied, no active bleeding. Rx of cipro, norco, zofran, colace, and motrin given. Patient educated on pain management and to follow up with PMD. Pain Scale 0/10. Opportunity for questions provided and answered. Medication side effect fact sheet provided.
[2019-05-17 14:33] LABS: BACTERIA,URINE MODERATE /HPF (None Seen); RBC,URINE 0-3 /HPF (0-3); WBC,URINE 20-50 /HPF (0-3)
== END 2019-05-17 14:22 | disposition home or self-care (01) ==
LOC: SED 11:46
DX: N39.0 Urinary tract infection, site not specified (principal); R11.10 Vomiting, unspecified; I10 Essential (primary) hypertension; F32.9 Major depressive disorder, single episode, unspecified; F41.9 Anxiety disorder, unspecified; Z88.0 Allergy status to penicillin; Z88.6 Allergy status to analgesic agent; Z88.8 Allergy status to other drugs, medicaments and biological substances; Z79.899 Other long term (current) drug therapy
CPT/HCPCS: 36415; 74176; 80053; 81000; 81025; 83690; 85025; 85610; 85730; 87040; 87086; 96361; 96365; 96375; 96376; 99284; J1956; J2270 ×2; J2405; J7030

== ENCOUNTER 2019-06-04 13:03 | Emergency (ER) | payer MEDICAID ==
[~2019-06-04] VITALS: Ht 149.9 cm; Wt 90.7 kg
[2019-06-04 13:03] VITALS: BP_SYST 151
== END 2019-06-04 14:04 | disposition left against medical advice (07) ==
LOC: SED 13:03
DX: R07.89 Other chest pain (principal); I10 Essential (primary) hypertension; F41.9 Anxiety disorder, unspecified; Z90.49 Acquired absence of other specified parts of digestive tract; Z88.0 Allergy status to penicillin; Z88.6 Allergy status to analgesic agent; Z88.8 Allergy status to other drugs, medicaments and biological substances
CPT/HCPCS: 99283

== ENCOUNTER 2019-07-04 09:55 | Emergency (ER) | payer MEDICAID ==
[~2019-07-04] VITALS: Ht 152.4 cm; Wt 81.6 kg
[2019-07-04 09:55] VITALS: BP_SYST 131
[2019-07-04] MEDS ORDERED: LORazepam 2 MG/ML VIAL IM ONE (10:15)
[2019-07-04 10:41] VITALS: BP_SYST 131
== END 2019-07-04 10:38 | disposition home or self-care (01) ==
LOC: SED 09:55
DX: F41.9 Anxiety disorder, unspecified (principal); I10 Essential (primary) hypertension; M41.9 Scoliosis, unspecified; Z79.899 Other long term (current) drug therapy; Z88.0 Allergy status to penicillin; Z88.6 Allergy status to analgesic agent; Z88.8 Allergy status to other drugs, medicaments and biological substances
CPT/HCPCS: 96372; 99283; J2060

== ENCOUNTER 2019-07-13 10:55 | Emergency (ER) | payer MEDICAID ==
[~2019-07-13] VITALS: Ht 147.3 cm; Wt 92.1 kg
[2019-07-13 10:55] VITALS: BP_SYST 142
[2019-07-13] MEDS ORDERED: ONDANSETRON HCL 4 MG/2 ML VIAL IVP ONE (11:15)
[2019-07-13] MEDS ORDERED: DIPHENHYDRAMINE INJ 50 MG/ML VIAL IVP ONE (11:15)
[2019-07-13] MEDS ORDERED: HALOPERIDOL LACTATE 5 MG/ML VIAL IM ONE (11:45)
[2019-07-13 11:48] LABS: BASOPHILS # (AUTO) 0.1 K/uL (0.0-0.2); BASOPHILS % (AUTO) 0.8 % (0.0-2.0); EOSINOPHILS # (AUTO) 0.2 K/uL (0.0-0.4); EOSINOPHILS % (AUTO) 1.8 % (0.0-4.0); HEMATOCRIT 28.5 % (36-48); HEMOGLOBIN 8.5 g/dL (12.0-16.0); LYMPHOCYTES # (AUTO) 1.7 K/uL (1.0-5.5); LYMPHOCYTES % (AUTO) 18.4 % (20.5-51.5); MEAN CORPUSCULAR HEMOGLOBIN 20 pg (27-31); MEAN CORPUSCULAR HGB CONC 30 % (32-36); MEAN CORPUSCULAR VOLUME 68 fL (79.0-98.0); MONOCYTES # (AUTO) 0.7 K/uL (0.0-1.0); MONOCYTES % (AUTO) 7.6 % (1.7-9.3); NEUTROPHILS # (AUTO) 6.5 K/uL (1.8-7.7); NEUTROPHILS % (AUTO) 71.4 % (40.0-70.0); PLATELET COUNT (AUTO) 228 K/uL (130-430); RED BLOOD CELL COUNT(AUTO) 4.21 MIL/uL (4.2-6.2); RED CELL DISTRIBUTION WIDTH 17.4 % (9.0-15.0); WHITE BLOOD COUNT (AUTO) 9.1 K/uL (4.8-10.8)
[2019-07-13 11:52] LABS: CALCIUM 8.6 mg/dL (8.4-11.0); CREATININE 0.57 mg/dL (0.55-1.30); POTASSIUM 3.7 mmol/L (3.5-5.1)
[2019-07-13 11:56] LABS: ALBUMIN 3.8 g/dL (3.4-4.8); TOTAL BILIRUBIN 0.2 mg/dL (0.0-1.0)
[2019-07-13 12:22] VITALS: BP_SYST 114
[2019-07-13 12:41] VITALS: BP_SYST 118
[2019-07-13 12:58] LABS: BILIRUBIN,URINE NEGATIVE (NEGATIVE); BLOOD, URINE NEGATIVE (NEGATIVE); CLARITY/URINE CLEAR (CLEAR); COLOR,URINE YELLOW (YELLOW); GLUCOSE,URINE NEGATIVE (NEGATIVE); KETONES,URINE NEGATIVE (NEGATIVE); LEUKOCYTE ESTERASE ,URINE NEGATIVE (NEGATIVE); NITRITE, URINE NEGATIVE (NEGATIVE); PH,URINE 6.5 (5.0-8.0); PROTEIN URINE NEGATIVE (NEGATIVE); UROBILINOGEN,URINE 0.2 (0.2-1.0)
[2019-07-13 13:24] LABS: BARBITURATE, URINE NEGATIVE (NEG <=200); BENZODIAZEPINE, URINE POSITIVE (NEG <=150); CANNABINOID, URINE NEGATIVE (NEG <=50); COCAINE, URINE NEGATIVE (NEG <=150); METHAMPHETAMINES SCREEN,URINE NEGATIVE (NEG <=500); OPIATE, URINE POSITIVE (NEG <=100); PHENCYCLIDINE SCREEN,URINE NEGATIVE (NEG <=25); URINE AMPHETAMINE NEGATIVE (NEG <=500); URINE METHADONE NEGATIVE (NEG <=200); URINE OXYCODONE SCREEN NEGATIVE (NEG <=100); URINE PROPOXYPHENE SCREEN NEGATIVE (NEG <=300)
[2019-07-13 13:25] LABS: UR TRICYCLIC ANTIDEPRESSANTS NEGATIVE (NEG <=300)
== END 2019-07-13 12:40 | disposition home or self-care (01) ==
LOC: SED 10:55
DX: R10.9 Unspecified abdominal pain (principal); F41.9 Anxiety disorder, unspecified; R11.12 Projectile vomiting; R19.7 Diarrhea, unspecified; I10 Essential (primary) hypertension; Z76.5 Malingerer [conscious simulation]; Z88.0 Allergy status to penicillin; Z88.6 Allergy status to analgesic agent; Z91.048 Other nonmedicinal substance allergy status; Z79.899 Other long term (current) drug therapy
CPT/HCPCS: 36415; 80053; 80307; 81003; 83690; 85025; 96374; 96375; 99284; J1200; J1630; J2405

== ENCOUNTER 2019-07-14 12:36 | Emergency (ER) | payer MEDICAID ==
[~2019-07-14] VITALS: Ht 147.3 cm; Wt 97.5 kg
[2019-07-14 12:47] VITALS: BP_SYST 140
[2019-07-14 16:37] VITALS: BP_SYST 146
== END 2019-07-14 16:37 | disposition home or self-care (01) ==
LOC: SED 12:36
DX: F41.9 Anxiety disorder, unspecified (principal)
CPT/HCPCS: 99281

== ENCOUNTER 2019-07-17 13:16 | Emergency (ER) | payer MEDICAID ==
[~2019-07-17] VITALS: Ht 147.3 cm; Wt 102.1 kg
[2019-07-17 13:26] VITALS: BP_SYST 160
[2019-07-17 14:28] VITALS: BP_SYST 134
== END 2019-07-17 14:28 | disposition home or self-care (01) ==
LOC: SED 13:16
DX: Z76.0 Encounter for issue of repeat prescription (principal); F41.9 Anxiety disorder, unspecified; I10 Essential (primary) hypertension; M41.9 Scoliosis, unspecified; F11.20 Opioid dependence, uncomplicated; Z88.6 Allergy status to analgesic agent; Z88.1 Allergy status to other antibiotic agents; Z88.8 Allergy status to other drugs, medicaments and biological substances
CPT/HCPCS: 99281

== ENCOUNTER 2019-07-18 09:51 | Emergency (ER) | payer MEDICAID ==
[~2019-07-18] VITALS: Ht 147.3 cm; Wt 90.7 kg
[2019-07-18 09:58] VITALS: BP_SYST 153
[2019-07-18] MEDS ORDERED: LORazepam 1 MG TABLET PO ONE (10:15)
== END 2019-07-18 10:26 | disposition home or self-care (01) ==
LOC: SED 09:51
DX: F41.0 Panic disorder [episodic paroxysmal anxiety] (principal); I10 Essential (primary) hypertension; F32.9 Major depressive disorder, single episode, unspecified; M41.9 Scoliosis, unspecified; F11.20 Opioid dependence, uncomplicated; Z88.0 Allergy status to penicillin; Z88.6 Allergy status to analgesic agent; Z88.8 Allergy status to other drugs, medicaments and biological substances
CPT/HCPCS: 99283

== ENCOUNTER 2019-07-29 10:52 | Emergency (ER) | payer MEDICAID ==
[~2019-07-29] VITALS: Ht 147.3 cm; Wt 102.1 kg
[2019-07-29 11:00] VITALS: BP_SYST 127
[2019-07-29 11:32] VITALS: BP_SYST 127
== END 2019-07-29 11:30 | disposition home or self-care (01) ==
LOC: SED 10:52
DX: R10.33 Periumbilical pain (principal); R19.7 Diarrhea, unspecified; I10 Essential (primary) hypertension; F41.9 Anxiety disorder, unspecified; F11.20 Opioid dependence, uncomplicated; K46.9 Unspecified abdominal hernia without obstruction or gangrene; Z88.0 Allergy status to penicillin; Z88.6 Allergy status to analgesic agent
CPT/HCPCS: 99283

== ENCOUNTER 2019-08-22 16:46 | Emergency (ER) | payer MEDICAID ==
[~2019-08-22] VITALS: Ht 147.3 cm; Wt 81.6 kg
[2019-08-22 16:50] VITALS: BP_SYST 131
[2019-08-22 17:10] VITALS: BP_SYST 131
[2019-08-22] MEDS ORDERED: ACETAMINOPHEN 500 MG TABLET PO ONE (17:15)
== END 2019-08-22 17:10 | disposition left against medical advice (07) ==
LOC: SED 16:46
DX: K46.9 Unspecified abdominal hernia without obstruction or gangrene (principal); F41.9 Anxiety disorder, unspecified; F19.90 Other psychoactive substance use, unspecified, uncomplicated; I10 Essential (primary) hypertension; Z88.0 Allergy status to penicillin; Z88.6 Allergy status to analgesic agent; Z88.8 Allergy status to other drugs, medicaments and biological substances
CPT/HCPCS: 99281

== ENCOUNTER 2019-09-07 10:39 | Emergency (ER) | payer MEDICAID ==
[~2019-09-07] VITALS: Ht 149.9 cm; Wt 99.8 kg
[2019-09-07 10:40] VITALS: BP_SYST 131
--- NOTE | 2019-09-07 10:40 | NUR ---
BROUGHT BACK TO BED #4 AND TRIAGED.REPORT GIVEN TO SAMEER
--- NOTE | 2019-09-07 11:04 | NUR ---
DR NAPOLES AT BEDSIDE FOR EVALUATION
[2019-09-07] MEDS ORDERED: LORazepam 1 MG TABLET PO ONE (11:15)
--- NOTE | 2019-09-07 11:23 | NUR ---
Patient given written and verbal discharge instructions and verbalizes understanding. ER MD discussed with patient the results and treatment provided. Patient in stable condition. ID arm band removed. Rx of NONE given. Patient educated on pain management and to follow up with PMD. Pain Scale 0/10. Opportunity for questions provided and answered. Medication side effect fact sheet provided.
== END 2019-09-07 11:22 | disposition home or self-care (01) ==
LOC: SED 10:39
DX: F41.9 Anxiety disorder, unspecified (principal); I10 Essential (primary) hypertension; F11.20 Opioid dependence, uncomplicated; Z88.0 Allergy status to penicillin; Z88.6 Allergy status to analgesic agent; Z88.8 Allergy status to other drugs, medicaments and biological substances
CPT/HCPCS: 99283

== ENCOUNTER 2019-09-09 12:07 | Emergency (ER) | payer MEDICAID ==
[~2019-09-09] VITALS: Ht 147.3 cm; Wt 90.7 kg
[2019-09-09 12:54] VITALS: BP_SYST 153
--- NOTE | 2019-09-09 12:59 | NUR ---
SENT TO WAITING ROOM
--- NOTE | 2019-09-09 13:15 | NUR ---
MD EVAN Salinas at bedside examining patient.
--- NOTE | 2019-09-09 13:20 | NUR ---
Pt here L lower abdominal pain causing anxiety x two days. Pt reports taking percocet 5 mg this morning w/ no relief. Pt states having sleep deprivation due to the pain. Pt states running out of medication. Patient reports diarrhea x today.
--- NOTE | 2019-09-09 14:00 | NUR ---
Patient transported to radiology via wheelchair, accompanied by geoscience technician.
[2019-09-09 15:00] LABS: BASOPHILS # (AUTO) 0.1 K/uL (0.0-0.2); BASOPHILS % (AUTO) 0.7 % (0.0-2.0); EOSINOPHILS # (AUTO) 0.2 K/uL (0.0-0.4); HEMOGLOBIN 8.4 g/dL (12.0-16.0); LYMPHOCYTES # (AUTO) 1.6 K/uL (1.0-5.5); MONOCYTES # (AUTO) 0.7 K/uL (0.0-1.0)
[2019-09-09 15:05] LABS: EOSINOPHILS % (AUTO) 1.8 % (0.0-4.0); HEMATOCRIT 28.1 % (36-48); MEAN CORPUSCULAR HEMOGLOBIN 20 pg (27-31); MEAN CORPUSCULAR HGB CONC 30 % (32-36); MEAN CORPUSCULAR VOLUME 66 fL (79.0-98.0); NEUTROPHILS # (AUTO) 7.4 K/uL (1.8-7.7); NEUTROPHILS % (AUTO) 74.5 % (40.0-70.0); PLATELET COUNT (AUTO) 242 K/uL (130-430); RED BLOOD CELL COUNT(AUTO) 4.28 MIL/uL (4.2-6.2); RED CELL DISTRIBUTION WIDTH 17.8 % (9.0-15.0); WHITE BLOOD COUNT (AUTO) 9.9 K/uL (4.8-10.8)
[2019-09-09 15:08] LABS: CALCIUM 8.2 mg/dL (8.4-11.0); CREATININE 0.65 mg/dL (0.55-1.30); POTASSIUM 3.3 mmol/L (3.5-5.1)
[2019-09-09 15:23] LABS: ALBUMIN 3.5 g/dL (3.4-4.8); TOTAL BILIRUBIN 0.1 mg/dL (0.0-1.0)
[2019-09-09 15:58] VITALS: BP_SYST 111
--- NOTE | 2019-09-09 15:58 | NUR ---
Patient given written and verbal discharge instructions and verbalizes understanding. ER MD discussed with patient the results and treatment provided. Patient in stable condition. ID arm band removed. Rx of Klonopin 2mg and Metoprolol 100mg given. Patient educated on pain management and to follow up with PMD. Pain Scale 0/10. Opportunity for questions provided and answered. Medication side effect fact sheet provided.
== END 2019-09-09 15:58 | disposition home or self-care (01) ==
LOC: SED 12:07
DX: D50.0 Iron deficiency anemia secondary to blood loss (chronic) (principal); R10.32 Left lower quadrant pain; I10 Essential (primary) hypertension; F41.9 Anxiety disorder, unspecified; F11.20 Opioid dependence, uncomplicated; Z90.49 Acquired absence of other specified parts of digestive tract; Z88.0 Allergy status to penicillin; Z88.6 Allergy status to analgesic agent; Z88.8 Allergy status to other drugs, medicaments and biological substances
CPT/HCPCS: 36415; 80053; 81025; 82150-TC; 83605; 83690-TC; 84703; 85025; 99284; J7030

== ENCOUNTER 2019-09-11 17:54 | Emergency (ER) | payer MEDICAID ==
[~2019-09-11] VITALS: Ht 147.3 cm; Wt 99.8 kg
[2019-09-11 18:00] VITALS: BP_SYST 142
--- NOTE | 2019-09-11 18:00 | NUR ---
BROUGHT BACK TO BED #5 AND TRIAGED. REPORT GIVEN TO ABDULLAHI
--- NOTE | 2019-09-11 18:10 | NUR ---
Pt. presents to the ED ambulatory and A&Ox4 with c/o of chest pain that is 8/10 and intermittent and sharp in nature. Pt. states that she had two syncopal episodes earlier today, has accompanying left leg pain, and nausea. Pt. denies fever, vomiting, and other symptoms. Pt. appears anxious but is not distressed. VSS. Will continue to monitor pt.
--- NOTE | 2019-09-11 18:15 | NUR ---
at bedside examining pt.
--- NOTE | 2019-09-11 18:27 | NUR ---
DMV Report filed and faxed to [phone].
[2019-09-11] MEDS ORDERED: HYDROcodone/ACETAMIN 10-325 MG TAB PO ONE (19:00)
[2019-09-11] MEDS ORDERED: NACL 0.9% 1,000 ML IV ONE (19:15)
[2019-09-11 19:20] LABS: BASOPHILS % (AUTO) 0.3 % (0.0-2.0); EOSINOPHILS # (AUTO) 0.1 K/uL (0.0-0.4); EOSINOPHILS % (AUTO) 1.3 % (0.0-4.0); HEMOGLOBIN 7.7 g/dL (12.0-16.0); LYMPHOCYTES # (AUTO) 1.4 K/uL (1.0-5.5); LYMPHOCYTES % (AUTO) 17.6 % (20.5-51.5); MEAN CORPUSCULAR HEMOGLOBIN 20 pg (27-31); MEAN CORPUSCULAR HGB CONC 30 % (32-36); MEAN CORPUSCULAR VOLUME 66 fL (79.0-98.0); MONOCYTES # (AUTO) 0.5 K/uL (0.0-1.0); MONOCYTES % (AUTO) 5.8 % (1.7-9.3); PLATELET COUNT (AUTO) 243 K/uL (130-430); RED BLOOD CELL COUNT(AUTO) 3.95 MIL/uL (4.2-6.2); RED CELL DISTRIBUTION WIDTH 17.6 % (9.0-15.0)
[2019-09-11 19:38] LABS: CALCIUM 8.4 mg/dL (8.4-11.0); CREATININE 0.75 mg/dL (0.55-1.30); POTASSIUM 3.8 mmol/L (3.5-5.1)
[2019-09-11 19:43] LABS: ALBUMIN 3.5 g/dL (3.4-4.8); TOTAL BILIRUBIN 0.3 mg/dL (0.0-1.0)
--- NOTE | 2019-09-11 20:19 | NUR ---
Patient yelling and screaming from room complaining of dizziness and headache. Patient states "I need [place] for pain and I need to be admitted for one day to the hospital." Patient informed that labs are still running at this time. MD will review them and discuss the results when they are resulted.
--- NOTE | 2019-09-11 20:27 | NUR ---
Patient states that she will go home if she is given Morphine. notified
[2019-09-11] MEDS ORDERED: ACETAMINOPHEN 500 MG TABLET PO ONE (20:30)
--- NOTE | 2019-09-11 20:32 | NUR ---
Patient reports her father in law is in the parking lot to drive her home.
[2019-09-11 20:50] VITALS: BP_SYST 142
== END 2019-09-11 20:50 | disposition home or self-care (01) ==
LOC: SED 17:54
DX: G89.29 Other chronic pain (principal); R51 Headache; R07.9 Chest pain, unspecified; R42 Dizziness and giddiness; I10 Essential (primary) hypertension; Z88.0 Allergy status to penicillin; Z88.6 Allergy status to analgesic agent; Z88.8 Allergy status to other drugs, medicaments and biological substances
CPT/HCPCS: 36415; 71045; 80053; 82550; 83880; 84484; 85025; 93005; 96360; 99285; J7030

== ENCOUNTER 2019-09-12 09:38 | Emergency (ER) | payer MEDICAID ==
[~2019-09-12] VITALS: Ht 152.4 cm; Wt 104.3 kg
[2019-09-12 09:38] VITALS: BP_SYST 118
--- NOTE | 2019-09-12 09:38 | NUR ---
Placed in room 4. Placed on vehicle monitor technician, blood pressure machine and pulse oximeter. To gown for exam. Side rails up. Report given to CATARINO Pryor.
--- NOTE | 2019-09-12 09:38 | NUR ---
Pt bib ambulance with c/o abd pain and n/v. Pt was here in ER yesterday for same issue. Reports being picked up at [facility] because she isn't treated right there. V/S stable, pt is afebrile. Currently resting in bed, will continue to monitor.
--- NOTE | 2019-09-12 09:40 | NUR ---
ER Dr. Bernardo at bedside examining patient.
--- NOTE | 2019-09-12 09:50 | NUR ---
Patient given written and verbal discharge instructions and verbalizes understanding. ER MD discussed with patient the results and treatment provided. Patient in stable condition. ID arm band removed. Patient educated on pain management and to follow up with PMD. Pain Scale 3. Opportunity for questions provided and answered. Medication side effect fact sheet provided.
[2019-09-12 09:56] VITALS: BP_SYST 118
--- NOTE | 2019-09-12 10:02 | NUR ---
HAD LONG TALK WITH BATSHEVA REEVES, AFTER GETTING A CALL FROM SHELLEY THAT SHE WANTED TO CALL 911 TO GO TO ANOTHER HOSPITAL. BATSHEVA AWARE OF DRUG PROBLEMS AND STATES SHE NEEDS DRUG REHAB, EXPLAINED TO PT TO SEE ABOUT [facility]. PT STATES SHE AGREES SHE NEEDS HELP. 911 NOT CALLED BY SHELLEY COREY, PT CALLED FATHER IN LAW FOR TRANSPORT TO HOME/REHAB.
--- NOTE | 2019-09-12 10:12 | NUR ---
TALKED TO PT AGAIN ABOUT DRUG REHAB, ASKED IF SHE WANTS ME TO SPEAK TO HER FATHER IN LAW, PT STATES "THAT'S OK, THEY KNOW I'M A DRUG ADDICT." PT STATES FATHER IN LAW EN ROUTE TO PICK HER UP AT THIS TIME.
== END 2019-09-12 09:56 | disposition home or self-care (01) ==
LOC: SED 09:38
DX: F41.9 Anxiety disorder, unspecified (principal); R10.30 Lower abdominal pain, unspecified; I10 Essential (primary) hypertension; Z88.0 Allergy status to penicillin; Z88.6 Allergy status to analgesic agent; Z88.8 Allergy status to other drugs, medicaments and biological substances
CPT/HCPCS: 99283

== ENCOUNTER 2019-09-28 02:40 | Emergency (ER) | payer MEDICAID ==
[~2019-09-28] VITALS: Ht 147.3 cm; Wt 90.7 kg
[2019-09-28 02:45] VITALS: BP_SYST 154
[2019-09-28] MEDS: HYDROcodone/ACETAMIN 5-325 MG TAB (NORCO/ VICODIN) PO ONE (03:49)
[2019-09-28 03:52] VITALS: BP_SYST 145
== END 2019-09-28 03:52 | disposition left against medical advice (07) ==
LOC: SED 02:40
DX: R10.84 Generalized abdominal pain (principal); F41.9 Anxiety disorder, unspecified; I10 Essential (primary) hypertension; F11.20 Opioid dependence, uncomplicated; Z79.899 Other long term (current) drug therapy; Z88.0 Allergy status to penicillin; Z88.6 Allergy status to analgesic agent; Z88.8 Allergy status to other drugs, medicaments and biological substances
CPT/HCPCS: 99283

== ENCOUNTER 2019-10-05 11:18 | Emergency (ER) | payer MEDICAID ==
[~2019-10-05] VITALS: Ht 149.9 cm; Wt 90.7 kg
--- NOTE | 2019-10-05 11:40 | NUR ---
PATIENT TO ER #2 AND PLACED ON GROUP SALES COORDINATOR, SAO2, ABP
[2019-10-05 11:45] VITALS: BP_SYST 136
[2019-10-05] MEDS ORDERED: METO100C PO (11:45)
[2019-10-05] MEDS ORDERED: OXYC-130 PO (11:45)
[2019-10-05] MEDS ORDERED: LORazepam 2 MG/ML VIAL IM ONE (12:00)
--- NOTE | 2019-10-05 12:00 | NUR ---
pt arrives from home w/ c/o anxiety that began at 0300 today. No other c/o at the moment. VVS. Will continue to monitor
--- NOTE | 2019-10-05 12:16 | NUR ---
Medicated the ,pt w/ Ativan per order. Will reassess
--- NOTE | 2019-10-05 12:21 | NUR ---
Patient given written and verbal discharge instructions and verbalizes understanding. ER MD discussed with patient the results and treatment provided. Patient in stable condition. ID arm band removed. Rx of Citalopram given. Patient educated on pain management and to follow up with PMD. Pain Scale 0/10. Opportunity for questions provided and answered. Medication side effect fact sheet provided. Addendum: 10/05/19 at 1225 by MARGARITA primitivo'mihaela pt w/ responsible adult
[2019-10-05 12:24] VITALS: BP_SYST 136
== END 2019-10-05 12:21 | disposition home or self-care (01) ==
LOC: SED 11:18
DX: F41.9 Anxiety disorder, unspecified (principal); R06.4 Hyperventilation; I10 Essential (primary) hypertension; F11.20 Opioid dependence, uncomplicated; Z88.0 Allergy status to penicillin; Z88.6 Allergy status to analgesic agent; Z88.8 Allergy status to other drugs, medicaments and biological substances
CPT/HCPCS: 96372; 99283; J2060

== ENCOUNTER 2019-10-07 10:20 | Emergency (ER) | payer MEDICAID ==
[~2019-10-07] VITALS: Ht 149.9 cm; Wt 86.2 kg
[~2019-10-07 10:20] MED LIST changes: -ATEN50TA PO; +METO100C PO; +OXYC-130 PO; -OXYC-133; -ZOLP10TA2 PO; -[UNRECOGNIZED DRUG - CODE]
[2019-10-07] MEDS ORDERED: ZOLP5TAB2 PO (10:34)
[2019-10-07] MEDS ORDERED: TRAM50TA2 PO (10:34)
[2019-10-07] MEDS ORDERED: LORA2TAB95 PO (10:34)
[2019-10-07 10:35] VITALS: BP_SYST 123
[2019-10-07 10:40] VITALS: BP_SYST 123
== END 2019-10-07 10:40 | disposition home or self-care (01) ==
LOC: SED 10:20
DX: F41.9 Anxiety disorder, unspecified (principal); I10 Essential (primary) hypertension; F11.20 Opioid dependence, uncomplicated; Z88.0 Allergy status to penicillin; Z88.6 Allergy status to analgesic agent; Z88.8 Allergy status to other drugs, medicaments and biological substances
CPT/HCPCS: 99283

== ENCOUNTER 2019-10-26 11:54 | Emergency (ER) | payer MEDICAID ==
[~2019-10-26] VITALS: Ht 147.3 cm; Wt 89.8 kg
[~2019-10-26 11:54] MED LIST changes: +LORA2TAB95 PO; -OXYC-130 PO; +TRAM50TA2 PO; +ZOLP5TAB2 PO
--- NOTE | 2019-10-26 12:05 | NUR ---
Pt walked in to ER with c/o abd pain, 11/27. Reports she is taking oxycodone prescribed by her pain management doctor but it makes her sick and she would like a prescription for tramadol. V/S stable, pt is afebrile. Currently waiting in chair, will continue to monitor.
--- NOTE | 2019-10-26 12:15 | NUR ---
ER Dr. Molina at bedside examining patient.
[2019-10-26] MEDS ORDERED: ACETAMINOPHEN 500 MG TABLET PO ONE (13:00)
--- NOTE | 2019-10-26 13:05 | NUR ---
Patient given written and verbal discharge instructions and verbalizes understanding. ER MD discussed with patient the results and treatment provided. Patient in stable condition. ID arm band removed. Rx of Tylenol given. Patient educated on pain management and to follow up with PMD. Pain Scale 3. Opportunity for questions provided and answered. Medication side effect fact sheet provided.
== END 2019-10-26 13:05 | disposition home or self-care (01) ==
LOC: SED 11:54
DX: G89.29 Other chronic pain (principal); M54.9 Dorsalgia, unspecified; I10 Essential (primary) hypertension; F41.9 Anxiety disorder, unspecified; F19.90 Other psychoactive substance use, unspecified, uncomplicated; Z88.0 Allergy status to penicillin; Z88.6 Allergy status to analgesic agent; Z88.8 Allergy status to other drugs, medicaments and biological substances; Z79.899 Other long term (current) drug therapy
CPT/HCPCS: 99282

== ENCOUNTER 2019-10-28 14:06 | Emergency (ER) | payer MEDICAID ==
[~2019-10-28] VITALS: Ht 152.4 cm; Wt 81.6 kg
[2019-10-28 14:06] VITALS: BP_SYST 110
--- NOTE | 2019-10-28 14:06 | NUR ---
Patient triaged and placed in waiting room. VSS and patient appears in no acute distress at this time. Awaiting available bed, and MD notified of need for MSE.
--- NOTE | 2019-10-28 14:07 | NUR ---
Patient came from home via BLS for evaluation of abdominal pain.
--- NOTE | 2019-10-28 15:02 | NUR ---
ER in triage examining patient.
[2019-10-28 16:18] LABS: EOSINOPHILS # (AUTO) 0.1 K/uL (0.0-0.4); HEMOGLOBIN 8.2 g/dL (12.0-16.0); LYMPHOCYTES # (AUTO) 1.1 K/uL (1.0-5.5); MONOCYTES # (AUTO) 0.6 K/uL (0.0-1.0); RED BLOOD CELL COUNT(AUTO) 4.43 MIL/uL (4.2-6.2)
[2019-10-28 16:24] LABS: BASOPHILS % (AUTO) 0.5 % (0.0-2.0); CALCIUM 9.4 mg/dL (8.4-11.0); CREATININE 0.7 mg/dL (0.55-1.30); EOSINOPHILS % (AUTO) 0.7 % (0.0-4.0); HEMATOCRIT 28.5 % (36-48); LYMPHOCYTES % (AUTO) 14.5 % (20.5-51.5); MEAN CORPUSCULAR HEMOGLOBIN 19 pg (27-31); MEAN CORPUSCULAR HGB CONC 29 % (32-36); MEAN CORPUSCULAR VOLUME 64 fL (79.0-98.0); MONOCYTES % (AUTO) 7.7 % (1.7-9.3); NEUTROPHILS % (AUTO) 76.6 % (40.0-70.0); PLATELET COUNT (AUTO) 287 K/uL (130-430); RED CELL DISTRIBUTION WIDTH 17.9 % (9.0-15.0); WHITE BLOOD COUNT (AUTO) 7.8 K/uL (4.8-10.8)
[2019-10-28 16:30] LABS: ALBUMIN 3.7 g/dL (3.4-4.8); TOTAL BILIRUBIN 0.2 mg/dL (0.0-1.0)
[2019-10-28 16:34] LABS: INR 1.1 (0.8-1.2); PROTHROMBIN TIME 10.6 SECS (9.5-12.5)
[2019-10-28 18:36] VITALS: BP_SYST 110
--- NOTE | 2019-10-28 18:36 | NUR ---
Patient given written and verbal discharge instructions and verbalizes understanding. ER MD discussed with patient the results and treatment provided. Patient in stable condition. ID arm band removed. Rx of ultram given. Patient educated on pain management and to follow up with PMD. Pain Scale 0/10. Opportunity for questions provided and answered. Medication side effect fact sheet provided.
== END 2019-10-28 18:36 | disposition home or self-care (01) ==
LOC: SED 14:06
DX: K46.9 Unspecified abdominal hernia without obstruction or gangrene (principal); I10 Essential (primary) hypertension; F41.9 Anxiety disorder, unspecified; F11.20 Opioid dependence, uncomplicated; Z79.899 Other long term (current) drug therapy; Z88.0 Allergy status to penicillin; Z88.8 Allergy status to other drugs, medicaments and biological substances; Z88.6 Allergy status to analgesic agent
CPT/HCPCS: 36415; 74018; 80053; 82150-TC; 83605; 83615-TC; 83690-TC; 84703; 85025; 85610-TC; 85730-TC; 99284

== ENCOUNTER 2019-11-01 06:12 | Emergency (ER) | payer MEDICAID ==
[2019-11-01 06:15] VITALS: BP_SYST 162
--- NOTE | 2019-11-01 06:15 | NUR ---
JANETT CALLED MULTIPLE TIMES TO COME AND WAND PT.
--- NOTE | 2019-11-01 06:15 | NUR ---
Patient to ER bed 5 to gown for evaluation. Side rails up. Report given to Aldair.
--- NOTE | 2019-11-01 06:16 | NUR ---
PT BIB BLS C/O OF ABDOMINAL PAIN 01/27. PT WAS BROUGHT FROM [facility] AFTER SHE CALLED 911 DUE TO ABDOMINAL PAIN. PT WAS AT [facility] THIS MORNING FOR ABDOMINAL PAIN AND SUICIDAL IDEATION. PT WAS PUT ON 5150 BY [place] [employer]. PT WAS ACCEPTED AT [place] AND TAKEN THERE AFTER SHE WAS DISCHARGED AT [facility].
--- NOTE | 2019-11-01 06:16 | NUR ---
ER Dr. Gillespie at bedside examining patient.
--- NOTE | 2019-11-01 06:16 | NUR ---
PT PLACED ON 5150 BY [place] [employer] AT 0508 ON 11/01/2019 BECAUSE SHE CONTACTED POLICE DEPARTMENT AND STATED SHE WAS SUICIDAL AND STATED SHE WOULD CUT HERSELF OR JUMP INTO TRAFFIC. ORIGINAL COPY OF 5150 HOLD SIGNED BY DEPUTY BRENDEN COLINDRES #[id number]
--- NOTE | 2019-11-01 06:17 | NUR ---
Patient placed on suicide precautions. Patient placed in room within close proximity to nurses' station for closer observation and monitoring. All clothing removed, placed in hospital gown. Metal detector wand used to further screen patient of any potential hazardous belongings. All belongings inventoried, placed in bags and removed from room. Cabinets locked. BP and pulse oximeter cords, and professor of social work leads removed.
--- NOTE | 2019-11-01 06:24 | NUR ---
PT SCREAMING AT TOP OF LUNGS BECAUSE SHE IS IN PAIN AND HAVING ANXIETY AND WANTS ATIVAN OR NARCOTICS.
--- NOTE | 2019-11-01 06:50 | NUR ---
DENSITY CONTROL PUNCHER TRIED TO TAKE PT TO CT SCAN AND PT WASNT COOPERATING.
[2019-11-01 06:55] LABS: BILIRUBIN,URINE NEGATIVE (NEGATIVE); BLOOD, URINE NEGATIVE (NEGATIVE); CLARITY/URINE CLOUDY (CLEAR); COLOR,URINE YELLOW (YELLOW); GLUCOSE,URINE NEGATIVE (NEGATIVE); KETONES,URINE NEGATIVE (NEGATIVE); LEUKOCYTE ESTERASE ,URINE 2+ (NEGATIVE); NITRITE, URINE NEGATIVE (NEGATIVE); PROTEIN URINE NEGATIVE (NEGATIVE); UROBILINOGEN,URINE 0.2 (0.2-1.0)
[2019-11-01 07:00] LABS: BACTERIA,URINE MODERATE /HPF (None Seen); RBC,URINE 0-3 /HPF (0-3)
[2019-11-01 07:04] LABS: BARBITURATE, URINE NEGATIVE (NEG <=200); BENZODIAZEPINE, URINE POSITIVE (NEG <=150); CANNABINOID, URINE NEGATIVE (NEG <=50); COCAINE, URINE NEGATIVE (NEG <=150); METHAMPHETAMINES SCREEN,URINE NEGATIVE (NEG <=500); OPIATE, URINE NEGATIVE (NEG <=100); PHENCYCLIDINE SCREEN,URINE NEGATIVE (NEG <=25); UR TRICYCLIC ANTIDEPRESSANTS NEGATIVE (NEG <=300); URINE AMPHETAMINE NEGATIVE (NEG <=500); URINE METHADONE NEGATIVE (NEG <=200); URINE OXYCODONE SCREEN NEGATIVE (NEG <=100); URINE PROPOXYPHENE SCREEN NEGATIVE (NEG <=300)
--- NOTE | 2019-11-01 07:26 | NUR ---
REPORT GIVEN TO CATARINO ROGERS FOR CONTINUATION OF CARE.
--- NOTE | 2019-11-01 07:26 | NUR ---
Patient transported to radiology via WHEELCHAIR, accompanied by STAFF.
[2019-11-01] MEDS ORDERED: DIPHENHYDRAMINE HCL 25 MG CAPSULE PO ONE (08:00)
[2019-11-01] MEDS ORDERED: NITROFURANTOIN MONOHYD/M-CRYST 100 MG CAPSULE PO ONE (08:00)
[2019-11-01] MEDS ORDERED: ACETAMINOPHEN 500 MG TABLET PO ONE (08:15)
[2019-11-01] MEDS ORDERED: ACETAMINOPHEN 325 MG TABLET ONE (08:22)
--- NOTE | 2019-11-01 08:40 | NUR ---
[facility] CALLED TO TRANSFER PT TO [facility]
--- NOTE | 2019-11-01 08:50 | NUR ---
Report given to Santiago Christianson by CATARINO Carey. Accepting MD is Dr. Suero. Pt will go to Intake, Building I
--- NOTE | 2019-11-01 09:55 | NUR ---
[facility] HERE TO TRANSFER DETAILED REPORT GIVEN TO HARVEY MARIA QUESTIONS ANSWERED
--- NOTE | 2019-11-01 10:18 | NUR ---
PATIENT TRANSFERED TO [facility] WITH [facility] *BELONGINGS WITH PATIENT*
--- NOTE | 2019-11-01 10:18 | NUR ---
DISCHARGE INSTRUCTIONS GIVEN TO EMT'S AND PATIENT, SCRIPT X2 INCLUDED PT VOICED UNDERSTANDING OF INSTRUCTIONS
[2019-11-01 10:19] VITALS: BP_SYST 117
== END 2019-11-01 10:18 ==
LOC: SED 06:12
DX: K45.8 Other specified abdominal hernia without obstruction or gangrene (principal); R45.851 Suicidal ideations; N39.0 Urinary tract infection, site not specified; F41.9 Anxiety disorder, unspecified; F10.20 Alcohol dependence, uncomplicated; I10 Essential (primary) hypertension; Z79.899 Other long term (current) drug therapy; Z88.0 Allergy status to penicillin; Z88.8 Allergy status to other drugs, medicaments and biological substances; Z88.6 Allergy status to analgesic agent
CPT/HCPCS: 74176; 81000; 80307; 87086; 99285; Q0163

== ENCOUNTER 2019-11-18 09:47 | Emergency (ER) | payer MEDICAID ==
[~2019-11-18] VITALS: Ht 149.9 cm; Wt 74.8 kg
[2019-11-18 09:57] VITALS: BP_SYST 161
[2019-11-18 10:16] VITALS: BP_SYST 161
== END 2019-11-18 10:16 | disposition home or self-care (01) ==
LOC: SED 09:47
DX: F41.9 Anxiety disorder, unspecified (principal); I10 Essential (primary) hypertension; F11.20 Opioid dependence, uncomplicated; Z90.49 Acquired absence of other specified parts of digestive tract; Z88.0 Allergy status to penicillin; Z88.6 Allergy status to analgesic agent; Z88.8 Allergy status to other drugs, medicaments and biological substances
CPT/HCPCS: 99283

== ENCOUNTER 2020-01-12 11:01 | Emergency (ER) | payer MEDICAID ==
[~2020-01-12] VITALS: Ht 144.8 cm; Wt 89.4 kg
[2020-01-12 11:14] VITALS: BP_SYST 142
--- NOTE | 2020-01-12 11:25 | NUR ---
RECEIVED AND IN ROOM 7 BABAR TO ASSUME CARE. STEADY GAIT
--- NOTE | 2020-01-12 11:30 | NUR ---
DR ROSARIO IN TO ASSESS
--- NOTE | 2020-01-12 11:35 | NUR ---
ANXIOUS, CLEAR MENTATION, RESP UNLABORED, SKIN WARM AND DRY. STEADY GAIT. DENIES CP/SOB HERE FOR C/O ANXIETY AND NEEDING MED REFILL
[2020-01-12] MEDS: LORazepam 1 MG TABLET PO ONE (11:36)
[2020-01-12 11:50] VITALS: BP_SYST 142
--- NOTE | 2020-01-12 11:55 | NUR ---
Patient given written and verbal discharge instructions and verbalizes understanding. ER MD discussed with patient the results and treatment provided. Patient in stable condition. ID arm band removed. Patient educated on pain management and to follow up with PMD. Pain Scale Opportunity for questions provided and answered. Medication side effect fact sheet provided.
== END 2020-01-12 11:55 | disposition home or self-care (01) ==
LOC: SED 11:01
DX: F41.9 Anxiety disorder, unspecified (principal); I10 Essential (primary) hypertension; F10.129 Alcohol abuse with intoxication, unspecified; Z79.899 Other long term (current) drug therapy; Z88.0 Allergy status to penicillin; Z88.8 Allergy status to other drugs, medicaments and biological substances
CPT/HCPCS: 99283

== ENCOUNTER 2020-01-13 09:57 | Emergency (ER) | payer MEDICAID ==
[~2020-01-13] VITALS: Ht 144.8 cm; Wt 90.7 kg
--- NOTE | 2020-01-13 09:57 | NUR ---
Patient to ER bed 8 to gown for evaluation. Side rails up.
--- NOTE | 2020-01-13 10:00 | NUR ---
Pt walked in to ER with c/o chest tightness and anxiety attack. Reports she ran out of her soma and xanax and doesn't see her doctor until next week. V/S stable, pt is afebrile. Currently resting in bed, will continue to monitor.
--- NOTE | 2020-01-13 10:05 | NUR ---
EVAN Lacey at bedside examining patient.
[2020-01-13 10:08] VITALS: BP_SYST 140
[2020-01-13] MEDS: LORazepam 1 MG TABLET PO ONE (10:20)
--- NOTE | 2020-01-13 10:45 | NUR ---
Patient given written and verbal discharge instructions and verbalizes understanding. ER MD discussed with patient the results and treatment provided. Patient in stable condition. ID arm band removed. No prescriptions given. Patient educated on pain management and to follow up with PMD. Pain Scale 0. Opportunity for questions provided and answered. Medication side effect fact sheet provided.
[2020-01-13 11:42] VITALS: BP_SYST 140
== END 2020-01-13 10:45 | disposition home or self-care (01) ==
LOC: SED 09:57
DX: F41.9 Anxiety disorder, unspecified (principal); I10 Essential (primary) hypertension; F10.129 Alcohol abuse with intoxication, unspecified; Z79.899 Other long term (current) drug therapy; Z88.0 Allergy status to penicillin; Z88.6 Allergy status to analgesic agent; Z88.8 Allergy status to other drugs, medicaments and biological substances
CPT/HCPCS: 99283

== ENCOUNTER 2020-01-18 14:19 | Emergency (ER) | payer MEDICAID ==
[~2020-01-18] VITALS: Ht 144.8 cm; Wt 90.7 kg
[2020-01-18 14:29] VITALS: BP_SYST 133
[2020-01-18] MEDS ORDERED: NACL 0.9% 1,000 ML IV ONE (14:58)
[2020-01-18] MEDS ORDERED: CLOPIDOGREL BISULFATE 75 MG TABLET PO ONE (15:00)
[2020-01-18 15:44] LABS: BASOPHILS # (AUTO) 0.1 K/uL (0.0-0.2); BASOPHILS % (AUTO) 0.6 % (0.0-2.0); EOSINOPHILS % (AUTO) 0.3 % (0.0-4.0); HEMATOCRIT 33.2 % (36-48); HEMOGLOBIN 9.7 g/dL (12.0-16.0); LYMPHOCYTES # (AUTO) 0.8 K/uL (1.0-5.5); LYMPHOCYTES % (AUTO) 8.1 % (20.5-51.5); MEAN CORPUSCULAR HEMOGLOBIN 19 pg (27-31); MEAN CORPUSCULAR HGB CONC 29 % (32-36); MEAN CORPUSCULAR VOLUME 64 fL (79.0-98.0); MONOCYTES # (AUTO) 0.3 K/uL (0.0-1.0); MONOCYTES % (AUTO) 2.7 % (1.7-9.3); NEUTROPHILS # (AUTO) 8.9 K/uL (1.8-7.7); NEUTROPHILS % (AUTO) 88.3 % (40.0-70.0); PLATELET COUNT (AUTO) 248 K/uL (130-430); RED BLOOD CELL COUNT(AUTO) 5.21 MIL/uL (4.2-6.2); WHITE BLOOD COUNT (AUTO) 10.1 K/uL (4.8-10.8)
[2020-01-18] MEDS ORDERED: MORPHINE 2 MG/ML INJ. SYRINGE IVP ONE (15:45)
[2020-01-18 16:09] LABS: ALANINE AMINOTRANSFERASE 15 U/L (12-78); ALBUMIN 4.1 g/dL (3.4-4.8); ANION GAP 7 (5-15); ASPARTATE AMINOTRANSFERASE 19 U/L (10-37); CALCIUM 9.2 mg/dL (8.4-11.0); CHLORIDE 100 mmol/L (98-107); CREATININE 0.68 mg/dL (0.55-1.30); GLUCOSE 102 mg/dL (70-99); POTASSIUM 4.6 mmol/L (3.5-5.1); SODIUM SERUM 136 mmol/L (136-145); TOTAL BILIRUBIN 0.3 mg/dL (0.0-1.0); UREA NITROGEN, BLOOD 9 mg/dL (8-21)
[2020-01-18 16:11] LABS: GFR AFRICAN AMERICAN 123 mL/min (>90)
[2020-01-18 18:39] VITALS: BP_SYST 152
== END 2020-01-18 18:39 | disposition home or self-care (01) ==
LOC: SED 14:19
DX: G89.4 Chronic pain syndrome (principal); I10 Essential (primary) hypertension; F41.9 Anxiety disorder, unspecified; F10.129 Alcohol abuse with intoxication, unspecified; Z90.49 Acquired absence of other specified parts of digestive tract; Z79.899 Other long term (current) drug therapy; Z88.0 Allergy status to penicillin; Z88.6 Allergy status to analgesic agent
CPT/HCPCS: 36415; 71045; 74176; 80053; 84484; 85025; 93005; 96361; 96374; 99285; J2270; J7030

== ENCOUNTER 2020-02-08 10:25 | Emergency (ER) | payer MEDICAID ==
[~2020-02-08] VITALS: Ht 147.3 cm; Wt 81.6 kg
--- NOTE | 2020-02-08 10:30 | NUR ---
Patient triaged and placed in waiting room. VSS and patient appears in no acute distress at this time. Accompanied by self, awaiting available bed, and MD notified of need for MSE.
[2020-02-08 10:32] VITALS: BP_SYST 180
--- NOTE | 2020-02-08 10:50 | NUR ---
Dr Adam evaluating patient at triage room
--- NOTE | 2020-02-08 10:55 | NUR ---
Pt brought by self, A&Ox4, pt presents to ER with anxiety/panic attacks, also requesting a Rx refill for anxiety medication, skin pink and warm , cap refill <3.
[2020-02-08 11:16] VITALS: BP_SYST 180
--- NOTE | 2020-02-08 11:17 | NUR ---
Note madeline in EDM - 02/08/20 at 1118 by [email or web address] Patient given written and verbal discharge instructions and verbalizes understanding. ER discussed with patient the results and treatment provided. Patient in stable condition. ID arm band removed. IV catheter removed intact and dressing applied, no active bleeding. Rx of Ativan and ambien given. Patient educated on pain management and to follow up with PMD. Pain Scale 0/10. Opportunity for questions provided and answered. Medication side effect fact sheet provided.
--- NOTE | 2020-02-08 11:17 | NUR ---
Patient given written and verbal discharge instructions and verbalizes understanding. ER MD discussed with patient the results and treatment provided. Patient in stable condition. ID arm band removed. Rx of Ativan and ambien given. Patient educated on pain management and to follow up with PMD. Pain Scale 0/10. Opportunity for questions provided and answered. Medication side effect fact sheet provided.
== END 2020-02-08 11:17 | disposition home or self-care (01) ==
LOC: SED 10:25
DX: F41.9 Anxiety disorder, unspecified (principal); I10 Essential (primary) hypertension; F11.20 Opioid dependence, uncomplicated; Z79.899 Other long term (current) drug therapy; Z88.6 Allergy status to analgesic agent; Z88.0 Allergy status to penicillin
CPT/HCPCS: 99283

== ENCOUNTER 2020-02-13 11:08 | Emergency (ER) | payer MEDICAID ==
[~2020-02-13] VITALS: Ht 147.3 cm; Wt 81.6 kg
[2020-02-13 11:14] VITALS: BP_SYST 157
--- NOTE | 2020-02-13 11:31 | NUR ---
Patient to ER bed 08 to gown for evaluation. Side rails up.
--- NOTE | 2020-02-13 11:35 | NUR ---
DR SANTANA IN TO ASSESS
[2020-02-13] MEDS ORDERED: DIAZEPAM 5 MG TABLET (VALIUM) PO ONE (11:45)
--- NOTE | 2020-02-13 11:50 | NUR ---
ANXIOUS , DEMANDING AND RESTLESS, MUTIPLE REQUEST FOR BENZO MEDICATION. SKIN WARM AND DRY. COMMUNICATES CLEARLY IN FULL COMPLETE SENTENCES. C/O "I'M ANXIOUS AND CANT GET MY MEDS"
--- NOTE | 2020-02-13 12:20 | NUR ---
STATED "MEDICATION IS WORKING I FEEL BETTER"
[2020-02-13 12:22] VITALS: BP_SYST 141
--- NOTE | 2020-02-13 12:26 | NUR ---
Patient given written and verbal discharge instructions and verbalizes understanding. ER MD discussed with patient the results and treatment provided. Patient in stable condition. ID arm band removed.Patient educated on pain management and to follow up with PMD. Pain Scale 0/10 Opportunity for questions provided and answered. Medication side effect fact sheet provided.
== END 2020-02-13 12:26 | disposition home or self-care (01) ==
LOC: SED 11:08
DX: F41.9 Anxiety disorder, unspecified (principal); I10 Essential (primary) hypertension; F11.20 Opioid dependence, uncomplicated; Z79.899 Other long term (current) drug therapy; Z88.0 Allergy status to penicillin; Z88.6 Allergy status to analgesic agent
CPT/HCPCS: 93005; 99283

== ENCOUNTER 2020-02-15 12:37 | Emergency (ER) | payer MEDICAID ==
[~2020-02-15] VITALS: Ht 147.3 cm; Wt 83.5 kg
[2020-02-15 12:43] VITALS: BP_SYST 208
--- NOTE | 2020-02-15 12:45 | NUR ---
Patient to ER bed 07 to gown for evaluation. Side rails up.
--- NOTE | 2020-02-15 12:53 | NUR ---
RECEIVED AND IN ROOM. BABAR TO ASSUME CARE. STEADY GAIT. EMOTIONAL AND TALKATIVE
[2020-02-15 12:55] VITALS: BP_SYST 208
--- NOTE | 2020-02-15 13:05 | NUR ---
DR BRASWELL IN TO ASSESS
--- NOTE | 2020-02-15 13:50 | NUR ---
ANXIOUS, COMMUNICATES CLEARLY IN FULL COMPLETE SENTENCES, SKIN WARM AND DRY.
== END 2020-02-15 13:50 | disposition home or self-care (01) ==
LOC: SED 12:37
DX: F41.9 Anxiety disorder, unspecified (principal); I10 Essential (primary) hypertension; F11.20 Opioid dependence, uncomplicated; Z79.899 Other long term (current) drug therapy; Z88.0 Allergy status to penicillin; Z88.6 Allergy status to analgesic agent
CPT/HCPCS: 99281

== ENCOUNTER 2020-03-12 09:47 | Emergency (ER) | payer MEDICAID ==
[~2020-03-12] VITALS: Ht 149.9 cm; Wt 81.2 kg
[2020-03-12 09:50] VITALS: BP_SYST 161
[2020-03-12] MEDS ORDERED: chlordiazePOXIDE HCL 25 MG CAPSULE PO ONE (10:15)
[2020-03-12 10:16] VITALS: BP_SYST 162
== END 2020-03-12 10:24 | disposition left against medical advice (07) ==
LOC: SED 09:47
DX: F41.9 Anxiety disorder, unspecified (principal); F13.20 Sedative, hypnotic or anxiolytic dependence, uncomplicated; I10 Essential (primary) hypertension; F11.20 Opioid dependence, uncomplicated; Z79.899 Other long term (current) drug therapy; Z88.0 Allergy status to penicillin; Z88.6 Allergy status to analgesic agent
CPT/HCPCS: 99283

== ENCOUNTER 2020-04-18 10:53 | Emergency (ER) | payer MEDICAID ==
[~2020-04-18] VITALS: Ht 147.3 cm; Wt 99.8 kg
[2020-04-18 10:53] VITALS: BP_SYST 118
[2020-04-18] MEDS ORDERED: CLON1TAB12 PO ×2 (11:15→11:26)
== END 2020-04-18 11:42 | disposition home or self-care (01) ==
LOC: SED 10:53
DX: F41.9 Anxiety disorder, unspecified (principal); I10 Essential (primary) hypertension; F10.20 Alcohol dependence, uncomplicated; Z79.899 Other long term (current) drug therapy; Z88.0 Allergy status to penicillin; Z88.6 Allergy status to analgesic agent
CPT/HCPCS: 99283

== ENCOUNTER 2020-04-27 10:23 | Emergency (ER) | payer MEDICAID ==
[~2020-04-27] VITALS: Ht 157.5 cm; Wt 79.4 kg
[2020-04-27 12:16] VITALS: BP_SYST 106
--- NOTE | 2020-04-27 12:16 | NUR ---
Patient triaged and placed in waiting room. VSS and patient appears in no acute distress at this time. Accompanied by self , awaiting available bed, and MD notified of need for MSE.
--- NOTE | 2020-04-27 12:18 | NUR ---
Pt brought by self, A&Ox4, pt presents to ER with anxiety , requesting anxiety medication , skin pink and warm, cap refill <3, VSS.
--- NOTE | 2020-04-27 12:49 | NUR ---
Dr Lima evaluating patient in the tent
[2020-04-27] MEDS: LORazepam 1 MG TABLET PO ONE (13:15)
[2020-04-27 13:50] VITALS: BP_SYST 106
--- NOTE | 2020-04-27 13:50 | NUR ---
Patient given written and verbal discharge instructions and verbalizes understanding. ER MD discussed with patient the results and treatment provided. Patient in stable condition. ID arm band removed. Rx of KLONOPIN given. Patient educated on pain management and to follow up with PMD. Pain Scale 0/10. Opportunity for questions provided and answered. Medication side effect fact sheet provided.
== END 2020-04-27 13:50 | disposition home or self-care (01) ==
LOC: SED 10:23
DX: F41.9 Anxiety disorder, unspecified (principal); I10 Essential (primary) hypertension; Z76.0 Encounter for issue of repeat prescription; Z88.0 Allergy status to penicillin; Z88.6 Allergy status to analgesic agent; Z79.899 Other long term (current) drug therapy
CPT/HCPCS: 99283

== ENCOUNTER 2020-05-11 11:01 | Emergency (ER) | payer MEDICAID ==
[~2020-05-11] VITALS: Ht 144.8 cm; Wt 83.0 kg
[2020-05-11 11:17] VITALS: BP_SYST 143
[2020-05-11 11:46] VITALS: BP_SYST 143
== END 2020-05-11 11:47 | disposition home or self-care (01) ==
LOC: SED 11:01
DX: Z76.0 Encounter for issue of repeat prescription (principal); I10 Essential (primary) hypertension; F41.9 Anxiety disorder, unspecified; F11.20 Opioid dependence, uncomplicated; Z79.899 Other long term (current) drug therapy; Z88.0 Allergy status to penicillin; Z88.6 Allergy status to analgesic agent
CPT/HCPCS: 99281

== ENCOUNTER 2020-05-18 13:21 | Emergency (ER) | payer MEDICAID ==
[~2020-05-18] VITALS: Ht 144.8 cm; Wt 90.7 kg
[2020-05-18 13:38] VITALS: BP_SYST 109
--- NOTE | 2020-05-18 13:38 | NUR ---
Patient to tent 1 to gown for evaluation. Side rails up.
--- NOTE | 2020-05-18 13:40 | NUR ---
pt arrives from home w/ c/o abd pain 08/27 along w/ n/v. Pt devora fever and diarrhea
--- NOTE | 2020-05-18 13:50 | NUR ---
ER at bedside examining patient.
[2020-05-18] MEDS ORDERED: HYDROcodone/ACETAMIN 5-325 MG TAB (NORCO/ VICODIN) PO ONE (14:00)
[2020-05-18] MEDS ORDERED: ONDANSETRON 4 MG ODT TAB PO ONE (14:00)
[2020-05-18] MEDS ORDERED: ACETAMINOPHEN 500 MG TABLET PO ONE (14:00)
[2020-05-18] MEDS ORDERED: ACETAMINOPHEN 325 MG TABLET PO ONE (14:00)
[2020-05-18 14:12] VITALS: BP_SYST 109
--- NOTE | 2020-05-18 14:15 | NUR ---
Patient given written and verbal discharge instructions and verbalizes understanding. ER MD discussed with patient the results and treatment provided. Patient in stable condition. ID arm band removed. Patient educated on pain management and to follow up with PMD. Pain Scale 3/10. Opportunity for questions provided and answered. Medication side effect fact sheet provided.
== END 2020-05-18 14:15 | disposition home or self-care (01) ==
LOC: SED 13:21
DX: R10.33 Periumbilical pain (principal); I10 Essential (primary) hypertension; F41.9 Anxiety disorder, unspecified; F11.20 Opioid dependence, uncomplicated; Z79.899 Other long term (current) drug therapy; Z88.0 Allergy status to penicillin; Z88.8 Allergy status to other drugs, medicaments and biological substances; Z88.6 Allergy status to analgesic agent
CPT/HCPCS: 99284; Q0162

== ENCOUNTER 2020-05-22 13:20 | Emergency (ER) | payer MEDICAID ==
--- NOTE | 2020-05-22 14:00 | NUR ---
PT TO TENT FOR EVALUATION
--- NOTE | 2020-05-22 14:10 | NUR ---
DR. PATRICIA TO [facility] FOR PT EVALUATION
[2020-05-22] MEDS ORDERED: HYDROcodone/ACETAMIN 10-325 MG TAB PO ONE (14:15)
[2020-05-22 14:42] LABS: BASOPHILS # (AUTO) 0.1 K/uL (0.0-0.2); BASOPHILS % (AUTO) 0.6 % (0.0-2.0); EOSINOPHILS % (AUTO) 0.5 % (0.0-4.0); HEMOGLOBIN 11.1 g/dL (12.0-16.0); LYMPHOCYTES # (AUTO) 1.1 K/uL (1.0-5.5); MEAN CORPUSCULAR HEMOGLOBIN 24 pg (27-31); MEAN CORPUSCULAR HGB CONC 32 % (32-36); MEAN CORPUSCULAR VOLUME 76 fL (79.0-98.0); MONOCYTES # (AUTO) 0.6 K/uL (0.0-1.0); MONOCYTES % (AUTO) 5.7 % (1.7-9.3); NEUTROPHILS # (AUTO) 8.4 K/uL (1.8-7.7); NEUTROPHILS % (AUTO) 82.2 % (40.0-70.0); PLATELET COUNT (AUTO) 263 K/uL (130-430); RED BLOOD CELL COUNT(AUTO) 4.63 MIL/uL (4.2-6.2); RED CELL DISTRIBUTION WIDTH 25.7 % (9.0-15.0); WHITE BLOOD COUNT (AUTO) 10.2 K/uL (4.8-10.8)
[2020-05-22 14:44] LABS: BILIRUBIN,URINE NEGATIVE (NEGATIVE); BLOOD, URINE NEGATIVE (NEGATIVE); COLOR,URINE YELLOW (YELLOW); GLUCOSE,URINE NEGATIVE (NEGATIVE); KETONES,URINE NEGATIVE (NEGATIVE); LEUKOCYTE ESTERASE ,URINE NEGATIVE (NEGATIVE); NITRITE, URINE NEGATIVE (NEGATIVE); PROTEIN URINE NEGATIVE (NEGATIVE); UROBILINOGEN,URINE 0.2 (0.2-1.0)
[2020-05-22 14:45] LABS: CLARITY/URINE SLIGHTLY HAZY (CLEAR)
--- NOTE | 2020-05-22 14:45 | NUR ---
PT ALERT AND ORIENTED REPORTING LLQ PAIN AND ANXIETY. PT REPORTS PAIN 10/10 PAIN SCALE CURRENTLY.
[2020-05-22] MEDS ORDERED: HYDROcodone/ACETAMIN 10-325 MG TAB ONE (14:59)
[2020-05-22 15:09] LABS: CALCIUM 8.8 mg/dL (8.4-11.0); CREATININE 0.79 mg/dL (0.55-1.30)
[2020-05-22 16:50] VITALS: BP_SYST 138
--- NOTE | 2020-05-22 16:50 | NUR ---
Patient given written and verbal discharge instructions and verbalizes understanding. DR. ESTHER GORDON MD discussed with patient the results and treatment provided. Patient in stable condition. ID arm band removed. Patient educated on pain management and to follow up with PMD. Pain Scale 0/10. Opportunity for questions provided and answered. Medication side effect fact sheet provided.
== END 2020-05-22 16:50 | disposition home or self-care (01) ==
LOC: SED 13:20
DX: R10.32 Left lower quadrant pain (principal); I10 Essential (primary) hypertension; F41.9 Anxiety disorder, unspecified; F11.20 Opioid dependence, uncomplicated; Z79.899 Other long term (current) drug therapy; Z88.0 Allergy status to penicillin; Z88.6 Allergy status to analgesic agent
CPT/HCPCS: 36415; 76830-TC; 76857; 80048; 81003; 85025; 99284

== ENCOUNTER 2020-06-18 10:54 | Emergency (ER) | payer MEDICAID ==
[~2020-06-18] VITALS: Ht 147.3 cm; Wt 81.6 kg
[2020-06-18 11:05] VITALS: BP_SYST 161
--- NOTE | 2020-06-18 11:05 | NUR ---
Patient to ER bed 5 to gown for evaluation. Side rails up.
--- NOTE | 2020-06-18 11:09 | NUR ---
Pt walked in to ER with c/o anxiety, reports she ran out of her BP and anxiety meds and doesn't see her doctor until next week. Reports hernia pain 11/27 and is also out of her percocets but doesn't see pain management until next week also. V/S stable, no distress noted.
--- NOTE | 2020-06-18 11:15 | NUR ---
ER Dr. Garcia at bedside examining patient.
[2020-06-18] MEDS ORDERED: TOPXL100 PO (11:20)
[2020-06-18 11:31] VITALS: BP_SYST 161
== END 2020-06-18 11:31 | disposition home or self-care (01) ==
LOC: SED 10:54
DX: F41.9 Anxiety disorder, unspecified (principal); I10 Essential (primary) hypertension; F32.9 Major depressive disorder, single episode, unspecified; Z76.0 Encounter for issue of repeat prescription; Z88.0 Allergy status to penicillin; Z88.6 Allergy status to analgesic agent; Z88.8 Allergy status to other drugs, medicaments and biological substances; Z79.899 Other long term (current) drug therapy
CPT/HCPCS: 99281

== ENCOUNTER 2020-07-02 10:18 | Emergency (ER) | payer MEDICAID ==
[~2020-07-02] VITALS: Ht 147.3 cm; Wt 81.6 kg
[~2020-07-02 10:18] MED LIST changes: +TOPXL100 PO
[2020-07-02 10:21] VITALS: BP_SYST 131
[2020-07-02 10:35] VITALS: BP_SYST 131
== END 2020-07-02 10:35 | disposition home or self-care (01) ==
LOC: SED 10:18
DX: R07.89 Other chest pain (principal); F19.10 Other psychoactive substance abuse, uncomplicated; I10 Essential (primary) hypertension; F32.9 Major depressive disorder, single episode, unspecified; F41.9 Anxiety disorder, unspecified; F11.20 Opioid dependence, uncomplicated; Z79.899 Other long term (current) drug therapy; Z88.0 Allergy status to penicillin; Z88.6 Allergy status to analgesic agent
CPT/HCPCS: 93005; 99283

== ENCOUNTER 2020-11-15 19:40 | Emergency (ER) | payer MEDICAID ==
[~2020-11-15] VITALS: Ht 144.8 cm; Wt 80.3 kg
[2020-11-15 20:17] VITALS: BP_SYST 126
[2020-11-15 21:29] LABS: BILIRUBIN,URINE NEGATIVE (NEGATIVE); BLOOD, URINE NEGATIVE (NEGATIVE); CLARITY/URINE SL CLOUDY (CLEAR); COLOR,URINE YELLOW (YELLOW); GLUCOSE,URINE NEGATIVE (NEGATIVE); KETONES,URINE NEGATIVE (NEGATIVE); NITRITE, URINE NEGATIVE (NEGATIVE); PROTEIN URINE NEGATIVE (NEGATIVE); UROBILINOGEN,URINE 0.2 (0.2-1.0)
[2020-11-15 21:45] LABS: BASOPHILS % (AUTO) 0.5 % (0.0-2.0); EOSINOPHILS # (AUTO) 0.1 K/uL (0.0-0.4); EOSINOPHILS % (AUTO) 1.7 % (0.0-4.0); HEMATOCRIT 30.5 % (36-48); HEMOGLOBIN 9.2 g/dL (12.0-16.0); LYMPHOCYTES # (AUTO) 1.2 K/uL (1.0-5.5); LYMPHOCYTES % (AUTO) 13.7 % (20.5-51.5); MEAN CORPUSCULAR HEMOGLOBIN 21 pg (27-31); MEAN CORPUSCULAR HGB CONC 30 % (32-36); MEAN CORPUSCULAR VOLUME 71 fL (79.0-98.0); MONOCYTES # (AUTO) 0.6 K/uL (0.0-1.0); MONOCYTES % (AUTO) 7.2 % (1.7-9.3); NEUTROPHILS # (AUTO) 6.7 K/uL (1.8-7.7); NEUTROPHILS % (AUTO) 76.9 % (40.0-70.0); PLATELET COUNT (AUTO) 232 K/uL (130-430); RED BLOOD CELL COUNT(AUTO) 4.32 MIL/uL (4.2-6.2); RED CELL DISTRIBUTION WIDTH 18.2 % (9.0-15.0); WHITE BLOOD COUNT (AUTO) 8.7 K/uL (4.8-10.8)
[2020-11-15 21:52] LABS: CALCIUM 9.1 mg/dL (8.4-11.0); CREATININE 0.65 mg/dL (0.55-1.30); POTASSIUM 3.9 mmol/L (3.5-5.1)
[2020-11-15 21:57] LABS: ALBUMIN 3.7 g/dL (3.4-4.8); TOTAL BILIRUBIN 0.2 mg/dL (0.0-1.0)
[2020-11-15] MEDS: ONDANSETRON HCL 4 MG/2 ML VIAL IVP ONE (22:12)
[2020-11-15] MEDS: NACL 0.9% 1,000 ML IV ONE (22:13)
[2020-11-15] MEDS: DIPHENHYDRAMINE INJ 50 MG/ML VIAL IVP ONE (22:17)
[2020-11-15 22:18] LABS: LEUKOCYTE ESTERASE ,URINE TRACE (NEGATIVE)
[2020-11-15 22:19] LABS: BACTERIA,URINE MODERATE /HPF (None Seen); MUCUS,URINE None Seen /LPF (None Seen); RBC,URINE 0-3 /HPF (0-3)
[2020-11-15] MEDS: MORPHINE 2 MG/ML INJ. SYRINGE IVP ONE (22:22)
[2020-11-15] MEDS ORDERED: NITR-85 PO (23:20)
[2020-11-15 23:25] VITALS: BP_SYST 122
== END 2020-11-15 23:25 | disposition home or self-care (01) ==
LOC: SED 19:40
DX: K59.00 Constipation, unspecified (principal); N39.0 Urinary tract infection, site not specified; I10 Essential (primary) hypertension; Z88.0 Allergy status to penicillin; Z88.6 Allergy status to analgesic agent; Z88.8 Allergy status to other drugs, medicaments and biological substances; Z79.899 Other long term (current) drug therapy
CPT/HCPCS: 36415; 74176; 76376; 80053; 81000; 83690; 85025; 87086; 96361; 96374; 96375; 99284; J1200; J2270; J2405; J7030

== ENCOUNTER 2020-12-23 12:13 | Emergency (ER) | payer MEDICAID ==
[~2020-12-23] VITALS: Ht 144.8 cm; Wt 81.6 kg
[~2020-12-23 12:13] MED LIST changes: +NITR-85 PO
[2020-12-23 12:45] VITALS: BP_SYST 159
--- NOTE | 2020-12-23 12:48 | NUR ---
Patient to ER bed 4 to gown for evaluation. Side rails up. Report given to KRISSY TORIBIO.
--- NOTE | 2020-12-23 12:50 | NUR ---
Pt walked in to ER with c/o anxiety, requesting refills on her ativan. V/S stable, no acute distress noted.
[2020-12-23] MEDS ORDERED: LEVE500T9 PO (12:54)
--- NOTE | 2020-12-23 12:55 | NUR ---
ER Dr. Molina at bedside examining patient.
[2020-12-23 12:59] VITALS: BP_SYST 159
[2020-12-23] MEDS ORDERED: LORazepam 2 MG/ML VIAL IM ONE (13:00)
--- NOTE | 2020-12-23 13:00 | NUR ---
Patient given written and verbal discharge instructions and verbalizes understanding. ER MD discussed with patient the results and treatment provided. Patient in stable condition. ID arm band removed. Rx of Keppra given. Patient educated on pain management and to follow up with PMD. Pain Scale 0. Opportunity for questions provided and answered. Medication side effect fact sheet provided.
== END 2020-12-23 12:59 | disposition home or self-care (01) ==
LOC: SED 12:13
DX: R06.4 Hyperventilation (principal); F41.9 Anxiety disorder, unspecified; I10 Essential (primary) hypertension; Z88.0 Allergy status to penicillin; Z88.6 Allergy status to analgesic agent; Z88.8 Allergy status to other drugs, medicaments and biological substances; Z79.899 Other long term (current) drug therapy
CPT/HCPCS: 96372; 99283; J2060

== ENCOUNTER 2021-01-04 15:30 | Emergency (ER) | payer MEDICAID ==
[~2021-01-04] VITALS: Ht 147.3 cm; Wt 85.3 kg
[~2021-01-04 15:30] MED LIST changes: +LEVE500T9 PO
[2021-01-04 15:55] VITALS: BP_SYST 164
--- NOTE | 2021-01-04 16:05 | NUR ---
Pt to remain in ER lobby until ER bed becomes available.
--- NOTE | 2021-01-04 17:40 | NUR ---
EVAN SANTANA at [facility] examining patient.
--- NOTE | 2021-01-04 17:40 | NUR ---
Patient to ER Chair 1 awaiting
--- NOTE | 2021-01-04 17:40 | NUR ---
Pt came into ER with complaint of back spasms Xtoday and anxiety Xtoday. Pt is AAOX4 speaking full sentences. No distress noted at this time.
--- NOTE | 2021-01-04 17:44 | NUR ---
Pt ambulated to restroom independently gait steady and straight.
--- NOTE | 2021-01-04 18:14 | NUR ---
Pt sitting in chair no distress noted at this time. VSS
--- NOTE | 2021-01-04 18:39 | NUR ---
Urine collected and sent to lab.
--- NOTE | 2021-01-04 18:42 | NUR ---
Patient transported to radiology via ambulatory, accompanied by tech.
--- NOTE | 2021-01-04 19:05 | NUR ---
Care endorsed to Ismael TORIBIO
[2021-01-04 19:37] LABS: BILIRUBIN,URINE NEGATIVE (NEGATIVE); BLOOD, URINE NEGATIVE (NEGATIVE); COLOR,URINE YELLOW (YELLOW); GLUCOSE,URINE NEGATIVE (NEGATIVE); KETONES,URINE NEGATIVE (NEGATIVE); LEUKOCYTE ESTERASE ,URINE 2+ (NEGATIVE); NITRITE, URINE NEGATIVE (NEGATIVE); PH,URINE 5.5 (5.0-8.0); PROTEIN URINE NEGATIVE (NEGATIVE); UROBILINOGEN,URINE 0.2 (0.2-1.0)
[2021-01-04 19:56] LABS: CLARITY/URINE HAZY (CLEAR)
[2021-01-04 19:58] LABS: BACTERIA,URINE MODERATE /HPF (None Seen); MUCUS,URINE None Seen /LPF (None Seen); RBC,URINE 0-3 /HPF (0-3); WBC,URINE 20-50 /HPF (0-3)
[2021-01-04] MEDS ORDERED: DIAZ10TA PO (19:58)
[2021-01-04 20:25] VITALS: BP_SYST 148
--- NOTE | 2021-01-04 20:25 | NUR ---
Patient given written and verbal discharge instructions and verbalizes understanding. DR. ESTHER GORDON MD discussed with patient the results and treatment provided. Patient in stable condition. ID arm band removed. Rx PER MD. Patient educated on pain management and to follow up with PMD. Pain Scale 0/10. Opportunity for questions provided and answered. Medication side effect fact sheet provided.
== END 2021-01-04 20:25 | disposition home or self-care (01) ==
LOC: SED 15:30
DX: G89.29 Other chronic pain (principal); M54.5 Low back pain; I10 Essential (primary) hypertension; F41.9 Anxiety disorder, unspecified; F32.9 Major depressive disorder, single episode, unspecified; Z88.0 Allergy status to penicillin; Z88.6 Allergy status to analgesic agent; Z88.8 Allergy status to other drugs, medicaments and biological substances; Z79.899 Other long term (current) drug therapy
CPT/HCPCS: 72100-TC; 81000; 81025; 87086; 99284

== ENCOUNTER 2021-01-10 17:38 | Emergency (ER) | payer MEDICAID ==
[~2021-01-10] VITALS: Ht 170.2 cm; Wt 80.7 kg
[~2021-01-10 17:38] MED LIST changes: +DIAZ10TA PO
[2021-01-10 17:47] VITALS: BP_SYST 119
--- NOTE | 2021-01-10 18:00 | NUR ---
Patient triaged and placed in waiting room. VSS and patient appears in no acute distress at this time. Accompanied by self , awaiting available bed, and MD notified of need for MSE.
--- NOTE | 2021-01-10 18:05 | NUR ---
Pt arrived via BLS with c/o anxiety and R lower abd pain with Hx of hernia, pt denies chest pain at this time, denies N/V, skin pink and warm, cap refill <3, VSS, respirations even and unlabored.
--- NOTE | 2021-01-10 18:35 | NUR ---
Pt anxious , c/o chest pressure at this time, notified, EKG ordered and done EKG given to Dr Gonzales.
--- NOTE | 2021-01-10 19:15 | NUR ---
Report given to Abdoul TORIBIO
[2021-01-10 20:45] LABS: EOSINOPHILS % (AUTO) 0.1 % (0.0-4.0); MONOCYTES # (AUTO) 0.8 K/uL (0.0-1.0)
[2021-01-10 20:50] LABS: BASOPHILS % (AUTO) 0.4 % (0.0-2.0); HEMATOCRIT 31.8 % (36-48); HEMOGLOBIN 9.5 g/dL (12.0-16.0); LYMPHOCYTES # (AUTO) 1.6 K/uL (1.0-5.5); LYMPHOCYTES % (AUTO) 13.6 % (20.5-51.5); MEAN CORPUSCULAR HEMOGLOBIN 21 pg (27-31); MEAN CORPUSCULAR HGB CONC 30 % (32-36); MEAN CORPUSCULAR VOLUME 69 fL (79.0-98.0); MONOCYTES % (AUTO) 6.4 % (1.7-9.3); NEUTROPHILS # (AUTO) 9.3 K/uL (1.8-7.7); NEUTROPHILS % (AUTO) 79.5 % (40.0-70.0); PLATELET COUNT (AUTO) 245 K/uL (130-430); RED BLOOD CELL COUNT(AUTO) 4.59 MIL/uL (4.2-6.2); RED CELL DISTRIBUTION WIDTH 17.1 % (9.0-15.0); WHITE BLOOD COUNT (AUTO) 11.8 K/uL (4.8-10.8)
[2021-01-10 20:53] LABS: CALCIUM 9.2 mg/dL (8.4-11.0); CREATININE 0.65 mg/dL (0.55-1.30); POTASSIUM 3.4 mmol/L (3.5-5.1)
[2021-01-10 21:04] LABS: ALBUMIN 4.4 g/dL (3.4-4.8); TOTAL BILIRUBIN 0.3 mg/dL (0.0-1.0)
--- NOTE | 2021-01-11 02:40 | NUR ---
Patient to ER bed 5 to gown for evaluation. Side rails up. Report given to ED TORIBIO.
--- NOTE | 2021-01-11 03:01 | NUR ---
ER Dr. Lima at bedside examining patient.
[2021-01-11] MEDS ORDERED: ALPRAZolam 0.25 MG TABLET PO ONE (03:15)
[2021-01-11 03:20] VITALS: BP_SYST 116
--- NOTE | 2021-01-11 03:20 | NUR ---
Patient given written and verbal discharge instructions and verbalizes understanding. ER MD discussed with patient the results and treatment provided. Patient in stable condition. ID arm band removed. Rx of xanax and ativan given. Patient educated on pain management and to follow up with PMD. Pain Scale 0/10. Opportunity for questions provided and answered. Medication side effect fact sheet provided.
== END 2021-01-11 03:20 | disposition home or self-care (01) ==
LOC: SED 17:38
DX: R10.31 Right lower quadrant pain (principal); R07.89 Other chest pain; D64.9 Anemia, unspecified; I10 Essential (primary) hypertension; F41.9 Anxiety disorder, unspecified; Z79.899 Other long term (current) drug therapy
CPT/HCPCS: 36415; 71045; 80053; 82550; 83880; 84484; 84702; 85025; 85379; 93005; 99285

== ENCOUNTER 2021-01-31 12:35 | Emergency (ER) | payer MEDICAID ==
[~2021-01-31] VITALS: Ht 144.8 cm; Wt 83.9 kg
[2021-01-31 12:56] VITALS: BP_SYST 191
[2021-01-31 13:59] LABS: BILIRUBIN,URINE NEGATIVE (NEGATIVE); BLOOD, URINE NEGATIVE (NEGATIVE); CLARITY/URINE SL CLOUDY (CLEAR); COLOR,URINE YELLOW (YELLOW); GLUCOSE,URINE NEGATIVE (NEGATIVE); KETONES,URINE NEGATIVE (NEGATIVE); LEUKOCYTE ESTERASE ,URINE 1+ (NEGATIVE); NITRITE, URINE NEGATIVE (NEGATIVE); PROTEIN URINE NEGATIVE (NEGATIVE); UROBILINOGEN,URINE 0.2 (0.2-1.0)
[2021-01-31] MEDS ORDERED: fentaNYL CITRATE/PF 100 MCG/2 ML AMP IVP ONE (15:00)
[2021-01-31] MEDS ORDERED: NACL 0.9% 1,000 ML IV ONE (15:00)
[2021-01-31 15:01] LABS: BACTERIA,URINE FEW /HPF (None Seen); RBC,URINE 0-3 /HPF (0-3); YEAST,URINE Rare /HPF (None Seen)
[2021-01-31 15:32] LABS: BASOPHILS # (AUTO) 0.1 K/uL (0.0-0.2); BASOPHILS % (AUTO) 0.9 % (0.0-2.0); EOSINOPHILS # (AUTO) 0.2 K/uL (0.0-0.4); HEMOGLOBIN 9.2 g/dL (12.0-16.0); LYMPHOCYTES # (AUTO) 1.5 K/uL (1.0-5.5); LYMPHOCYTES % (AUTO) 13.6 % (20.5-51.5); MEAN CORPUSCULAR HEMOGLOBIN 21 pg (27-31); MEAN CORPUSCULAR HGB CONC 30 % (32-36); MEAN CORPUSCULAR VOLUME 69 fL (79.0-98.0); MONOCYTES # (AUTO) 0.6 K/uL (0.0-1.0); MONOCYTES % (AUTO) 5.6 % (1.7-9.3); NEUTROPHILS # (AUTO) 8.7 K/uL (1.8-7.7); NEUTROPHILS % (AUTO) 77.9 % (40.0-70.0); PLATELET COUNT (AUTO) 209 K/uL (130-430); RED BLOOD CELL COUNT(AUTO) 4.49 MIL/uL (4.2-6.2); RED CELL DISTRIBUTION WIDTH 17.7 % (9.0-15.0); WHITE BLOOD COUNT (AUTO) 11.2 K/uL (4.8-10.8)
[2021-01-31] MEDS ORDERED: ZOLP5TAB2 PO (17:08)
[2021-01-31] MEDS ORDERED: CIPR500T5 PO (17:08)
[2021-01-31] MEDS ORDERED: KLO.5 PO (17:08)
[2021-01-31 17:19] VITALS: BP_SYST 154
[2021-01-31 17:23] LABS: CALCIUM 8.6 mg/dL (8.4-11.0); CREATININE 0.57 mg/dL (0.55-1.30); POTASSIUM 4.4 mmol/L (3.5-5.1)
[2021-01-31 17:24] LABS: ALBUMIN 3.2 g/dL (3.4-4.8)
[2021-01-31 17:32] LABS: TOTAL BILIRUBIN 0.1 mg/dL (0.0-1.0)
== END 2021-01-31 17:20 | disposition home or self-care (01) ==
LOC: SED 12:35
DX: N39.0 Urinary tract infection, site not specified (principal); I10 Essential (primary) hypertension; Z88.0 Allergy status to penicillin; Z88.6 Allergy status to analgesic agent; Z79.899 Other long term (current) drug therapy
CPT/HCPCS: 36415; 74176; 76376; 80053; 81000; 85025; 87086; 96361; 96374; 99284; J3010; J7030

== ENCOUNTER 2021-02-04 13:05 | Emergency (ER) | payer MEDICAID ==
[~2021-02-04] VITALS: Ht 144.8 cm; Wt 79.4 kg
[~2021-02-04 13:05] MED LIST changes: +CIPR500T5 PO; +KLO.5 PO
[2021-02-04 13:26] VITALS: BP_SYST 142
[2021-02-04] MEDS ORDERED: ONDANSETRON 4 MG ODT TAB PO ONE (13:45)
[2021-02-04] MEDS ORDERED: ACETAMINOPHEN 325 MG TABLET PO ONE (13:45)
[2021-02-04 13:56] VITALS: BP_SYST 142
[2021-02-04 14:19] LABS: BILIRUBIN,URINE NEGATIVE (NEGATIVE); BLOOD, URINE NEGATIVE (NEGATIVE); CLARITY/URINE TURBID (CLEAR); COLOR,URINE YELLOW (YELLOW); GLUCOSE,URINE NEGATIVE (NEGATIVE); KETONES,URINE NEGATIVE (NEGATIVE); LEUKOCYTE ESTERASE ,URINE 3+ (NEGATIVE); NITRITE, URINE NEGATIVE (NEGATIVE); PH,URINE 7.5 (5.0-8.0); PROTEIN URINE NEGATIVE (NEGATIVE); UROBILINOGEN,URINE 0.2 (0.2-1.0)
[2021-02-04 14:34] LABS: BACTERIA,URINE MODERATE /HPF (None Seen); MUCUS,URINE 1+ /LPF (None Seen); RBC,URINE 0-3 /HPF (0-3)
== END 2021-02-04 13:58 | disposition left against medical advice (07) ==
LOC: SED 13:05
DX: R10.31 Right lower quadrant pain (principal); I10 Essential (primary) hypertension; Z88.0 Allergy status to penicillin; Z88.6 Allergy status to analgesic agent; Z88.8 Allergy status to other drugs, medicaments and biological substances; Z79.899 Other long term (current) drug therapy
CPT/HCPCS: 81000; 81025; 87086; 99283

== ENCOUNTER 2021-02-05 12:08 | Emergency (ER) | payer MEDICAID ==
[~2021-02-05] VITALS: Ht 152.4 cm; Wt 72.6 kg
--- NOTE | 2021-02-05 12:12 | NUR ---
Placed in room 05 . Placed on monitor worker, blood pressure machine and pulse oximeter. To gown for exam. Side rails up.
[2021-02-05 12:14] VITALS: BP_SYST 184
--- NOTE | 2021-02-05 12:20 | NUR ---
PT BIBA FROM HOME C/O N/V ABD PAIN SINCE YESTERDAY. PT PRESENTS MOANING, ABLE TO AMBULATE TO [place], AAOX4, V/S STABLE.
--- NOTE | 2021-02-05 12:30 | NUR ---
ER DR. NAPOLES AT THE BEDSIDE EXAMINING PT
[2021-02-05] MEDS ORDERED: NITROFURANTOIN MONOHYD/M-CRYST 100 MG CAPSULE (MacroBID) PO ONE (12:45)
[2021-02-05] MEDS ORDERED: HYDROcodone/ACETAMIN 5-325 MG TAB (NORCO/ VICODIN) PO ONE (13:00)
--- NOTE | 2021-02-05 13:09 | NUR ---
Patient given written and verbal discharge instructions and verbalizes understanding. ER MD discussed with patient the results and treatment provided. Patient in stable condition. ID arm band removed. NO Rx given. Patient educated on pain management and to follow up with PMD. Pain Scale 0/10. Opportunity for questions provided and answered. Medication side effect fact sheet provided.
[2021-02-05 13:11] VITALS: BP_SYST 184
== END 2021-02-05 13:11 | disposition home or self-care (01) ==
LOC: SED 12:08
DX: G89.29 Other chronic pain (principal); R10.9 Unspecified abdominal pain; I10 Essential (primary) hypertension; F11.20 Opioid dependence, uncomplicated; Z88.0 Allergy status to penicillin; Z88.6 Allergy status to analgesic agent; Z88.8 Allergy status to other drugs, medicaments and biological substances; Z79.899 Other long term (current) drug therapy
CPT/HCPCS: 99283

== ENCOUNTER 2021-02-06 11:59 | Emergency (ER) | payer MEDICAID ==
[~2021-02-06] VITALS: Ht 147.3 cm; Wt 99.8 kg
--- NOTE | 2021-02-06 12:28 | NUR ---
Pt triaged and placed in waiting room
--- NOTE | 2021-02-06 12:35 | NUR ---
Pt walked in to ER with reports of a seizure this morning d/t withdraw from her Klonopin. Denies hitting her head or LOC, states she hurt her right knee and ankle, pain 10/10. HTN noted, MD aware. Other v/s stable, no acute distress noted.
[2021-02-06 13:03] VITALS: BP_SYST 195
--- NOTE | 2021-02-06 13:15 | NUR ---
ER Dr. Avila at bedside examining patient.
[2021-02-06 13:21] VITALS: BP_SYST 195
== END 2021-02-06 13:20 | disposition home or self-care (01) ==
LOC: SED 11:59
DX: M25.561 Pain in right knee (principal); I10 Essential (primary) hypertension; F19.90 Other psychoactive substance use, unspecified, uncomplicated; Z76.0 Encounter for issue of repeat prescription; Z88.0 Allergy status to penicillin; Z88.5 Allergy status to narcotic agent; Z88.6 Allergy status to analgesic agent; Z88.8 Allergy status to other drugs, medicaments and biological substances; Z79.899 Other long term (current) drug therapy
CPT/HCPCS: 99281

== ENCOUNTER 2021-02-18 14:01 | Emergency (ER) | payer MEDICAID ==
[~2021-02-18] VITALS: Ht 149.9 cm; Wt 86.2 kg
--- NOTE | 2021-02-18 14:10 | NUR ---
Patient to ER TRIAGE for evaluation.
--- NOTE | 2021-02-18 14:20 | NUR ---
PT CAME INTO ER REQUESTING BP MEDICATION REFILL. PT ALSO STATES THAT SHE IS HAVING ABD PAIN AND WOULD LIKE PAIN MEDICATION. PT IS AMBULATORY, AAOX4, V/S STABLE, NO DISTRESS NOTED. DENIES N/V/D.
--- NOTE | 2021-02-18 14:25 | NUR ---
Patient to triage to gown for evaluation. Side rails up.
--- NOTE | 2021-02-18 14:32 | NUR ---
ER DR. SARGENT EXAMINING PT IN TRIAGE
[2021-02-18] MEDS ORDERED: TOPXL100 PO (14:38)
[2021-02-18] MEDS ORDERED: HYDROcodone/ACETAMIN 10-325 MG TAB PO ONE (14:45)
[2021-02-18 14:47] VITALS: BP_SYST 177
[2021-02-18 15:05] VITALS: BP_SYST 175
--- NOTE | 2021-02-18 15:06 | NUR ---
Patient given written and verbal discharge instructions and verbalizes understanding. ER MD discussed with patient the results and treatment provided. Patient in stable condition. ID arm band removed. Rx of TOPROL XL given. Patient educated on pain management and to follow up with PMD. Pain Scale 2/10. Opportunity for questions provided and answered. Medication side effect fact sheet provided.
== END 2021-02-18 15:05 | disposition home or self-care (01) ==
LOC: SED 14:01
DX: F11.23 Opioid dependence with withdrawal (principal); I10 Essential (primary) hypertension; Z88.0 Allergy status to penicillin; Z88.6 Allergy status to analgesic agent; Z88.8 Allergy status to other drugs, medicaments and biological substances; Z79.899 Other long term (current) drug therapy; Z76.0 Encounter for issue of repeat prescription
CPT/HCPCS: 99283

== ENCOUNTER 2021-03-09 15:00 | Emergency (ER) | payer MEDICAID ==
[~2021-03-09] VITALS: Ht 144.8 cm; Wt 79.4 kg
[2021-03-09 15:30] VITALS: BP_SYST 160
[2021-03-09] MEDS: MORPHINE 2 MG/ML INJ. SYRINGE IM ONE (17:09)
[2021-03-09] MEDS: ONDANSETRON 4 MG ODT TAB PO ONE (17:09)
[2021-03-09 17:57] VITALS: BP_SYST 155
== END 2021-03-09 17:57 | disposition home or self-care (01) ==
LOC: SED 15:00
DX: F11.23 Opioid dependence with withdrawal (principal); I10 Essential (primary) hypertension; Z88.0 Allergy status to penicillin; Z88.6 Allergy status to analgesic agent; Z88.8 Allergy status to other drugs, medicaments and biological substances; Z79.899 Other long term (current) drug therapy
CPT/HCPCS: 96372; 99283; J2270; Q0162

== ENCOUNTER 2021-03-11 21:58 | Emergency (ER) | payer MEDICAID ==
[~2021-03-11] VITALS: Ht 175.3 cm; Wt 79.4 kg
[2021-03-11 22:31] VITALS: BP_SYST 152
--- NOTE | 2021-03-11 22:36 | NUR ---
Patient triaged and placed in waiting room. VSS and patient appears in no acute distress at this time. Accompanied by SELF, awaiting available bed, and MD notified of need for MSE.
--- NOTE | 2021-03-11 22:36 | NUR ---
BIB BLS FROM [facility] C/O BILAT PELVIC PAIN X 2DAYS. +N/V/D
--- NOTE | 2021-03-11 22:40 | NUR ---
DR. CARDENAS IN TRIAGE FOR MSE
[2021-03-11] MEDS ORDERED: ONDANSETRON 4 MG ODT TAB PO ONE (23:00)
[2021-03-11] MEDS ORDERED: ONDANSETRON 4 MG ODT TAB ONE (23:08)
[2021-03-11] MEDS ORDERED: ONDA4TAB5 PO (23:56)
[2021-03-12 00:04] VITALS: BP_SYST 152
--- NOTE | 2021-03-12 00:04 | NUR ---
Patient given written and verbal discharge instructions and verbalizes understanding. ER MD discussed with patient the results and treatment provided. Patient in stable condition. ID arm band removed. Rx of ZOFRAN given. Patient educated on pain management and to follow up with PMD. Pain Scale 1/10. Opportunity for questions provided and answered. Medication side effect fact sheet provided.
== END 2021-03-12 00:04 | disposition home or self-care (01) ==
LOC: SED 21:58
DX: R19.7 Diarrhea, unspecified (principal); R11.2 Nausea with vomiting, unspecified; I10 Essential (primary) hypertension; F32.9 Major depressive disorder, single episode, unspecified; F41.9 Anxiety disorder, unspecified; Z76.5 Malingerer [conscious simulation]; Z88.0 Allergy status to penicillin; Z88.6 Allergy status to analgesic agent; Z79.899 Other long term (current) drug therapy
CPT/HCPCS: 99283; Q0162

== ENCOUNTER 2021-04-19 16:25 | Emergency (ER) | payer MEDICAID ==
[~2021-04-19] VITALS: Ht 147.3 cm; Wt 99.8 kg
[2021-04-19 16:25] VITALS: BP_SYST 120
[~2021-04-19 16:25] MED LIST changes: +ONDA4TAB5 PO
--- NOTE | 2021-04-19 16:38 | NUR ---
ER IN AMBULANCE examining patient.
--- NOTE | 2021-04-19 17:00 | NUR ---
PATIENT ARRIVED ALS FOR POSSIBLE OVERDOSE. PATIENT STATES SHE TOOK 10-12 PILLS OF AMBIEN AT UNKNOWN PLACE. PATIENT IS AWAKE ALERT AND ORIENTED X4. PATIENT IS YELLING AND SCREAMING SOMEONE HELP ME. PATIENT HAS HISTORY OF DRUG ABUSE AND PSYCH. DENIES ANY PAIN.
[2021-04-19 18:47] LABS: BILIRUBIN,URINE NEGATIVE (NEGATIVE); BLOOD, URINE NEGATIVE (NEGATIVE); CLARITY/URINE SL CLOUDY (CLEAR); COLOR,URINE YELLOW (YELLOW); GLUCOSE,URINE NEGATIVE (NEGATIVE); KETONES,URINE NEGATIVE (NEGATIVE); LEUKOCYTE ESTERASE ,URINE 1+ (NEGATIVE); NITRITE, URINE NEGATIVE (NEGATIVE); PROTEIN URINE NEGATIVE (NEGATIVE); UROBILINOGEN,URINE 0.2 (0.2-1.0)
[2021-04-19 18:54] LABS: RBC,URINE 0-3 /HPF (0-3)
[2021-04-19 18:55] LABS: BACTERIA,URINE MODERATE /HPF (None Seen); MUCUS,URINE None Seen /LPF (None Seen)
[2021-04-19 18:59] LABS: BARBITURATE, URINE NEGATIVE (NEG <=200); BENZODIAZEPINE, URINE POSITIVE (NEG <=150); CANNABINOID, URINE NEGATIVE (NEG <=50); COCAINE, URINE NEGATIVE (NEG <=150); METHAMPHETAMINES SCREEN,URINE NEGATIVE (NEG <=500); OPIATE, URINE NEGATIVE (NEG <=100); PHENCYCLIDINE SCREEN,URINE NEGATIVE (NEG <=25); UR TRICYCLIC ANTIDEPRESSANTS NEGATIVE (NEG <=300); URINE AMPHETAMINE NEGATIVE (NEG <=500); URINE METHADONE NEGATIVE (NEG <=200); URINE OXYCODONE SCREEN NEGATIVE (NEG <=100); URINE PROPOXYPHENE SCREEN NEGATIVE (NEG <=300)
--- NOTE | 2021-04-19 19:53 | NUR ---
Phlebo to ambulance to draw blood. Patient refuses for blood draw and states " I will wait for an IV line and wants to come inside." notified
--- NOTE | 2021-04-19 20:30 | NUR ---
SPOKE TO PATIENT IN AMBULANCE BAY, PATIENT IS YELLING AND SCREAMING. PATIENT REDIRECTED. PATIENT REQUESTING TO LEAVE FROM [facility]. PATIENT STATES SHE FEELS FINE. CALLED PATIENT'S ON PATIENT'S CELL PHONE PER HER REQUEST. HE WILL COME AND PICK PATIENT UP IN 20 MINS.
[2021-04-19 21:44] VITALS: BP_SYST 118
--- NOTE | 2021-04-19 21:44 | NUR ---
Patient given written and verbal discharge instructions and verbalizes understanding. ER MD discussed with patient the results and treatment provided. Patient in stable condition. ID arm band removed. NO RX GIVEN. Patient educated on pain management and to follow up with PMD. Pain Scale 0/10 Opportunity for questions provided and answered. Medication side effect fact sheet provided.
== END 2021-04-19 21:44 | disposition home or self-care (01) ==
LOC: SED 16:25 → MERGE 16:25 → SED 21:44
DX: T42.6X1A Poisoning by other antiepileptic and sedative-hypnotic drugs, accidental (unintentional), initial encounter (principal); R10.12 Left upper quadrant pain; Y92.89 Other specified places as the place of occurrence of the external cause
CPT/HCPCS: 80307; 81000; 81025; 87086; 93005; 99284

== ENCOUNTER → 2021-07-14 | Emergency (ER) | payer MEDICAID, SELFPAY ==
[~2021-07-14] VITALS: Ht 144.8 cm; Wt 80.7 kg
[~2021-07-14] MED LIST changes: +HYDR-3917 PO; +MORPHINE 4 MG INJ. 4 MG/ML VIAL IM ONE; +VENL37.55 PO
[2021-07-14 16:16] VITALS: BP_SYST 201
--- NOTE | 2021-07-14 16:51 | NUR ---
Patient to ER bed 03 to gown for evaluation. Side rails up.
[2021-07-14 19:58] LABS: EOSINOPHILS # (AUTO) 0.2 K/uL (0.0-0.4); WHITE BLOOD COUNT (AUTO) 9.6 K/uL (4.8-10.8)
[2021-07-14 20:07] LABS: BASOPHILS # (AUTO) 0.1 K/uL (0.0-0.2); BASOPHILS % (AUTO) 0.6 % (0.0-2.0); HEMATOCRIT 34.6 % (36-48); HEMOGLOBIN 10.7 g/dL (12.0-16.0); LYMPHOCYTES % (AUTO) 20.5 % (20.5-51.5); MEAN CORPUSCULAR HEMOGLOBIN 22 pg (27-31); MEAN CORPUSCULAR HGB CONC 31 % (32-36); MEAN CORPUSCULAR VOLUME 73 fL (79.0-98.0); MONOCYTES # (AUTO) 0.7 K/uL (0.0-1.0); MONOCYTES % (AUTO) 7.5 % (1.7-9.3); NEUTROPHILS # (AUTO) 6.6 K/uL (1.8-7.7); NEUTROPHILS % (AUTO) 69.4 % (40.0-70.0); PLATELET COUNT (AUTO) 253 K/uL (130-430); RED BLOOD CELL COUNT(AUTO) 4.75 MIL/uL (4.2-6.2)
[2021-07-14 20:24] LABS: POTASSIUM 3.7 mmol/L (3.5-5.1)
[2021-07-14 20:32] LABS: ALBUMIN 3.9 g/dL (3.4-4.8); CALCIUM 9.1 mg/dL (8.4-11.0); CREATININE 0.67 mg/dL (0.55-1.30)
[2021-07-14 20:57] LABS: TOTAL BILIRUBIN 0.2 mg/dL (0.0-1.0)
[2021-07-14 21:34] LABS: ERYTHROCYTE SEDIMENTATION RATE 23 MM/HR (0-20)
== END | disposition home or self-care (01) ==
LOC: SED 15:58
DX: R10.32 Left lower quadrant pain (principal); I10 Essential (primary) hypertension; Z88.0 Allergy status to penicillin; Z88.6 Allergy status to analgesic agent; Z88.8 Allergy status to other drugs, medicaments and biological substances; Z79.899 Other long term (current) drug therapy
CPT/HCPCS: 36415; 74176; 76376; 80053; 83690; 85025; 85651; 96372; 99284; J2270

== ENCOUNTER 2021-07-20 06:15 | Emergency (ER) | payer MEDICAID ==
[~2021-07-20] VITALS: Ht 149.9 cm; Wt 81.6 kg
[~2021-07-20 06:15] MED LIST changes: -MORPHINE 4 MG INJ. 4 MG/ML VIAL IM ONE
[2021-07-20 06:44] VITALS: BP_SYST 168
--- NOTE | 2021-07-20 06:50 | NUR ---
Patient triaged and placed in waiting room. VS checked and patient appears in no acute distress at this time. Awaiting available bed, and MD notified of need for MSE.
--- NOTE | 2021-07-20 07:38 | NUR ---
Pt to bed #6 coming from home ambulatory with steady gait. Pt is A&Ox4. Skin intact. Pt has hiatal hernia present. Pt c/o LLQ abdominal pain that she rates 10/10 non-radiating. States she also has n/v. Has vomited twice last night. Denies chest pain and sob. VSS. Bed in lowest position.
--- NOTE | 2021-07-20 07:50 | NUR ---
Dr. Chamberlain at bedside examining pt.
[2021-07-20] MEDS ORDERED: HYDROcodone/ACETAMIN 5-325 MG TAB (NORCO/ VICODIN) PO ONE (08:00)
--- NOTE | 2021-07-20 08:15 | NUR ---
Notified Dr. Chamberlain of pt's HR being at 117 and FIELD MANAGER at 159/103. He gave no new orders at this time and stated "I will be discharging pt."..
[2021-07-20 08:18] VITALS: BP_SYST 159
--- NOTE | 2021-07-20 08:19 | NUR ---
Patient given written and verbal discharge instructions and verbalizes understanding. ER MD discussed with patient the results and treatment provided. Patient in stable condition. ID arm band removed. Patient educated on pain management and to follow up with PMD. Pain Scale []. Opportunity for questions provided and answered. Medication side effect fact sheet provided.
== END 2021-07-20 08:18 | disposition home or self-care (01) ==
LOC: SED 06:15
DX: K42.9 Umbilical hernia without obstruction or gangrene (principal); F13.20 Sedative, hypnotic or anxiolytic dependence, uncomplicated; I10 Essential (primary) hypertension; Z76.5 Malingerer [conscious simulation]; Z88.0 Allergy status to penicillin; Z91.09 Other allergy status, other than to drugs and biological substances
CPT/HCPCS: 99283

== ENCOUNTER 2021-07-27 06:09 | Emergency (ER) | payer MEDICAID ==
[~2021-07-27] VITALS: Ht 149.9 cm; Wt 82.6 kg
[2021-07-27 06:15] VITALS: BP_SYST 137
[2021-07-27] MEDS ORDERED: ALPRAZolam 0.25 MG TABLET PO ONE (06:30)
[2021-07-27] MEDS ORDERED: SOM350 PO (06:34)
[2021-07-27 06:46] VITALS: BP_SYST 137
[2021-07-27] MEDS ORDERED: CARB15DR93 EACH EAR (06:46)
== END 2021-07-27 06:46 | disposition home or self-care (01) ==
LOC: SED 06:09
DX: F41.9 Anxiety disorder, unspecified (principal); M54.50 Low back pain, unspecified; G89.29 Other chronic pain; H61.23 Impacted cerumen, bilateral; E11.9 Type 2 diabetes mellitus without complications; I10 Essential (primary) hypertension; L23.1 Allergic contact dermatitis due to adhesives; Z88.0 Allergy status to penicillin; Z88.8 Allergy status to other drugs, medicaments and biological substances
CPT/HCPCS: 99283

== ENCOUNTER 2021-08-16 12:57 | Emergency (ER) | payer MEDICAID ==
[~2021-08-16] VITALS: Ht 149.9 cm; Wt 85.7 kg
[~2021-08-16 12:57] MED LIST changes: +CARB15DR93 EACH EAR; +SOM350 PO
[2021-08-16 13:02] VITALS: BP_SYST 152
--- NOTE | 2021-08-16 13:05 | NUR ---
pt triaged in er room placed in room 3 Addendum: 08/16/21 at 1322 by VERENICENMONICA verified pt pharmacy and allergies
--- NOTE | 2021-08-16 13:06 | NUR ---
Dr Garcia at [facility] pt.
--- NOTE | 2021-08-16 13:10 | NUR ---
Patient BIB for c/c of RLQ pain, patient in no acute distress, placed onto monitor vitals stable WNL. Patient states, "I take Xanax and Soma". When asked who prescribes the medication patient states, "the urgent care". Previous records reviewed and noted patient has been seen in [place] [facility] on multiple previous occasions. MD has reviewed previous visits. Patient states, "Can i have just a little morphine". MD at bedside and has explained to patient she will not receive any narcotic pain Rx while here in the ED. After MD discussed plan of care with patient, patient states, "I do not have any more pain and want to go home". Patient has called friend on her cell phone and has requested metal pickling equipment operator from the ER.
--- NOTE | 2021-08-16 13:11 | NUR ---
Patient ambulates on her own, denies pain and or discomfort. AOx4 in no acute distress and or discomfort.
[2021-08-16] MEDS ORDERED: NACL 0.9% 1,000 ML IV ONE (13:15)
--- NOTE | 2021-08-16 13:20 | NUR ---
Patient called friend and has arranged transport for pickle water pump operator.
--- NOTE | 2021-08-16 13:42 | NUR ---
Patient has signed out AMA, document signed, charge aware.
[2021-08-16 13:46] VITALS: BP_SYST 152
--- NOTE | 2021-08-16 13:47 | NUR ---
Patient does not wish to proceed with medical care recommended by Dr Garcia. Patient given information related to possible complications, up to and including , which could occur as a result of leaving hospital at this time. Patient verbalizes understanding of risks involved leaving against medical advice. Patient has signed AMA form.
== END 2021-08-16 13:46 | disposition left against medical advice (07) ==
LOC: SED 12:57
DX: G89.29 Other chronic pain (principal); F41.9 Anxiety disorder, unspecified; R46.89 Other symptoms and signs involving appearance and behavior; Z76.5 Malingerer [conscious simulation]; I10 Essential (primary) hypertension; Z88.0 Allergy status to penicillin; Z88.8 Allergy status to other drugs, medicaments and biological substances; Z88.5 Allergy status to narcotic agent; Z88.6 Allergy status to analgesic agent; Z91.048 Other nonmedicinal substance allergy status; Z79.899 Other long term (current) drug therapy
CPT/HCPCS: 99281; 99283

== ENCOUNTER 2021-10-18 06:21 | Emergency (ER) | payer MEDICAID ==
[~2021-10-18] VITALS: Ht 144.8 cm; Wt 86.2 kg
[~2021-10-18 06:21] MED LIST changes: +IBUP-1969 PO
[2021-10-18 06:27] VITALS: BP_SYST 154
--- NOTE | 2021-10-18 06:35 | NUR ---
RECEIVED C/O THERESA KNEE PAIN S/P FALL ROLLED OVER HER BED AND LANDED ON HER KNEES, PT DENIES KO. PT ARRIVED IN ER, USING CANE AND ABLE TO AMBULATE. PER PT SHE HAS HX OF SCOLIOSIS, ANXIETY AND HTN. PT ASISTED TO RM 3, REPORT GIVEN TO AMADA TORIBIO.
--- NOTE | 2021-10-18 06:43 | NUR ---
PT BROUGHT TO ER BY , PT PRESENTED WITH COMPLAINT OF BILATERAL KNEE PAIN AND LEFT ANKLE PAIN SUSTAIN FROM FALLING OFF THE BED. PT DENIES HITTING HEAD, PT HAS FULL RANGE OF MOTION AND STRENGTH BY LATERALLY.
--- NOTE | 2021-10-18 06:50 | NUR ---
PT IS IN BED WITH BED LOWERED LOCKED AND RAILS ARE UP.
--- NOTE | 2021-10-18 06:55 | NUR ---
DR ALAN AT BEDSIDE
--- NOTE | 2021-10-18 07:01 | NUR ---
PT ELOPED, STARTED SCREAMING, REMOVING PB CUFF, LEADS AND O2 MONITOR. PT AMBULATED OUT WITHOUT ASSISTANCE Addendum: 10/18/21 at 0705 by GIN PT GAIT WAS STEADY, HAD CANE IN HAND BUT DID NOT USE.
== END 2021-10-18 07:06 | disposition left against medical advice (07) ==
LOC: SED 06:21
DX: F41.9 Anxiety disorder, unspecified (principal); F32.9 Major depressive disorder, single episode, unspecified; M25.561 Pain in right knee; M25.562 Pain in left knee; I10 Essential (primary) hypertension; F11.20 Opioid dependence, uncomplicated; F13.20 Sedative, hypnotic or anxiolytic dependence, uncomplicated; Z88.0 Allergy status to penicillin; Z88.5 Allergy status to narcotic agent; Z88.6 Allergy status to analgesic agent; Z88.8 Allergy status to other drugs, medicaments and biological substances; Z76.5 Malingerer [conscious simulation]; Z76.0 Encounter for issue of repeat prescription; Z79.899 Other long term (current) drug therapy
CPT/HCPCS: 99281

== ENCOUNTER 2021-10-19 14:35 | Observation (INO) | payer MEDICAID ==
[~2021-10-19] VITALS: Ht 144.8 cm; Wt 86.2 kg
[2021-10-19] MEDS ORDERED: ONDANSETRON 4 MG ODT TAB PO ONE (15:15)
[2021-10-19] MEDS ORDERED: LORazepam 1 MG TABLET PO ONE (15:15)
[2021-10-19 15:46] LABS: BASOPHILS # (AUTO) 0.1 K/uL (0.0-0.2); BASOPHILS % (AUTO) 1.3 % (0.0-2.0); EOSINOPHILS # (AUTO) 0.2 K/uL (0.0-0.4); HEMATOCRIT 29.8 % (36-48); HEMOGLOBIN 9.1 g/dL (12.0-16.0); LYMPHOCYTES # (AUTO) 1.2 K/uL (1.0-5.5); LYMPHOCYTES % (AUTO) 19.5 % (20.5-51.5); MEAN CORPUSCULAR HEMOGLOBIN 22 pg (27-31); MEAN CORPUSCULAR HGB CONC 31 % (32-36); MEAN CORPUSCULAR VOLUME 71 fL (79.0-98.0); MONOCYTES # (AUTO) 0.4 K/uL (0.0-1.0); NEUTROPHILS # (AUTO) 4.2 K/uL (1.8-7.7); NEUTROPHILS % (AUTO) 70.2 % (40.0-70.0); PLATELET COUNT (AUTO) 224 K/uL (130-430); RED BLOOD CELL COUNT(AUTO) 4.18 MIL/uL (4.2-6.2); RED CELL DISTRIBUTION WIDTH 17.8 % (9.0-15.0)
[2021-10-19 16:52] LABS: CALCIUM 7.7 mg/dL (8.4-11.0); CREATININE 0.68 mg/dL (0.55-1.30); POTASSIUM 3.7 mmol/L (3.5-5.1)
[2021-10-19 16:58] LABS: ALBUMIN 3.4 g/dL (3.4-4.8); TOTAL BILIRUBIN 0.2 mg/dL (0.0-1.0)
[2021-10-19 17:02] VITALS: BP_SYST 133
--- NOTE | 2021-10-19 17:06 | NUR ---
Patient to ER bed 3 for evaluation. Side rails up. Report given to Tali TORIBIO.
--- NOTE | 2021-10-19 17:08 | NUR ---
Patient bib self to ED for c/o anxiety related to non compliance with anti anxiety medications prescribed. Patient A/Ox4, VSS, ambulatory with steady gait, resp even and unlabored. Patient eating dinner at bedside that she brought from home and resting comfortably. Nad noted at this time.
[2021-10-19] MEDS ORDERED: HYDROcodone/ACETAMIN 5-325 MG TAB (NORCO/ VICODIN) PO ONE ×2 (17:30→19:30)
[2021-10-19] MEDS ORDERED: LORazepam 1 MG TABLET ONE (17:40)
[2021-10-19] MEDS ORDERED: ONDANSETRON 4 MG ODT TAB ONE (17:41)
--- NOTE | 2021-10-19 18:38 | NUR ---
Admit bed requested Patient will be admitted to care of Dr. Herbert. Admitted to MS unit. Diagnosis Anxiety Inpatient (Yes or No) N Observation (Yes or No) Y Orientation concerns or request close to nursing station (Yes or No) N Covid Status Pend On vent or bipap N Isolation requirements N Needs a sitter N From Home (Yes or if No enter name of facility) Home Requires Dialysis (Yes or No) N Med Rec Completed (Yes of No) Y
--- NOTE | 2021-10-19 19:21 | NUR ---
Report given to Anny TORIBIO to assume care of patient
--- NOTE | 2021-10-19 19:30 | NUR ---
report from yrn white. pt waiting for m/s admission. vss continued oservation.
[2021-10-19] MEDS ORDERED: ZOLPIDEM TARTRATE 5 MG TABLET PO ONE (20:30)
--- NOTE | 2021-10-19 20:45 | NUR ---
Patient will be admitted to DC, room 130B. Admitting RN: Qasim
--- NOTE | 2021-10-19 20:46 | NUR ---
Patient moved to MS via gurney, patient stable
[2021-10-19 21:58] VITALS: BP_SYST 127
--- NOTE | 2021-10-19 22:15 | NUR ---
ADMISSION OF 40 YEAR OLD FEMALE UNDER DOCTOR MD BRANDEN. PATIENT REQUESTS TREATMENT FOR SLEEP DISORDER, SEIZURE PREVENTION, ABDOMINAL PAIN, HUNGER, AND ANXIETY. ARELI PISANO RN
--- NOTE | 2021-10-19 22:16 | NUR ---
PAGEChelsie: DR BRANDEN PAGE, PT IS ASKING FOR MEDICATION FOR HER ANXIETY AND PAIN .
[2021-10-19] MEDS ORDERED: LORazepam 1 MG TABLET PO SCH (22:30)
[2021-10-20 00:28] VITALS: BP_SYST 130
--- NOTE | 2021-10-20 01:05 | NUR ---
PAGED: DR BRANDEN PAGE , PT IS SCREAMING , C/O PAIN AND ANXIETY
[2021-10-20] MEDS ORDERED: LORazepam 1 MG TABLET PO PRN (01:15)
[2021-10-20] MEDS ORDERED: MORPHINE SULFATE 10 MG/5 ML ORAL SOL. UDC PO ONE (02:45)
--- NOTE | 2021-10-20 06:58 | NUR ---
TELEPSYCH CONSULT WAS CALLED IN BY MADELAINE.
[2021-10-20 07:30] VITALS: BP_SYST 145
--- NOTE | 2021-10-20 08:42 | NUR ---
AMA: Patient does not wish to proceed with medical care recommended by Dr. Jose. Patient given information related to possible complications, up to and including , which could occur as a result of leaving hospital at this time. Patient verbalizes understanding of risks involved leaving against medical advice. Patient has signed AMA form.
== END 2021-10-20 08:48 | disposition left against medical advice (07) ==
LOC: SED 14:35 → INTOOBSV 18:35 → STU 18:35 → SMU 19:15
PROVIDERS: ADMIT Family Medicine; ATTEND Family Medicine
DX: G89.4 Chronic pain syndrome (principal); Z20.822 Contact with and (suspected) exposure to COVID-19; M54.9 Dorsalgia, unspecified; G47.00 Insomnia, unspecified; D64.9 Anemia, unspecified; G40.909 Epilepsy, unspecified, not intractable, without status epilepticus; K46.9 Unspecified abdominal hernia without obstruction or gangrene; I10 Essential (primary) hypertension; R11.0 Nausea; F13.239 Sedative, hypnotic or anxiolytic dependence with withdrawal, unspecified; F41.8 Other specified anxiety disorders; Z88.0 Allergy status to penicillin; Z79.899 Other long term (current) drug therapy
CPT/HCPCS: 36415; 80053; 84702; 85025; 87426; 99291; 99292; G0378 ×2; Q0162

== ENCOUNTER → 2021-10-20 | Emergency (ER) | payer MEDICAID | END | disposition home or self-care (01) | LOC: SED 08:42 | DX: F41.0 Panic disorder [episodic paroxysmal anxiety] (principal); Z53.21 Procedure and treatment not carried out due to patient leaving prior to being seen by health care provider ==

== ENCOUNTER 2021-10-30 13:22 | Emergency (ER) | payer MEDICAID ==
[~2021-10-30] VITALS: Ht 149.9 cm; Wt 104.3 kg
[2021-10-30 14:00] VITALS: BP_SYST 137
[2021-10-30] MEDS ORDERED: LORazepam 1 MG TABLET PO ONE (15:45)
[2021-10-30 17:17] VITALS: BP_SYST 132
--- NOTE | 2021-10-30 17:17 | NUR ---
Patient given written and verbal discharge instructions and verbalizes understanding. ER MD discussed with patient the results and treatment provided. Patient in stable condition. ID arm band removed. No rx given. Patient educated on pain management and to follow up with PMD. Pain Scale 0/10 Opportunity for questions provided and answered.
== END 2021-10-30 17:17 | disposition home or self-care (01) ==
LOC: SED 13:22
DX: S80.01XA Contusion of right knee, initial encounter (principal); F41.9 Anxiety disorder, unspecified; Z76.5 Malingerer [conscious simulation]; I10 Essential (primary) hypertension; F32.9 Major depressive disorder, single episode, unspecified; Z88.0 Allergy status to penicillin; Z88.6 Allergy status to analgesic agent; Z88.8 Allergy status to other drugs, medicaments and biological substances; Z79.899 Other long term (current) drug therapy; W01.0XXA Fall on same level from slipping, tripping and stumbling without subsequent striking against object, initial encounter; Y93.89 Activity, other specified; Y92.89 Other specified places as the place of occurrence of the external cause; Y99.8 Other external cause status
CPT/HCPCS: 99283

== ENCOUNTER → 2021-11-11 | Emergency (ER) | payer MEDICAID ==
[~2021-11-11] VITALS: Ht 149.9 cm; Wt 90.7 kg
[~2021-11-11] MED LIST changes: +MORPHINE 4 MG INJ. 4 MG/ML VIAL IM ONE
[2021-11-11 11:43] VITALS: BP_SYST 167
== END | disposition home or self-care (01) ==
LOC: SED 11:05
DX: M43.6 Torticollis (principal); M54.2 Cervicalgia; F41.9 Anxiety disorder, unspecified; I10 Essential (primary) hypertension; Z88.0 Allergy status to penicillin; Z88.5 Allergy status to narcotic agent; Z88.6 Allergy status to analgesic agent; Z88.8 Allergy status to other drugs, medicaments and biological substances; Z79.899 Other long term (current) drug therapy
CPT/HCPCS: 99281; J2270

== ENCOUNTER 2021-11-22 01:09 | Emergency (ER) | payer MEDICAID ==
[~2021-11-22] VITALS: Ht 144.8 cm; Wt 81.6 kg
[~2021-11-22 01:09] MED LIST changes: -MORPHINE 4 MG INJ. 4 MG/ML VIAL IM ONE
[2021-11-22 01:34] VITALS: BP_SYST 130
== END 2021-11-22 06:42 | disposition left against medical advice (07) ==
LOC: SED 01:09
DX: M79.10 Myalgia, unspecified site (principal); R53.1 Weakness; R42 Dizziness and giddiness; I10 Essential (primary) hypertension; Z88.0 Allergy status to penicillin; Z88.5 Allergy status to narcotic agent; Z88.6 Allergy status to analgesic agent; Z88.8 Allergy status to other drugs, medicaments and biological substances; Z79.899 Other long term (current) drug therapy
CPT/HCPCS: 99281

== ENCOUNTER 2021-11-22 08:11 | Emergency (ER) | payer MEDICAID ==
[~2021-11-22] VITALS: Ht 144.8 cm; Wt 81.6 kg
[2021-11-22 08:40] VITALS: BP_SYST 154
== END 2021-11-22 11:58 | disposition left against medical advice (07) ==
LOC: SED 08:11
DX: M54.2 Cervicalgia (principal); M54.50 Low back pain, unspecified; G89.29 Other chronic pain; Z76.5 Malingerer [conscious simulation]; Z79.899 Other long term (current) drug therapy
CPT/HCPCS: 99283

== ENCOUNTER 2021-11-24 00:45 | Emergency (ER) | payer MEDICAID ==
[~2021-11-24] VITALS: Ht 142.2 cm; Wt 81.6 kg
--- NOTE | 2021-11-24 00:55 | NUR ---
Spoke to patient at this time and she immediately states "Can you give me one norco please and I will leave. I will not bother you anymore just give me one norco so I can go sleep at home". Pt informs me she is taking tylenol and advil at home for pain "but it does not work".
--- NOTE | 2021-11-24 01:04 | NUR ---
Pt now informs me "I am allergic to advil and tylenol I need norco please". I then proceeded to ask patient why she is taking those medications at home, as stated in the initial interaction, if she is allergic to them. Pt states "because they are all I have".
[2021-11-24 01:30] VITALS: BP_SYST 149
--- NOTE | 2021-11-24 01:30 | NUR ---
Patient AAO x 4, came in to the ER with chief complaint of right hip pain. Patient is requesting a morphine shot. Patient is in the emergency room on a regular basis seeking morphine. Patient has an opioid use disorder and is very persistent. Patient states that if she gets morphine shot, she promises not to come back. Patient comes emergency room with numerous complaints of abdominal pain times, hip pain that at times anxiety and multiple complaints. She states her hip pain is about a 10/10 and denies any recent injuries. Patient ambulatory with steady gait, breathing easy, respirations even and unlabored.
[2021-11-24 05:30] VITALS: BP_SYST 145
--- NOTE | 2021-11-24 05:30 | NUR ---
Patient given written and verbal discharge instructions by Dr Molina. ER MD discussed with patient the care provided. Patient in stable condition. No Rx given. Patient educated on pain management and to follow up with PMD. Opportunity for questions provided and answered by Dr Molina. Patient accompanied by .
== END 2021-11-24 05:30 | disposition home or self-care (01) ==
LOC: SED 00:45
DX: M25.551 Pain in right hip (principal); F11.24 Opioid dependence with opioid-induced mood disorder; I10 Essential (primary) hypertension; Z88.0 Allergy status to penicillin; Z88.5 Allergy status to narcotic agent; Z88.6 Allergy status to analgesic agent; Z88.8 Allergy status to other drugs, medicaments and biological substances; Z79.899 Other long term (current) drug therapy
CPT/HCPCS: 99283